=== PATIENT | male | born 1980 | race Caucasian/White ===

== ENCOUNTER 2022-04-11 14:03 | Emergency (ER) | payer MEDICARE, OTHER ==
[~2022-04-11] VITALS: Ht 182.9 cm; Wt 186.4 kg
--- NOTE | 2022-04-11 14:03 | NUR ---
Dr Geiger at the bedside for MSE.
[2022-04-11] MEDS ORDERED: ALBUTEROL SULFATE 2.5 MG/3 ML NEBU NEB ONE (14:15)
[2022-04-11] MEDS ORDERED: methylPREDNISolone SOD SUCC 125 MG/2 ML VIAL IV ONE (14:15)
[2022-04-11] MEDS ORDERED: IPRATROPIUM BROMIDE 0.5 MG/2.5 ML NEBU NEB ONE (14:15)
[2022-04-11] MEDS ORDERED: ALBUTEROL SULFATE 2.5 MG/3 ML NEBU ONE (14:31)
[2022-04-11] MEDS ORDERED: IPRATROPIUM BROMIDE 0.5 MG/2.5 ML NEBU ONE (14:31)
[2022-04-11] MEDS ORDERED: methylPREDNISolone SOD SUCC 125 MG/2 ML VIAL ONE (14:41)
[2022-04-11 14:42] LABS: HEMATOCRIT 27.3 % (36.7-47.1); MEAN CORPUSCULAR HEMOGLOBIN 23.9 uug (23.8-33.4); MEAN CORPUSCULAR VOLUME 77.2 fL (73.0-96.2); PLATELET COUNT (AUTO) 307 K/uL (152-348)
--- NOTE | 2022-04-11 14:56 | NUR ---
Pt is requesting to have Morphine or Dilaudid for his lower extremities pain. Dr Geiger made aware.
[2022-04-11] MEDS ORDERED: ACETAMINOPHEN 325 MG TABLET PO ONE (15:00)
[2022-04-11 15:01] LABS: CARBON DIOXIDE 38 mmol/L (21-32); CHLORIDE 99 mmol/L (98-107); CREATININE 0.4 mg/dL (0.6-1.3); GLUCOSE 97 mg/dL (74-106); POTASSIUM 3.4 mmol/L (3.5-5.1); UREA NITROGEN, BLOOD 9 mg/dL (7-18)
--- NOTE | 2022-04-11 15:10 | NUR ---
Pt is sitting up in bed, eating lunch, NAD noted.
--- NOTE | 2022-04-11 15:30 | NUR ---
ER spoke to Pt's PMD Dr Green. Pt to be transfered back to facility.
[2022-04-11] MEDS ORDERED: BISA10SU61 RC (15:40)
[2022-04-11] MEDS ORDERED: HYDR-3980 PO (15:40)
[2022-04-11] MEDS ORDERED: BENZ-13 PO (15:40)
[2022-04-11] MEDS ORDERED: PALI234D IM (15:40)
[2022-04-11] MEDS ORDERED: TAMS-3 PO (15:40)
[2022-04-11] MEDS ORDERED: FLUT16SP16 BNOSTRILS (15:40)
[2022-04-11] MEDS ORDERED: DULO60CA45 PO (15:40)
[2022-04-11] MEDS ORDERED: NA P133E RC (15:40)
[2022-04-11] MEDS ORDERED: BENZ1TAB7 PO (15:40)
[2022-04-11] MEDS ORDERED: LACT1CAP61 PO (15:40)
[2022-04-11] MEDS ORDERED: METO25TA6 PO (15:40)
[2022-04-11] MEDS ORDERED: PHEN177S31 PO (15:40)
[2022-04-11] MEDS ORDERED: APIX5TAB4 PO (15:40)
[2022-04-11] MEDS ORDERED: MAGN400O6 PO (15:40)
[2022-04-11] MEDS ORDERED: ACET-73 PO (15:40)
[2022-04-11] MEDS ORDERED: LORA-259 PO (15:40)
--- NOTE | 2022-04-11 15:40 | NUR ---
Placed a call to [facility] for CCT transfer, ETA 45 min.
[2022-04-11] MEDS ORDERED: HYDROCODONE/APAP 5-325MG TABLET PO ONE (16:00)
[2022-04-11] MEDS ORDERED: HYDROCODONE/APAP 5-325MG TABLET ONE (16:04)
--- NOTE | 2022-04-11 17:30 | NUR ---
IV removed. Catheter intact and site benign. Pressure and 4x4 gauze applied to site. No bleeding noted.
--- NOTE | 2022-04-11 17:30 | NUR ---
Report given to transfering metal cut off saw operator, labs, xray and EKG result provided. Pt left Er in stable condition. All belongings sent w/ pt. Pt left ER via gurney.
[2022-04-11 17:32] VITALS: BP 155/80
== END 2022-04-11 17:32 ==
LOC: ER 14:03
DX: T17.590A Other foreign object in bronchus causing asphyxiation, initial encounter (principal); X58.XXXA Exposure to other specified factors, initial encounter; Y92.122 Bedroom in nursing home as the place of occurrence of the external cause; E66.01 Morbid (severe) obesity due to excess calories; Z20.822 Contact with and (suspected) exposure to COVID-19; E11.22 Type 2 diabetes mellitus with diabetic chronic kidney disease; N18.9 Chronic kidney disease, unspecified; G20 Parkinson's disease; N40.0 Benign prostatic hyperplasia without lower urinary tract symptoms; I12.9 Hypertensive chronic kidney disease with stage 1 through stage 4 chronic kidney disease, or unspecified chronic kidney disease; Z68.43 Body mass index [BMI] 50.0-59.9, adult; R06.02 Shortness of breath; Z79.899 Other long term (current) drug therapy; Z79.01 Long term (current) use of anticoagulants; F20.9 Schizophrenia, unspecified; Z93.0 Tracheostomy status; Z99.11 Dependence on respirator [ventilator] status
CPT/HCPCS: 36415; 71045; 80048; 83605; 83880; 84484; 85025; 87040 ×2; 87400; 87426; 93005; 96374; 99285; J2930; A4663; J3590

== ENCOUNTER 2022-11-12 23:33 | Inpatient (IN) | payer MEDICARE, OTHER ==
[~2022-11-12] VITALS: Ht 172.7 cm; Wt 172.2 kg
[~2022-11-12 23:33] MED LIST: ACET-73 PO; APIX5TAB4 PO; BENZ-13 PO; BENZ1TAB7 PO; BISA10SU61 RC; DULO60CA45 PO; FLUT16SP16 BNOSTRILS; HYDR-3980 PO; LACT1CAP61 PO; LORA-259 PO; MAGN400O6 PO; METO25TA6 PO; NA P133E RC; PALI234D IM; PHEN177S31 PO; TAMS-3 PO
--- NOTE | 2022-11-12 23:35 | NUR ---
Dr Armijo evaluating patient at bedside. MSE in progress.
[2022-11-13] MEDS ORDERED: CEFTRIAXONE 1 G in IV DEXTROSE 5% 50 ML IV ONE (00:15)
[2022-11-13] MEDS ORDERED: IV NORMAL SALINE 1000 ML BAG IV ONE (00:15)
[2022-11-13] MEDS ORDERED: CEFTRIAXONE /D5W 50ML IVPB **ER PYXIS IV ONE (00:22)
[2022-11-13] MEDS ORDERED: HYDROCODONE/APAP 10-325 MG TABLET PO ONE (00:30)
[2022-11-13] MEDS ORDERED: ONDANSETRON ODT 4 MG TAB.RAPDIS SL ONE (00:30)
[2022-11-13] MEDS ORDERED: HYDROCODONE/APAP 10-325 MG TABLET ONE (00:44)
[2022-11-13] MEDS ORDERED: ONDANSETRON ODT 4 MG TAB.RAPDIS ONE (00:44)
[2022-11-13 00:49] LABS: MEAN CORPUSCULAR HEMOGLOBIN 28.8 uug (23.8-33.4); PLATELET COUNT (AUTO) 307 K/uL (152-348)
[2022-11-13] MEDS ORDERED: DIVA125C2 PO (00:54)
[2022-11-13] MEDS ORDERED: ACET250T3 PO (00:54)
[2022-11-13] MEDS ORDERED: POLY17PO4 PO (00:54)
[2022-11-13] MEDS ORDERED: OXYC-128 PO (00:54)
[2022-11-13] MEDS ORDERED: GABA-532 PO (00:54)
[2022-11-13] MEDS ORDERED: IPRA3AMP22 IH (00:54)
[2022-11-13] MEDS ORDERED: PALI234D IM (00:54)
[2022-11-13] MEDS ORDERED: DIPH25CA83 PO (00:54)
[2022-11-13] MEDS ORDERED: MULT-594 PO (00:54)
[2022-11-13] MEDS ORDERED: LORA2ORA5 PO (00:54)
[2022-11-13] MEDS ORDERED: METO25TA6 PO (00:54)
[2022-11-13] MEDS ORDERED: CHLO473M3 MM (00:54)
[2022-11-13] MEDS ORDERED: DICY20TA11 PO (00:54)
[2022-11-13] MEDS ORDERED: BUPR150T10 PO (00:54)
[2022-11-13] MEDS ORDERED: HYOS0.1273 PO (00:54)
[2022-11-13] MEDS ORDERED: OLAN5TAB70 PO (00:54)
[2022-11-13] MEDS ORDERED: DRY EYE RELIEF EACHEYE (00:54)
[2022-11-13] MEDS ORDERED: PANT40TA49 PO (00:54)
[2022-11-13] MEDS ORDERED: ASCO-375 PO (00:54)
[2022-11-13] MEDS ORDERED: LACT10SO3 PO (00:54)
[2022-11-13] MEDS ORDERED: NA P133E4 RC (00:54)
[2022-11-13] MEDS ORDERED: MAGN400C PO (00:54)
[2022-11-13] MEDS ORDERED: MAGN400O6 PO (00:54)
[2022-11-13] MEDS ORDERED: BUME1TAB8 PO (00:54)
[2022-11-13] MEDS ORDERED: LIDO30AD10 TD (00:54)
[2022-11-13] MEDS ORDERED: MORP15TA PO (00:54)
[2022-11-13] MEDS ORDERED: MELA3TAB41 PO (00:54)
[2022-11-13] MEDS ORDERED: LACT1CAP69 PO (00:54)
[2022-11-13] MEDS ORDERED: SENN-261 PO (00:54)
[2022-11-13] MEDS ORDERED: SIME80TA15 PO (00:58)
[2022-11-13] MEDS ORDERED: BUDE10.2 IH (00:58)
[2022-11-13] MEDS ORDERED: CHOL100045 PO (00:58)
[2022-11-13] MEDS ORDERED: TAMS-3 PO (00:58)
[2022-11-13] MEDS ORDERED: SPIR25TA6 PO (00:58)
[2022-11-13] MEDS ORDERED: ONDA4TAB5 PO (00:58)
[2022-11-13] MEDS ORDERED: SILD50TA PO (00:58)
[2022-11-13 00:59] LABS: CARBON DIOXIDE 31 mmol/L (21-32); CHLORIDE 98 mmol/L (98-107); CREATININE 0.7 mg/dL (0.6-1.3); GLUCOSE 165 mg/dL (74-106); UREA NITROGEN, BLOOD 7 mg/dL (7-18)
[2022-11-13] MEDS ORDERED: INSU100V28 (01:03)
[2022-11-13 01:14] LABS: ALANINE AMINOTRANSFERASE 15 U/L (16-63); ALKALINE PHOSPHATASE 82 U/L (50-136); ASPARTATE AMINOTRANSFERASE 10 U/L (15-37); BILIRUBIN,DIRECT 0.2 mg/dL (0.0-0.2); BILIRUBIN,TOTAL 0.4 mg/dL (0.2-1.0)
--- NOTE | 2022-11-13 02:19 | NUR ---
Chest xray at bedside
--- NOTE | 2022-11-13 02:20 | NUR ---
UA sent to lab
--- NOTE | 2022-11-13 03:00 | NUR ---
Patient voided in urinal
[2022-11-13 03:22] LABS: *BILIRUBIN,URIN NEGATIVE (NEGATIVE); *BLOOD, URINE NEGATIVE (NEGATIVE); *CLARITY,URINE CLEAR (CLEAR); *COLOR,URINE YELLOW (YELLOW); *KETONES,URINE NEGATIVE (NEGATIVE); LEUKOCYTE ESTERASE ,URINE NEGATIVE (NEGATIVE); NITRITE, URINE NEGATIVE (NEGATIVE); PH,URINE 8.5 (5.0-8.0); UGLUCOSE NEGATIVE (NEGATIVE)
[2022-11-13] MEDS ORDERED: VANCOMYCIN IV 200 ML ONE (03:29)
[2022-11-13] MEDS ORDERED: VANCOMYCIN IV 1,000 MG in IV DEXTROSE 5% 250 ML IV ONE (03:30)
--- NOTE | 2022-11-13 03:30 | NUR ---
Pending admission, waiting for [employer] insurance approval.
[2022-11-13] MEDS ORDERED: levoFLOXacin 750 MG/D5W 150 ML PIGGYBACK IV ONE (03:45)
[2022-11-13] MEDS ORDERED: levoFLOXacin 750MG/D5W 150 ML IV ONE (04:16)
--- NOTE | 2022-11-13 09:25 | NUR ---
"OK to admit in our hospital" per ER registration/admitting staff [facility] hospitalist was paged.
--- NOTE | 2022-11-13 09:25 | NUR ---
Zbigniew kaye in ED - 11/13/22 at 0939 by CHRIS "OK to admit in our hospital" per ER registration/admitting staff John. CHANO [place] was paged.
--- NOTE | 2022-11-13 09:40 | NUR ---
Room 308 & nurse Ba will take this patient after the current patient in room 308 will go to 2nd floor medical-surgical floor and after housekeeping cleans room 308.
--- NOTE | 2022-11-13 10:12 | NUR ---
With environmental restoration planner ID#[id number], the patient's legal guardian/conservator MALISSA SIDHU (dad) wants to be contacted for any issues, treatment/procedures, development at telephone# . Patient has a mental disorder hence a copy of LETTERS OF CONSERVATORSHIP is in the chart. Patient's legal guardian/conservator Malissa Sidhu verbally expressed : 1.) that he does not want this patient to go back to [facility] when the current pneumonia is better and when patient is discharged from a hospital 2.) that if possible, this patient be transferred to [facility] with coordination by [facility] employment case manager/ patient's insurance [employer]/ [facility] itself 3.) TO HOLD if possible, patient's [place], morphine, gabapentin or sedatives because it will not help patient's lung function or "lung healing" 4.) to continue patient's psychiatric medicines (pills or powder forms)
--- NOTE | 2022-11-13 12:10 | NUR ---
Patient is resting comfortably on gurney using his personal electronic device, NAD. Patient is still waiting for an available medical-surgical nurse and bed at this time.
[2022-11-13] MEDS ORDERED: CHLORHEXIDINE GLUCONATE 15 ML MOUTHWASH MM SCH (12:15)
[2022-11-13] MEDS ORDERED: FLEET ENEMA 133 ML BOTTLE RC PRN (12:15)
[2022-11-13] MEDS ORDERED: ENOXAPARIN SODIUM 40 MG/0.4 ML DISP.SYRIN SQ SCH (12:30)
[2022-11-13] MEDS ORDERED: ONDANSETRON 4 MG/2 ML VIAL IV PRN (12:30)
[2022-11-13] MEDS ORDERED: ENOXAPARIN SODIUM 40 MG/0.4 ML DISP.SYRIN SQ ONE (12:44)
[2022-11-13] MEDS ORDERED: ACET500C48 PO (12:58)
[2022-11-13] MEDS: HYOSCYAMINE SULFATE 0.125 MG TABLET PO SCH ×2 (13:00→16:49)
--- NOTE | 2022-11-13 13:05 | NUR ---
Nursing supervisor correspondence section called ER and gave assigned room 308 & nurse Gener for this patient
[2022-11-13] MEDS ORDERED: DICYCLOMINE HCL 20 MG TABLET ONE (13:08)
[2022-11-13] MEDS: DIVALPROEX SPRINKLE 125 MG CAP.SPRINK PO SCH ×2 (13:09→16:38)
[2022-11-13] MEDS: DICYCLOMINE HCL 20 MG TABLET PO SCH ×3 (13:09→20:56)
[2022-11-13] MEDS ORDERED: DIVALPROEX 125 MG TABLET.DR PO ONE (13:09)
--- NOTE | 2022-11-13 13:10 | NUR ---
* Neurontin not given 2/2 patient's legal guardian does not want this given at this time.
--- NOTE | 2022-11-13 13:55 | NUR ---
RECEIVED PATIENT FOR ADMISSION 42 YEARS OLD TO ROOM 308 BY MICHAEL WITH DX OF PNEUMONIA.PLACED INTO BED FIXED AND MADE COMFORTABLE PATIENT IS ALERT AND ORIENTED AND ASSISTED WITH THE ADMISSION QUESTIONAIRE ALL ORDERS FROM DR JOHNSON NOTED CALL LIGHT AND PERSONAL BELONGINGS ARE WITHIN EASY REACH.
[2022-11-13 14:59] VITALS: BP 118/55
[2022-11-13] MEDS: GABAPENTIN 300 MG CAPSULE PO SCH ×2 (15:31→17:10)
[2022-11-13] MEDS: PIPERACILLIN SODIUM/TAZOBACTAM 4.5 G in IV DEXTROSE 5% 50 ML IV SCH ×2 (15:32→21:06)
[2022-11-13] MEDS: IV NS 1000 ML 1,000 ML IV PRN (15:32)
[2022-11-13] MEDS: ACETAMINOPHEN 325 MG TABLET PO PRN (15:45)
--- NOTE | 2022-11-13 15:45 | NUR ---
TEMP AT THIS TIME IS 100.6 MEDICATED WITH TYLENOL ORDERED COOLING MEASURES STARTED WILL CONTINUE TO OBSERVE.
[2022-11-13] MEDS: BENZTROPINE MESYLATE 1 MG TABLET PO SCH (16:38)
[2022-11-13] MEDS: DULOXETINE 60 MG CAPSULE.DR PO SCH (16:40)
[2022-11-13] MEDS: SIMETHICONE 80 MG TAB.CHEW PO SCH ×2 (16:40→20:56)
[2022-11-13] MEDS: buPROPion SR 150 MG TABLET.SA PO SCH (16:40)
[2022-11-13] MEDS: MIRALAX 17 GM POWD.PACK PO SCH (16:41)
[2022-11-13] MEDS: OLANZAPINE 2.5 MG TABLET PO SCH (16:46)
[2022-11-13] MEDS: FLUTICASONE PROP NASAL SPRAY 16 GM BOTTLE NS SCH (16:50)
[2022-11-13] MEDS: VANCOMYCIN IV 2,000 MG in IV DEXTROSE 5% 500 ML IV SCH (16:51)
--- NOTE | 2022-11-13 18:00 | NUR ---
PATIENT REFUSED TO EAT DINNER STATED WANTS TO SLEEP NOT EAT AT THIS TIME TRACH COLLAR AT 4L/M WITH NO SIGN AND SYMPTOMS OF SHORTNESS OF BREATH AT THIS TIME NOT IN DISTRESS WILL CONTINUE TO OBSERVE
[2022-11-13 20:53] VITALS: BP 106/58
[2022-11-13] MEDS: TAMSULOSIN HCL 0.4 MG CAP.SR.24H PO SCH (20:56)
[2022-11-13] MEDS: PANTOPRAZOLE SODIUM 40 MG TABLET.DR PO SCH (20:56)
--- NOTE | 2022-11-13 23:20 | NUR ---
AAOx4. Pt is verbal. PMV attached. Has trach collar with 4LPM O2 sating at 92%. Oral and trach suction done as needed. Pt has productive cough with white to brown sputum. No aspiration noted. All needs attended. Will continue to monitor.
[2022-11-14 00:24] VITALS: BP 138/80
[2022-11-14] MEDS: VANCOMYCIN IV 2,000 MG in IV DEXTROSE 5% 500 ML IV SCH ×3 (00:45→20:00)
[2022-11-14] MEDS: PIPERACILLIN SODIUM/TAZOBACTAM 4.5 G in IV DEXTROSE 5% 50 ML IV SCH ×3 (05:00→22:09)
[2022-11-14 05:05] VITALS: BP 133/69
[2022-11-14 06:56] LABS: HEMATOCRIT 31.2 % (36.7-47.1); MEAN CORPUSCULAR HEMOGLOBIN 29.8 uug (23.8-33.4); MEAN CORPUSCULAR VOLUME 91.2 fL (73.0-96.2); PLATELET COUNT (AUTO) 305 K/uL (152-348)
[2022-11-14 07:18] LABS: CREATININE 0.9 mg/dL (0.6-1.3); MAGNESIUM 1.8 mg/dL (1.8-2.4); PHOSPHOROUS 2.5 mg/dL (2.5-4.9); POTASSIUM 3.4 mmol/L (3.5-5.1)
[2022-11-14] MEDS ORDERED: BISACODYL 10 MG SUPP.RECT RC PRN (09:00)
[2022-11-14] MEDS ORDERED: POTASSIUM CHLORIDE 20 MEQ POWDER PACKET PO ONE (09:15)
[2022-11-14] MEDS: LIDOCAINE 5% PATCH TD SCH (10:16)
[2022-11-14] MEDS: OLANZAPINE 2.5 MG TABLET PO SCH ×2 (10:17→18:07)
[2022-11-14] MEDS: FLUTICASONE PROP NASAL SPRAY 16 GM BOTTLE NS SCH ×2 (10:17→18:08)
[2022-11-14] MEDS: DIVALPROEX SPRINKLE 125 MG CAP.SPRINK PO SCH ×3 (10:17→17:57)
[2022-11-14] MEDS: SIMETHICONE 80 MG TAB.CHEW PO SCH ×4 (10:17→20:45)
[2022-11-14] MEDS: DULOXETINE 60 MG CAPSULE.DR PO SCH ×2 (10:17→18:06)
[2022-11-14] MEDS: MIRALAX 17 GM POWD.PACK PO SCH ×2 (10:17→17:57)
[2022-11-14] MEDS: CHLORHEXIDINE GLUCONATE 15 ML MOUTHWASH MM SCH (10:18)
[2022-11-14] MEDS: PANTOPRAZOLE SODIUM 40 MG TABLET.DR PO SCH ×2 (10:18→20:45)
[2022-11-14] MEDS: SENNOSIDES 1 TABLET PO SCH (10:18)
[2022-11-14] MEDS: ASCORBIC ACID 500 MG TABLET PO SCH (10:19)
[2022-11-14] MEDS: DICYCLOMINE HCL 20 MG TABLET PO SCH ×4 (10:19→20:44)
[2022-11-14] MEDS: buPROPion SR 150 MG TABLET.SA PO SCH ×2 (10:19→17:57)
[2022-11-14] MEDS: GABAPENTIN 300 MG CAPSULE PO SCH ×3 (10:19→17:56)
[2022-11-14] MEDS: ACETAzolamide 250 MG TABLET PO SCH (10:20)
[2022-11-14] MEDS: HYOSCYAMINE SULFATE 0.125 MG TABLET PO SCH ×3 (10:20→18:08)
[2022-11-14] MEDS: ENOXAPARIN SODIUM 40 MG/0.4 ML DISP.SYRIN SQ SCH (10:25)
[2022-11-14] MEDS: BENZTROPINE MESYLATE 1 MG TABLET PO SCH ×2 (10:53→17:56)
[2022-11-14 12:00] VITALS: BP 124/68
[2022-11-14] MEDS: IV NS 1000 ML 1,000 ML IV PRN (15:48)
[2022-11-14 15:53] VITALS: BP 112/59
--- NOTE | 2022-11-14 18:55 | NUR ---
PT AO X4. NO ACUTE DISTRESS NOTED. VITALS WNL. NO COMPLAIN OF PAIN. MULTIPLE WOUND NOTED. PICTURE TAKEN. WOUND CONSULT ORDER. SWITCHED PT BED TO BARIMAXX BED. STILL ON ABX TX. PT POSITIVE FOR MRSA BOTH NARES. CONTACT ISOLATION INLACED. CALL LIGHT ON BEDSIDE. SAFETY MEASURE MAINTAINED. WILL ENDORSED TO NOC SHIFT.
[2022-11-14 20:00] VITALS: BP 120/65
--- NOTE | 2022-11-14 20:12 | NUR ---
vanco trough 34.1; vanco dose due at this time; not administered
--- NOTE | 2022-11-14 20:30 | NUR ---
referred to outside pharmacy regarding 0600H vancomycin dose; per pharmacist do not give 0600 dose as well and will be referred to in house pharmacist
[2022-11-14] MEDS: TAMSULOSIN HCL 0.4 MG CAP.SR.24H PO SCH (20:44)
[2022-11-14] MEDS: OXYCODONE/APAP 5-325 MG TABLET PO PRN (20:46)
[2022-11-15 00:27] VITALS: BP 133/69
[2022-11-15 05:00] VITALS: BP 116/59
[2022-11-15] MEDS: PIPERACILLIN SODIUM/TAZOBACTAM 4.5 G in IV DEXTROSE 5% 50 ML IV SCH (05:58)
[2022-11-15] MEDS: IV NS 1000 ML 1,000 ML IV PRN ×2 (05:58→17:05)
--- NOTE | 2022-11-15 06:49 | NUR ---
pt was cleaned and changed last night; patient REFUSED to be cleaned and changed this AM ; will endorse.
[2022-11-15 06:56] LABS: CREATININE 1.8 mg/dL (0.6-1.3); POTASSIUM 3.7 mmol/L (3.5-5.1)
[2022-11-15 07:07] LABS: HEMATOCRIT 30.2 % (36.7-47.1); MEAN CORPUSCULAR HEMOGLOBIN 29.3 uug (23.8-33.4); MEAN CORPUSCULAR VOLUME 92.8 fL (73.0-96.2); PLATELET COUNT (AUTO) 310 K/uL (152-348)
[2022-11-15] MEDS: GABAPENTIN 300 MG CAPSULE PO SCH ×3 (09:00→17:51)
[2022-11-15] MEDS: LIDOCAINE 5% PATCH TD SCH (09:42)
[2022-11-15] MEDS: buPROPion SR 150 MG TABLET.SA PO SCH ×2 (09:47→17:51)
[2022-11-15] MEDS: DIVALPROEX SPRINKLE 125 MG CAP.SPRINK PO SCH ×3 (09:47→17:51)
[2022-11-15] MEDS: BENZTROPINE MESYLATE 1 MG TABLET PO SCH ×2 (09:47→17:52)
[2022-11-15] MEDS: SIMETHICONE 80 MG TAB.CHEW PO SCH ×4 (09:47→21:04)
[2022-11-15] MEDS: DULOXETINE 60 MG CAPSULE.DR PO SCH ×2 (09:47→17:51)
[2022-11-15] MEDS: SENNOSIDES 1 TABLET PO SCH (09:47)
[2022-11-15] MEDS: PANTOPRAZOLE SODIUM 40 MG TABLET.DR PO SCH ×2 (09:47→21:04)
[2022-11-15] MEDS: DICYCLOMINE HCL 20 MG TABLET PO SCH ×4 (09:47→21:03)
[2022-11-15] MEDS: OLANZAPINE 2.5 MG TABLET PO SCH ×2 (09:47→17:51)
[2022-11-15] MEDS: FLUTICASONE PROP NASAL SPRAY 16 GM BOTTLE NS SCH ×2 (09:48→17:51)
[2022-11-15] MEDS: ACETAzolamide 250 MG TABLET PO SCH (09:48)
[2022-11-15] MEDS: ASCORBIC ACID 500 MG TABLET PO SCH (09:48)
[2022-11-15] MEDS: CHLORHEXIDINE GLUCONATE 15 ML MOUTHWASH MM SCH (09:48)
[2022-11-15] MEDS: HYOSCYAMINE SULFATE 0.125 MG TABLET PO SCH ×3 (09:49→17:52)
[2022-11-15] MEDS: MIRALAX 17 GM POWD.PACK PO SCH ×2 (09:49→17:52)
[2022-11-15] MEDS: ENOXAPARIN SODIUM 40 MG/0.4 ML DISP.SYRIN SQ SCH (09:51)
[2022-11-15] MEDS: MUPIROCIN 2% OINT 22 GM TUBE NS SCH ×2 (09:55→21:03)
--- NOTE | 2022-11-15 11:32 | NUR ---
hospitalist okayed giving gabapentin and sedatives.
[2022-11-15 12:00] VITALS: BP 128/75
[2022-11-15] MEDS: CEFEPIME HCL 2 G in IV DEXTROSE 5% 100 ML IV SCH ×2 (15:33→21:03)
[2022-11-15 16:00] VITALS: BP 129/68
[2022-11-15] MEDS ORDERED: VANCOMYCIN IV 1,250 MG in IV DEXTROSE 5% 250 ML IV ONE (16:00)
--- NOTE | 2022-11-15 18:11 | NUR ---
shift note. no acute changes. pt denies sob or pain. wound tx done. prn tacheal suction done. pt refused to be reposition. pt needs met. call light on bedside. contact precaution observed. will endorsed to noc shift.
[2022-11-15] MEDS: TAMSULOSIN HCL 0.4 MG CAP.SR.24H PO SCH (21:03)
[2022-11-15] MEDS: OXYCODONE/APAP 5-325 MG TABLET PO PRN (21:04)
[2022-11-16] MEDS: CEFEPIME HCL 2 G in IV DEXTROSE 5% 100 ML IV SCH ×3 (05:29→23:08)
--- NOTE | 2022-11-16 06:00 | NUR ---
END OF SHIFT REPORT Pt rested well in between care; trache care done; suctioned trache secretions; incontinence care done; repositioned for comfort;
--- NOTE | 2022-11-16 06:55 | NUR ---
Pt reported that his 2nd phone is missing; RN and MEDICAL CODING SPECIALIST Lexa went through the bed, cabinet and hamper and trash bin; none found. will refer to Charge Nurse Milvia.
[2022-11-16] MEDS: REMEDY ESSENTIAL ZINC PASTE 113 GM TOP SCH (07:00)
[2022-11-16 07:19] LABS: HEMATOCRIT 29.9 % (36.7-47.1); MEAN CORPUSCULAR HEMOGLOBIN 30.1 uug (23.8-33.4); MEAN CORPUSCULAR VOLUME 93.6 fL (73.0-96.2); PLATELET COUNT (AUTO) 320 K/uL (152-348)
[2022-11-16 07:42] LABS: CREATININE 2.3 mg/dL (0.6-1.3); POTASSIUM 3.7 mmol/L (3.5-5.1)
[2022-11-16] MEDS: BENZTROPINE MESYLATE 1 MG TABLET PO SCH ×2 (09:00→17:24)
[2022-11-16] MEDS: DICYCLOMINE HCL 20 MG TABLET PO SCH ×4 (09:01→21:00)
[2022-11-16] MEDS: DIVALPROEX SPRINKLE 125 MG CAP.SPRINK PO SCH ×3 (09:01→17:24)
[2022-11-16] MEDS: SIMETHICONE 80 MG TAB.CHEW PO SCH ×4 (09:01→21:00)
[2022-11-16] MEDS: PANTOPRAZOLE SODIUM 40 MG TABLET.DR PO SCH ×2 (09:01→21:00)
[2022-11-16] MEDS: ASCORBIC ACID 500 MG TABLET PO SCH (09:01)
[2022-11-16] MEDS: HYOSCYAMINE SULFATE 0.125 MG TABLET PO SCH ×3 (09:01→17:25)
[2022-11-16] MEDS: DULOXETINE 60 MG CAPSULE.DR PO SCH ×2 (09:01→17:25)
[2022-11-16] MEDS: LIDOCAINE 5% PATCH TD SCH (09:02)
[2022-11-16] MEDS: MIRALAX 17 GM POWD.PACK PO SCH ×2 (09:02→17:25)
[2022-11-16] MEDS: GABAPENTIN 300 MG CAPSULE PO SCH ×3 (09:02→17:24)
[2022-11-16] MEDS: SENNOSIDES 1 TABLET PO SCH (09:02)
[2022-11-16] MEDS: OLANZAPINE 2.5 MG TABLET PO SCH ×2 (09:02→17:25)
[2022-11-16] MEDS: buPROPion SR 150 MG TABLET.SA PO SCH ×2 (09:02→17:25)
[2022-11-16] MEDS: CHLORHEXIDINE GLUCONATE 15 ML MOUTHWASH MM SCH (09:03)
[2022-11-16] MEDS: ACETAzolamide 250 MG TABLET PO SCH (09:03)
[2022-11-16] MEDS: ENOXAPARIN SODIUM 40 MG/0.4 ML DISP.SYRIN SQ SCH (09:03)
[2022-11-16] MEDS: FLUTICASONE PROP NASAL SPRAY 16 GM BOTTLE NS SCH ×2 (10:48→17:26)
[2022-11-16] MEDS: MUPIROCIN 2% OINT 22 GM TUBE NS SCH ×2 (11:23→23:07)
--- NOTE | 2022-11-16 11:24 | NUR ---
WOUND CARE CONSULT: PT PRESENTS WITH LEFT BREASTFOLD WOUND AND RT BUTTOCK STAGE 3 ULCER, PRESENT ON ADMISSION. DR TELLEZ CALLED FOR SURGICAL CONSULT. DISCUSSED SKIN PROTECTION AND WOUND CARE RECOMMENDATIONS WITH NURSING STAFF. PT IS ON [employer]. IN AGREEMENT WITH PLAN OF CARE. Addendum: 11/16/22 at 1126 by MILDRED ROSS RN Amended: Links added. Addendum: 11/16/22 at 1129 by MILDRED ROSS RN ABDOMINAL FOLD WOUND ALSO NOTED IN ADMISSION PHOTOS.
[2022-11-16 11:46] VITALS: BP 118/69
[2022-11-16] MEDS: IV NS 1000 ML 1,000 ML IV PRN (12:35)
[2022-11-16 15:47] VITALS: BP 124/69
[2022-11-16] MEDS: NEOMY/BACITRAC/POLYMI OINT 28.35 GM TUBE TOP SCH (16:30)
[2022-11-16] MEDS: THERAHONEY GEL 1.5 OZ TUBE TOP SCH (16:30)
--- NOTE | 2022-11-16 19:55 | NUR ---
Pt noted desating at 70s, labored breathing and restless. Maintained head of bed elevated. RT at bedside. Called rapid response. Trach suctioning done by RT. Increased O2 to 10LPM via trach collar. Rechecked O2 sat. Pt saturating at 96%. Dr. Armijo at the scene. Assessed pt and with orders noted. CXR done at bedside. Dr. Saha notified of pt condition and ordered to transfer pt to ICU/CCU due to respiratory distress. Report given to JONNIE Espitia. Pt transferred to ER.
--- NOTE | 2022-11-16 20:00 | NUR ---
Pt brought down from Telemetry floor to ER after rapid response, patient is now on ventilator under CCU status.
[2022-11-16] MEDS: TAMSULOSIN HCL 0.4 MG CAP.SR.24H PO SCH (21:00)
[2022-11-16 21:43] LABS: ABG BASE EXCESS -3.1 mmol/L; ABG PCO2 60.7 mmHg (35.0-45.0); ABG PH 7.233 (7.350-7.450); ABG PO2 158.7 mmHg (75.0-100.0); ABG SITE RIGHT RADIAL; ABG TOTAL HEMOGLOBIN 10.9 G/dL (13.5-18.0); MetHb 0.3 % (0.0-1.5); O2Hb 98.8 % (94.0-97.0); VENT MODE VENT - A/C; VT, ABG 550 mL
[2022-11-16] MEDS ORDERED: NOREPINEPHRINE BITARTRATE 8 MG in IV NORMAL SALINE 242 ML IV PRN (21:45)
[2022-11-16] MEDS ORDERED: PROPOFOL 100 ML IV PRN (21:45)
[2022-11-16] MEDS ORDERED: CEFEPIME HCL 1 G VIAL ONE (22:50)
[2022-11-16] MEDS ORDERED: MUPIROCIN 2% OINT 22 GM TUBE ONE (22:50)
[2022-11-17] VITALS (17 sets, daily range): BP systolic 106–140; BP diastolic 55–84
[2022-11-17 05:50] LABS: ABG BASE EXCESS 3.1 mmol/L; ABG HCO3 28.5 mmol/L; ABG PCO2 47.7 mmHg (35.0-45.0); ABG PH 7.394 (7.350-7.450); ABG PO2 110.3 mmHg (75.0-100.0); ABG SITE RIGHT RADIAL; ABG TOTAL HEMOGLOBIN 9.7 G/dL (13.5-18.0); COHb 0.3 % (0.5-1.5); MetHb 0.1 % (0.0-1.5); VENT MODE VENT - A/C; VT, ABG 450 mL
[2022-11-17] MEDS ORDERED: CEFEPIME HCL 1 G VIAL ONE (06:06)
[2022-11-17] MEDS: CEFEPIME HCL 2 G in IV DEXTROSE 5% 100 ML IV SCH ×3 (06:19→20:59)
--- NOTE | 2022-11-17 07:30 | NUR ---
Received report from ED nurse about patient. Pt is on ventilator settings AC 20 TV 550 FIO2 70% PEEP 5. Pt VSS and resting comfortably. RT notified about need to transport to CCU as soon as possible
--- NOTE | 2022-11-17 09:14 | NUR ---
Pt brought to CCU and report given to Rupa Bledsoe RN. Pt in CCU bed 1 VSS stable and resting comfortably and saturating well
[2022-11-17] MEDS: MIRALAX 17 GM POWD.PACK PO SCH ×2 (09:23→17:08)
[2022-11-17] MEDS: LIDOCAINE 5% PATCH TD SCH (09:23)
[2022-11-17] MEDS: CHLORHEXIDINE GLUCONATE 15 ML MOUTHWASH MM SCH (09:23)
[2022-11-17] MEDS: MUPIROCIN 2% OINT 22 GM TUBE NS SCH ×2 (09:23→20:53)
[2022-11-17] MEDS: SENNOSIDES 1 TABLET PO SCH (09:23)
[2022-11-17] MEDS: GABAPENTIN 300 MG CAPSULE PO SCH ×3 (09:23→17:08)
[2022-11-17] MEDS: DIVALPROEX SPRINKLE 125 MG CAP.SPRINK PO SCH ×3 (09:23→17:08)
[2022-11-17] MEDS: ASCORBIC ACID 500 MG TABLET PO SCH (09:23)
[2022-11-17] MEDS: PANTOPRAZOLE SODIUM 40 MG TABLET.DR PO SCH ×2 (09:28→20:48)
[2022-11-17] MEDS: ENOXAPARIN SODIUM 40 MG/0.4 ML DISP.SYRIN SQ SCH (09:31)
[2022-11-17 09:36] LABS: HEMATOCRIT 28.7 % (36.7-47.1); MEAN CORPUSCULAR HEMOGLOBIN 28.8 uug (23.8-33.4); MEAN CORPUSCULAR VOLUME 93.6 fL (73.0-96.2); PLATELET COUNT (AUTO) 358 K/uL (152-348)
[2022-11-17 09:49] LABS: BILIRUBIN,TOTAL 0.3 mg/dL (0.2-1.0); CREATININE 2.3 mg/dL (0.6-1.3); MAGNESIUM 2.4 mg/dL (1.8-2.4); PHOSPHOROUS 3.7 mg/dL (2.5-4.9); POTASSIUM 3.8 mmol/L (3.5-5.1); TOTAL PROTEIN, SERUM 8.3 g/dL (6.4-8.2)
[2022-11-17] MEDS: FLUTICASONE PROP NASAL SPRAY 16 GM BOTTLE NS SCH ×2 (10:11→17:09)
[2022-11-17] MEDS: SIMETHICONE 80 MG TAB.CHEW PO SCH ×4 (10:12→20:51)
[2022-11-17] MEDS: OLANZAPINE 2.5 MG TABLET PO SCH ×2 (10:12→17:16)
[2022-11-17] MEDS: buPROPion SR 150 MG TABLET.SA PO SCH ×2 (10:12→17:10)
[2022-11-17] MEDS: DULOXETINE 60 MG CAPSULE.DR PO SCH ×2 (10:12→17:13)
[2022-11-17] MEDS: BENZTROPINE MESYLATE 1 MG TABLET PO SCH ×2 (10:13→17:12)
[2022-11-17] MEDS: DICYCLOMINE HCL 20 MG TABLET PO SCH ×4 (10:13→20:52)
[2022-11-17] MEDS: HYOSCYAMINE SULFATE 0.125 MG TABLET PO SCH ×3 (10:13→17:06)
[2022-11-17] MEDS: THERAHONEY GEL 1.5 OZ TUBE TOP SCH (10:45)
[2022-11-17] MEDS: REMEDY ESSENTIAL ZINC PASTE 113 GM TOP PRN (10:45)
[2022-11-17] MEDS: NEOMY/BACITRAC/POLYMI OINT 28.35 GM TUBE TOP SCH (10:45)
[2022-11-17] MEDS: REMEDY ESSENTIAL ZINC PASTE 113 GM TOP SCH ×2 (10:52→20:53)
[2022-11-17] MEDS ORDERED: VANCOMYCIN IV 1,000 MG in IV DEXTROSE 5% 250 ML IV ONE (11:30)
[2022-11-17] MEDS ORDERED: METOPROLOL TARTRATE 5 MG/5 ML VIAL IVP PRN (18:30)
[2022-11-17] MEDS: TAMSULOSIN HCL 0.4 MG CAP.SR.24H PO SCH (20:48)
[2022-11-17] MEDS: METOPROLOL TARTRATE 25 MG TABLET PO SCH (20:58)
[2022-11-17] MEDS: IV NS 1000 ML 1,000 ML IV PRN (21:39)
[2022-11-18] VITALS (25 sets, daily range): BP systolic 95–151; BP diastolic 28–85
[2022-11-18] MEDS: CEFEPIME HCL 2 G in IV DEXTROSE 5% 100 ML IV SCH ×3 (05:08→22:25)
[2022-11-18 05:35] LABS: HEMATOCRIT 23.9 % (36.7-47.1); MEAN CORPUSCULAR HEMOGLOBIN 29.5 uug (23.8-33.4); MEAN CORPUSCULAR VOLUME 92.5 fL (73.0-96.2); PLATELET COUNT (AUTO) 345 K/uL (152-348)
[2022-11-18 05:43] LABS: MAGNESIUM 2.3 mg/dL (1.8-2.4); PHOSPHOROUS 3.1 mg/dL (2.5-4.9)
[2022-11-18 05:44] LABS: CREATININE 2.1 mg/dL (0.6-1.3); POTASSIUM 3.8 mmol/L (3.5-5.1)
--- NOTE | 2022-11-18 07:30 | NUR ---
Received the patient from Patrick Murphy RN appointment manager nurse. pt is resting comfortably and VS stable IV infusing at 75 ml/hr. Pt on ventilator AC 20 TV 550 FIO2 40% PEEP 5.
[2022-11-18] MEDS: MUPIROCIN 2% OINT 22 GM TUBE NS SCH ×2 (08:25→22:24)
[2022-11-18] MEDS: FLUTICASONE PROP NASAL SPRAY 16 GM BOTTLE NS SCH ×2 (08:26→17:21)
[2022-11-18] MEDS: DICYCLOMINE HCL 20 MG TABLET PO SCH ×4 (08:28→22:23)
[2022-11-18] MEDS: BENZTROPINE MESYLATE 1 MG TABLET PO SCH ×2 (08:33→17:25)
[2022-11-18] MEDS: DULOXETINE 60 MG CAPSULE.DR PO SCH ×2 (08:34→17:24)
[2022-11-18] MEDS: HYOSCYAMINE SULFATE 0.125 MG TABLET PO SCH ×3 (08:35→17:26)
[2022-11-18] MEDS: buPROPion SR 150 MG TABLET.SA PO SCH ×2 (08:37→17:27)
[2022-11-18] MEDS: SIMETHICONE 80 MG TAB.CHEW PO SCH ×4 (08:37→21:42)
[2022-11-18] MEDS: OLANZAPINE 2.5 MG TABLET PO SCH ×2 (08:38→17:29)
[2022-11-18] MEDS: NEOMY/BACITRAC/POLYMI OINT 28.35 GM TUBE TOP SCH (08:38)
[2022-11-18] MEDS: MIRALAX 17 GM POWD.PACK PO SCH ×2 (08:43→17:00)
[2022-11-18] MEDS: CHLORHEXIDINE GLUCONATE 15 ML MOUTHWASH MM SCH (08:43)
[2022-11-18] MEDS: GABAPENTIN 300 MG CAPSULE PO SCH ×3 (08:43→17:19)
[2022-11-18] MEDS: LIDOCAINE 5% PATCH TD SCH (08:43)
[2022-11-18] MEDS: METOPROLOL TARTRATE 25 MG TABLET PO SCH ×2 (08:44→22:20)
[2022-11-18] MEDS: ASCORBIC ACID 500 MG TABLET PO SCH (08:44)
[2022-11-18] MEDS: PANTOPRAZOLE SODIUM 40 MG TABLET.DR PO SCH ×2 (08:44→22:20)
[2022-11-18] MEDS: DIVALPROEX SPRINKLE 125 MG CAP.SPRINK PO SCH ×3 (08:44→17:19)
[2022-11-18] MEDS: SENNOSIDES 1 TABLET PO SCH (08:44)
[2022-11-18] MEDS: REMEDY ESSENTIAL ZINC PASTE 113 GM TOP SCH ×2 (08:48→21:00)
[2022-11-18] MEDS: THERAHONEY GEL 1.5 OZ TUBE TOP SCH (08:48)
[2022-11-18] MEDS: ENOXAPARIN SODIUM 40 MG/0.4 ML DISP.SYRIN SQ SCH (08:52)
--- NOTE | 2022-11-18 15:30 | NUR ---
pt refusing IV and pulling on the line. IV stopped will try to restart if pt will allow the infusion without pulling the line out again.
[2022-11-18] MEDS: TAMSULOSIN HCL 0.4 MG CAP.SR.24H PO SCH (22:20)
[2022-11-18] MEDS: REMEDY ESSENTIAL ZINC PASTE 113 GM TOP PRN ×2 (22:25→22:29)
[2022-11-19] VITALS (14 sets, daily range): BP systolic 99–131; BP diastolic 57–78
[2022-11-19] MEDS: OXYCODONE/APAP 5-325 MG TABLET PO PRN ×3 (02:02→23:04)
[2022-11-19 05:01] LABS: HEMATOCRIT 25.1 % (36.7-47.1); MEAN CORPUSCULAR HEMOGLOBIN 28.9 uug (23.8-33.4); PLATELET COUNT (AUTO) 348 K/uL (152-348)
[2022-11-19] MEDS: CEFEPIME HCL 2 G in IV DEXTROSE 5% 100 ML IV SCH ×3 (05:02→22:00)
[2022-11-19 05:19] LABS: CREATININE 2.2 mg/dL (0.6-1.3); MAGNESIUM 2.3 mg/dL (1.8-2.4); PHOSPHOROUS 3.3 mg/dL (2.5-4.9); POTASSIUM 3.7 mmol/L (3.5-5.1)
[2022-11-19] MEDS ORDERED: VANCOMYCIN IV 1,000 MG in IV DEXTROSE 5% 250 ML IV ONE (08:00)
[2022-11-19] MEDS: MUPIROCIN 2% OINT 22 GM TUBE NS SCH ×2 (08:40→21:00)
[2022-11-19] MEDS: NEOMY/BACITRAC/POLYMI OINT 28.35 GM TUBE TOP SCH (08:41)
[2022-11-19] MEDS: THERAHONEY GEL 1.5 OZ TUBE TOP SCH (08:41)
[2022-11-19] MEDS: DICYCLOMINE HCL 20 MG TABLET PO SCH ×4 (08:42→21:00)
[2022-11-19] MEDS: FLUTICASONE PROP NASAL SPRAY 16 GM BOTTLE NS SCH ×2 (08:42→16:22)
[2022-11-19] MEDS: DULOXETINE 60 MG CAPSULE.DR PO SCH ×2 (08:43→16:24)
[2022-11-19] MEDS: BENZTROPINE MESYLATE 1 MG TABLET PO SCH ×2 (08:44→16:25)
[2022-11-19] MEDS: MIRALAX 17 GM POWD.PACK PO SCH ×2 (08:45→16:25)
[2022-11-19] MEDS: HYOSCYAMINE SULFATE 0.125 MG TABLET PO SCH ×3 (08:45→16:23)
[2022-11-19] MEDS: SIMETHICONE 80 MG TAB.CHEW PO SCH (08:46)
[2022-11-19] MEDS: SENNOSIDES 1 TABLET PO SCH (08:47)
[2022-11-19] MEDS: REMEDY ESSENTIAL ZINC PASTE 113 GM TOP SCH ×2 (08:47→21:00)
[2022-11-19] MEDS: buPROPion SR 150 MG TABLET.SA PO SCH ×2 (08:47→16:23)
[2022-11-19] MEDS: METOPROLOL TARTRATE 25 MG TABLET PO SCH ×2 (08:54→21:00)
[2022-11-19] MEDS: DIVALPROEX SPRINKLE 125 MG CAP.SPRINK PO SCH ×3 (08:54→16:27)
[2022-11-19] MEDS: PANTOPRAZOLE SODIUM 40 MG TABLET.DR PO SCH ×2 (08:55→21:00)
[2022-11-19] MEDS: LIDOCAINE 5% PATCH TD SCH (08:58)
[2022-11-19] MEDS: ENOXAPARIN SODIUM 40 MG/0.4 ML DISP.SYRIN SQ SCH (08:58)
[2022-11-19] MEDS: ASCORBIC ACID 500 MG TABLET PO SCH (08:58)
[2022-11-19] MEDS: CHLORHEXIDINE GLUCONATE 15 ML MOUTHWASH MM SCH (08:58)
[2022-11-19] MEDS: GABAPENTIN 300 MG CAPSULE PO SCH ×3 (09:12→16:27)
[2022-11-19] MEDS: OLANZAPINE 2.5 MG TABLET PO SCH ×2 (09:27→16:23)
[2022-11-19] MEDS ORDERED: SIMETHICONE 80 MG TAB.CHEW PO PRN (11:45)
--- NOTE | 2022-11-19 14:19 | NUR ---
Asked for pain pill offered and then refused spit it in the water. Reece Jin RN present and pharmacy notified by charge nurse.
[2022-11-19] MEDS: TAMSULOSIN HCL 0.4 MG CAP.SR.24H PO SCH (21:00)
[2022-11-20] VITALS (10 sets, daily range): BP systolic 112–148; BP diastolic 61–91
[2022-11-20] MEDS: OXYCODONE/APAP 5-325 MG TABLET PO PRN ×2 (04:10→22:10)
[2022-11-20 05:06] LABS: A/G RATIO 0.5 (0.7-1.7); ALBUMIN 2.4 g/dL (2.9-4.4); ALPHA-1-GLOBULIN 0.5 g/dL (0.0-0.4); ALPHA-2-GLOBULIN 0.9 g/dL (0.4-1.0); BETA GLOBULIN 1.3 g/dL (0.7-1.3); GAMMA GLOBULIN 2.2 g/dL (0.4-1.8); GLOBULIN, TOTAL 4.9 g/dL (2.2-3.9); M-SPIKE Not Observed g/dL (Not Observed)
[2022-11-20 05:18] LABS: HEMATOCRIT 26.6 % (36.7-47.1); MEAN CORPUSCULAR HEMOGLOBIN 29.5 uug (23.8-33.4); MEAN CORPUSCULAR VOLUME 91.8 fL (73.0-96.2); PLATELET COUNT (AUTO) 368 K/uL (152-348)
[2022-11-20 05:30] LABS: CREATININE 2.3 mg/dL (0.6-1.3); MAGNESIUM 2.4 mg/dL (1.8-2.4); PHOSPHOROUS 3.9 mg/dL (2.5-4.9); POTASSIUM 3.8 mmol/L (3.5-5.1)
[2022-11-20] MEDS: CEFEPIME HCL 2 G in IV DEXTROSE 5% 100 ML IV SCH ×3 (06:43→21:52)
[2022-11-20 08:16] LABS: ABG BASE EXCESS 0.1 mmol/L; ABG HCO3 26.4 mmol/L; ABG PH 7.341 (7.350-7.450); ABG PO2 49.1 mmHg (75.0-100.0); ABG SITE RIGHT BRACHIAL; ABG TOTAL HEMOGLOBIN 13.2 G/dL (13.5-18.0); COHb 0.8 % (0.5-1.5); MetHb 0.3 % (0.0-1.5); O2Hb 83.5 % (94.0-97.0); VENT MODE VENT - A/C; VT, ABG 550 mL
[2022-11-20] MEDS: THERAHONEY GEL 1.5 OZ TUBE TOP SCH (08:18)
[2022-11-20] MEDS: buPROPion SR 150 MG TABLET.SA PO SCH ×2 (08:19→17:13)
[2022-11-20] MEDS: DULOXETINE 60 MG CAPSULE.DR PO SCH ×2 (08:19→17:12)
[2022-11-20] MEDS: FLUTICASONE PROP NASAL SPRAY 16 GM BOTTLE NS SCH ×2 (08:19→17:15)
[2022-11-20] MEDS: MUPIROCIN 2% OINT 22 GM TUBE NS SCH ×3 (08:19→22:02)
[2022-11-20] MEDS: BENZTROPINE MESYLATE 1 MG TABLET PO SCH ×2 (08:20→17:14)
[2022-11-20] MEDS: HYOSCYAMINE SULFATE 0.125 MG TABLET PO SCH ×3 (08:21→17:14)
[2022-11-20] MEDS: DICYCLOMINE HCL 20 MG TABLET PO SCH ×4 (08:21→21:53)
[2022-11-20] MEDS: SENNOSIDES 1 TABLET PO SCH (08:22)
[2022-11-20] MEDS: OLANZAPINE 2.5 MG TABLET PO SCH ×2 (08:22→17:12)
[2022-11-20] MEDS: MIRALAX 17 GM POWD.PACK PO SCH ×2 (08:22→17:00)
[2022-11-20] MEDS: REMEDY ESSENTIAL ZINC PASTE 113 GM TOP SCH ×2 (08:23→21:00)
[2022-11-20] MEDS: NEOMY/BACITRAC/POLYMI OINT 28.35 GM TUBE TOP SCH (08:23)
[2022-11-20] MEDS: CHLORHEXIDINE GLUCONATE 15 ML MOUTHWASH MM SCH (08:40)
[2022-11-20] MEDS: GABAPENTIN 300 MG CAPSULE PO SCH ×3 (08:42→17:16)
[2022-11-20] MEDS: DIVALPROEX SPRINKLE 125 MG CAP.SPRINK PO SCH ×3 (08:42→17:16)
[2022-11-20] MEDS: ASCORBIC ACID 500 MG TABLET PO SCH (08:42)
[2022-11-20] MEDS: ENOXAPARIN SODIUM 40 MG/0.4 ML DISP.SYRIN SQ SCH (08:42)
[2022-11-20] MEDS: LIDOCAINE 5% PATCH TD SCH (08:42)
[2022-11-20] MEDS: METOPROLOL TARTRATE 25 MG TABLET PO SCH ×2 (08:45→21:53)
[2022-11-20] MEDS: PANTOPRAZOLE SODIUM 40 MG TABLET.DR PO SCH ×2 (08:45→21:53)
--- NOTE | 2022-11-20 08:55 | NUR ---
Calm and cooperative feed self ate 100% of meal without difficulties.
--- NOTE | 2022-11-20 09:02 | NUR ---
late entry 11/19/22 1145 Father of patient Georgian speaking Annabel extension service specialist in charge translated. Father requested RT to deflate trach cuff so he can speak to patient. Trach cuff deflated per RT and request promptly. Father requested SENIOR UNDERWRITING ASSISTANT explained RN just cleaned patient did morning care and served lunch with set up. Father requested white cups brought 3. Father motioned Annabel CRISTINA Charge into room and pointed at the closed garbage can. Father requested it be emptied now this minute to Annabel Charge nurse. She explained we just finished with morning care garbage bins will be emptied at scheduled times per house keeping. Father voice wash getting louder. Security and Environmental Aide Leena Montero present. Explained hospital routines and visiting policy. Father said he needs to challenge the visiting policy and this information for his Gis Instructor and he wants to report the Charge nurse for explaining housekeeping rounds and garbage empty time also demanded to speak with Dr. Cota and he walked in the door and updated dad. Resolution special request to housekeeping to empty garbage cans done at that time.
--- NOTE | 2022-11-20 10:24 | NUR ---
Father at bedside visiting patient requesting a copy of signed consent for wound debridement referred to medical records for request.
[2022-11-20] MEDS: IV NS 1000 ML 1,000 ML IV PRN (13:15)
--- NOTE | 2022-11-20 14:33 | NUR ---
Resting comfortably with eyes closed. Kept clean, warm, and dry. Repositioned ever 2 hours can move self reminded in bed.
--- NOTE | 2022-11-20 14:46 | NUR ---
Ate 100% of meals no complications.
--- NOTE | 2022-11-20 15:25 | NUR ---
RT PT WAS PLACED ON CPAP WITH 0 PS PER MD ORDER AND TESTED FOR RSBI. PT WAS MONITORED FOR RSBI TRIAL. RSBI 37 BREATHS/MIN/L POST RSBI TRIAL RR INCREASED AND WAS PLACED BACK ON PREVIOUS VENT SETTINGS. RN MADE AWARE.
[2022-11-20] MEDS: TAMSULOSIN HCL 0.4 MG CAP.SR.24H PO SCH (21:54)
[2022-11-20] MEDS: MELATONIN 3 MG TABLET PO PRN (21:55)
[2022-11-20] MEDS ORDERED: VANCOMYCIN IV 1,000 MG in IV DEXTROSE 5% 250 ML IV ONE (22:00)
[2022-11-21] VITALS (12 sets, daily range): BP systolic 102–155; BP diastolic 67–99
[2022-11-21] MEDS: CEFEPIME HCL 2 G in IV DEXTROSE 5% 100 ML IV SCH ×3 (05:12→21:48)
[2022-11-21] MEDS: OXYCODONE/APAP 5-325 MG TABLET PO PRN ×2 (05:27→19:51)
[2022-11-21 07:23] LABS: HEMATOCRIT 28.9 % (36.7-47.1); MEAN CORPUSCULAR HEMOGLOBIN 29.1 uug (23.8-33.4); MEAN CORPUSCULAR VOLUME 92.8 fL (73.0-96.2); PLATELET COUNT (AUTO) 359 K/uL (152-348)
--- NOTE | 2022-11-21 07:24 | NUR ---
REPORT GIVEN TO JONNIE COLE
[2022-11-21 07:36] LABS: CREATININE 2.2 mg/dL (0.6-1.3); MAGNESIUM 2.2 mg/dL (1.8-2.4); PHOSPHOROUS 3.9 mg/dL (2.5-4.9); POTASSIUM 3.9 mmol/L (3.5-5.1)
[2022-11-21 08:25] LABS: ABG BASE EXCESS -0.1 mmol/L; ABG HCO3 26.1 mmol/L; ABG PCO2 49.2 mmHg (35.0-45.0); ABG PH 7.342 (7.350-7.450); ABG PO2 87.2 mmHg (75.0-100.0); ABG SITE RIGHT RADIAL; ABG TOTAL HEMOGLOBIN 10.7 G/dL (13.5-18.0); COHb 0.6 % (0.5-1.5); MetHb 0.3 % (0.0-1.5); O2Hb 95.4 % (94.0-97.0); VENT MODE VENT - CPAP
--- NOTE | 2022-11-21 08:30 | NUR ---
Patient consumed 100% of his breakfast.
[2022-11-21] MEDS: CHLORHEXIDINE GLUCONATE 15 ML MOUTHWASH MM SCH (08:57)
[2022-11-21] MEDS: FLUTICASONE PROP NASAL SPRAY 16 GM BOTTLE NS SCH ×2 (08:57→16:43)
[2022-11-21] MEDS: DICYCLOMINE HCL 20 MG TABLET PO SCH ×4 (08:57→20:12)
[2022-11-21] MEDS: DIVALPROEX SPRINKLE 125 MG CAP.SPRINK PO SCH ×3 (08:58→16:49)
[2022-11-21] MEDS: MIRALAX 17 GM POWD.PACK PO SCH ×2 (08:58→16:49)
[2022-11-21] MEDS: SENNOSIDES 1 TABLET PO SCH (08:58)
[2022-11-21] MEDS: BENZTROPINE MESYLATE 1 MG TABLET PO SCH ×2 (08:58→16:44)
[2022-11-21] MEDS: GABAPENTIN 300 MG CAPSULE PO SCH ×3 (08:58→16:50)
[2022-11-21] MEDS: HYOSCYAMINE SULFATE 0.125 MG TABLET PO SCH ×3 (08:58→16:47)
[2022-11-21] MEDS: PANTOPRAZOLE SODIUM 40 MG TABLET.DR PO SCH ×2 (08:58→20:14)
[2022-11-21] MEDS: OLANZAPINE 2.5 MG TABLET PO SCH ×2 (08:59→16:51)
[2022-11-21] MEDS: buPROPion SR 150 MG TABLET.SA PO SCH ×2 (08:59→16:52)
[2022-11-21] MEDS: ASCORBIC ACID 500 MG TABLET PO SCH (08:59)
[2022-11-21] MEDS: ENOXAPARIN SODIUM 40 MG/0.4 ML DISP.SYRIN SQ SCH (09:01)
[2022-11-21] MEDS: LIDOCAINE 5% PATCH TD SCH (09:02)
[2022-11-21] MEDS: REMEDY ESSENTIAL ZINC PASTE 113 GM TOP SCH ×2 (09:02→20:14)
[2022-11-21] MEDS: THERAHONEY GEL 1.5 OZ TUBE TOP SCH (09:02)
[2022-11-21] MEDS: NEOMY/BACITRAC/POLYMI OINT 28.35 GM TUBE TOP SCH (09:03)
[2022-11-21] MEDS: DULOXETINE 60 MG CAPSULE.DR PO SCH ×2 (09:21→16:45)
[2022-11-21] MEDS: METOPROLOL TARTRATE 25 MG TABLET PO SCH ×2 (10:52→20:12)
[2022-11-21] MEDS: IV NS 1000 ML 1,000 ML IV PRN (12:15)
[2022-11-21 14:13] LABS: *BILIRUBIN,URIN NEGATIVE (NEGATIVE); *BLOOD, URINE NEGATIVE (NEGATIVE); *CLARITY,URINE CLEAR (CLEAR); *COLOR,URINE YELLOW (YELLOW); *KETONES,URINE NEGATIVE (NEGATIVE); *UROBILINOGEN,URINE 0.2 E.U./dl (NORMAL); LEUKOCYTE ESTERASE ,URINE NEGATIVE (NEGATIVE); NITRITE, URINE NEGATIVE (NEGATIVE); UGLUCOSE NEGATIVE (NEGATIVE)
[2022-11-21 14:44] LABS: *CREATININE,URINE 21.2 mg/dL (30-125); *URINE TOTAL PROTEIN RANDOM 27.5 mg/dL (<150/24HR)
--- NOTE | 2022-11-21 19:16 | NUR ---
Patient left in care of Patrick CRISTINA.
[2022-11-21] MEDS: TAMSULOSIN HCL 0.4 MG CAP.SR.24H PO SCH (20:11)
[2022-11-21] MEDS: MUPIROCIN 2% OINT 22 GM TUBE NS SCH (20:15)
[2022-11-21] MEDS: REMEDY ESSENTIAL ZINC PASTE 113 GM TOP PRN (20:25)
[2022-11-22] VITALS (7 sets, daily range): BP systolic 99–152; BP diastolic 56–91
[2022-11-22] MEDS: ACETAMINOPHEN 325 MG TABLET PO PRN (00:17)
[2022-11-22] MEDS: OXYCODONE/APAP 5-325 MG TABLET PO PRN ×3 (02:02→17:30)
[2022-11-22] MEDS: IV NS 1000 ML 1,000 ML IV PRN ×2 (04:23→23:02)
[2022-11-22 04:56] LABS: HEMATOCRIT 26.5 % (36.7-47.1); MEAN CORPUSCULAR VOLUME 92.5 fL (73.0-96.2); PLATELET COUNT (AUTO) 378 K/uL (152-348)
[2022-11-22] MEDS: CEFEPIME HCL 2 G in IV DEXTROSE 5% 100 ML IV SCH ×3 (05:11→21:39)
[2022-11-22 05:22] LABS: CREATININE 2.2 mg/dL (0.6-1.3); MAGNESIUM 2.1 mg/dL (1.8-2.4); PHOSPHOROUS 3.9 mg/dL (2.5-4.9); POTASSIUM 4.5 mmol/L (3.5-5.1)
[2022-11-22] MEDS ORDERED: VANCOMYCIN IV 1,000 MG in IV DEXTROSE 5% 250 ML IV ONE (08:00)
[2022-11-22] MEDS: MIRALAX 17 GM POWD.PACK PO SCH ×2 (08:43→17:30)
[2022-11-22] MEDS: DIVALPROEX SPRINKLE 125 MG CAP.SPRINK PO SCH ×3 (08:44→17:29)
[2022-11-22] MEDS: LIDOCAINE 5% PATCH TD SCH (08:44)
[2022-11-22] MEDS: OLANZAPINE 2.5 MG TABLET PO SCH ×2 (08:44→17:30)
[2022-11-22] MEDS: PANTOPRAZOLE SODIUM 40 MG TABLET.DR PO SCH ×2 (08:45→20:39)
[2022-11-22] MEDS: DICYCLOMINE HCL 20 MG TABLET PO SCH ×4 (08:45→20:36)
[2022-11-22] MEDS: GABAPENTIN 300 MG CAPSULE PO SCH ×3 (08:45→17:30)
[2022-11-22] MEDS: buPROPion SR 150 MG TABLET.SA PO SCH ×2 (08:45→17:30)
[2022-11-22] MEDS: DULOXETINE 60 MG CAPSULE.DR PO SCH ×2 (08:45→17:29)
[2022-11-22] MEDS: ASCORBIC ACID 500 MG TABLET PO SCH (08:45)
[2022-11-22] MEDS: METOPROLOL TARTRATE 25 MG TABLET PO SCH ×2 (08:46→20:39)
[2022-11-22] MEDS: SENNOSIDES 1 TABLET PO SCH (08:46)
[2022-11-22] MEDS: FLUTICASONE PROP NASAL SPRAY 16 GM BOTTLE NS SCH ×2 (08:47→17:29)
[2022-11-22] MEDS: REMEDY ESSENTIAL ZINC PASTE 113 GM TOP SCH ×2 (08:47→20:44)
[2022-11-22] MEDS: THERAHONEY GEL 1.5 OZ TUBE TOP SCH (08:47)
[2022-11-22] MEDS: HYOSCYAMINE SULFATE 0.125 MG TABLET PO SCH ×3 (08:48→17:29)
[2022-11-22] MEDS: BENZTROPINE MESYLATE 1 MG TABLET PO SCH ×2 (08:54→17:29)
[2022-11-22] MEDS: ENOXAPARIN SODIUM 40 MG/0.4 ML DISP.SYRIN SQ SCH (08:58)
[2022-11-22 09:12] LABS: ABG BASE EXCESS -0.7 mmol/L; ABG PCO2 45.5 mmHg (35.0-45.0); ABG PH 7.357 (7.350-7.450); ABG PO2 77.2 mmHg (75.0-100.0); ABG SITE LEFT RADIAL; ABG TOTAL HEMOGLOBIN 10.5 G/dL (13.5-18.0); COHb 0.3 % (0.5-1.5); MetHb 0.1 % (0.0-1.5); O2Hb 94.8 % (94.0-97.0)
[2022-11-22] MEDS: CHLORHEXIDINE GLUCONATE 15 ML MOUTHWASH MM SCH (12:06)
[2022-11-22] MEDS: NEOMY/BACITRAC/POLYMI OINT 28.35 GM TUBE TOP SCH (12:06)
--- NOTE | 2022-11-22 13:00 | NUR ---
Received awake, alert, oriented x 4. On moderate high back rest. Trach to aerosol at 6L with O2 sat of 96%. IVF infusing well. Tele SR.
--- NOTE | 2022-11-22 14:00 | NUR ---
Maritza Hernandez seen and examined patient. Plan for serial debridement right buttocks, wound care done. Incontinence care done. Repositioned comfortably.
--- NOTE | 2022-11-22 18:20 | NUR ---
Reports of leg pain. Percocet po given as ordered. incontinence care done. Repositioned in bed comfortably. Trach to aerosol at 6L with O2 sat of 96%
[2022-11-22] MEDS: TAMSULOSIN HCL 0.4 MG CAP.SR.24H PO SCH (20:36)
--- NOTE | 2022-11-22 23:35 | NUR ---
Pt asleep for long period awake for meds and pm care. Continue on T piece saturating 96%.
[2022-11-23] VITALS: BP 120/66
[2022-11-23 04:00] VITALS: BP 124/78
--- NOTE | 2022-11-23 05:26 | NUR ---
Patient on T-Piece throughout the night. Tolerate. Suctioned PRN for moderate thick beige secretions Pending CXRAY and ABG this AM.
[2022-11-23] MEDS: CEFEPIME HCL 2 G in IV DEXTROSE 5% 100 ML IV SCH ×3 (05:46→21:12)
[2022-11-23 06:36] LABS: HEMATOCRIT 29.3 % (36.7-47.1); MEAN CORPUSCULAR HEMOGLOBIN 29.5 uug (23.8-33.4); MEAN CORPUSCULAR VOLUME 93.1 fL (73.0-96.2); PLATELET COUNT (AUTO) 347 K/uL (152-348)
[2022-11-23 07:20] LABS: CREATININE 2.1 mg/dL (0.6-1.3); MAGNESIUM 2.5 mg/dL (1.8-2.4); PHOSPHOROUS 5.2 mg/dL (2.5-4.9)
[2022-11-23] MEDS: LIDOCAINE 5% PATCH TD SCH (08:05)
[2022-11-23] MEDS: MIRALAX 17 GM POWD.PACK PO SCH ×2 (08:05→16:06)
[2022-11-23] MEDS: ENOXAPARIN SODIUM 40 MG/0.4 ML DISP.SYRIN SQ SCH (08:07)
[2022-11-23 08:09] VITALS: BP 119/82
[2022-11-23] MEDS: ASCORBIC ACID 500 MG TABLET PO SCH (08:09)
[2022-11-23] MEDS: GABAPENTIN 300 MG CAPSULE PO SCH ×3 (08:09→16:05)
[2022-11-23] MEDS: DICYCLOMINE HCL 20 MG TABLET PO SCH ×4 (08:09→20:49)
[2022-11-23] MEDS: DIVALPROEX SPRINKLE 125 MG CAP.SPRINK PO SCH ×3 (08:09→16:05)
[2022-11-23] MEDS: buPROPion SR 150 MG TABLET.SA PO SCH ×2 (08:09→16:07)
[2022-11-23] MEDS: OLANZAPINE 2.5 MG TABLET PO SCH ×2 (08:09→16:05)
[2022-11-23] MEDS: PANTOPRAZOLE SODIUM 40 MG TABLET.DR PO SCH ×2 (08:09→20:49)
[2022-11-23] MEDS: BENZTROPINE MESYLATE 1 MG TABLET PO SCH ×2 (08:10→16:06)
[2022-11-23] MEDS: DULOXETINE 60 MG CAPSULE.DR PO SCH ×2 (08:10→16:06)
[2022-11-23] MEDS: METOPROLOL TARTRATE 25 MG TABLET PO SCH ×2 (08:12→21:09)
[2022-11-23] MEDS: FLUTICASONE PROP NASAL SPRAY 16 GM BOTTLE NS SCH ×2 (08:20→16:06)
[2022-11-23] MEDS: HYOSCYAMINE SULFATE 0.125 MG TABLET PO SCH ×3 (08:20→16:10)
[2022-11-23] MEDS: CHLORHEXIDINE GLUCONATE 15 ML MOUTHWASH MM SCH (08:20)
[2022-11-23] MEDS: REMEDY ESSENTIAL ZINC PASTE 113 GM TOP SCH ×2 (08:21→21:09)
[2022-11-23] MEDS: SENNOSIDES 1 TABLET PO SCH (08:21)
[2022-11-23] MEDS: THERAHONEY GEL 1.5 OZ TUBE TOP SCH (08:33)
[2022-11-23] MEDS: NEOMY/BACITRAC/POLYMI OINT 28.35 GM TUBE TOP SCH (08:33)
[2022-11-23 09:12] LABS: ABG BASE EXCESS 0.2 mmol/L; ABG HCO3 26.4 mmol/L; ABG PH 7.341 (7.350-7.450); ABG PO2 67.4 mmHg (75.0-100.0); ABG SITE RIGHT RADIAL; ABG TOTAL HEMOGLOBIN 11.1 G/dL (13.5-18.0); COHb 0.6 % (0.5-1.5); MetHb 0.1 % (0.0-1.5)
[2022-11-23 11:47] VITALS: BP 141/77
[2022-11-23] MEDS: OXYCODONE/APAP 5-325 MG TABLET PO PRN ×2 (13:22→18:36)
[2022-11-23 15:46] VITALS: BP 152/82
[2022-11-23] MEDS: ACETAMINOPHEN 325 MG TABLET PO PRN (16:05)
[2022-11-23 20:00] VITALS: BP_SYST 137; BP_SYST 154; BP_DIAS 71; BP_DIAS 79
[2022-11-23] MEDS: TAMSULOSIN HCL 0.4 MG CAP.SR.24H PO SCH (20:48)
[2022-11-24] VITALS: BP 133/80
[2022-11-24] MEDS ORDERED: VANCOMYCIN IV 1,000 MG in IV DEXTROSE 5% 250 ML IV ONE ×2
[2022-11-24] MEDS: OXYCODONE/APAP 5-325 MG TABLET PO PRN ×3 (03:13→23:56)
[2022-11-24 04:00] VITALS: BP 126/82
[2022-11-24] MEDS: CEFEPIME HCL 2 G in IV DEXTROSE 5% 100 ML IV SCH ×3 (05:32→22:16)
--- NOTE | 2022-11-24 06:50 | NUR ---
Patient stable. Suctioned prn for thick beigish secretions Midline Dressing Changed.
[2022-11-24 07:24] LABS: MAGNESIUM 2.1 mg/dL (1.8-2.4); PHOSPHOROUS 4.1 mg/dL (2.5-4.9); POTASSIUM 4.9 mmol/L (3.5-5.1)
[2022-11-24 07:39] LABS: HEMATOCRIT 30.2 % (36.7-47.1); MEAN CORPUSCULAR HEMOGLOBIN 29.6 uug (23.8-33.4); MEAN CORPUSCULAR VOLUME 93.7 fL (73.0-96.2); PLATELET COUNT (AUTO) 355 K/uL (152-348)
[2022-11-24 08:00] VITALS: BP 135/75
--- NOTE | 2022-11-24 08:00 | NUR ---
Received patient lying on bed awake, alert, oriented x 4. On mechanical soft diet, positioned patient on moderate high back rest. Trach to aerosol at 6L with O2 sat of 97%. with ongoing IVF NS x 75cc/hr infusing well. Patient continent using urinal at bedside Medications given and tolerated. Needs attended
[2022-11-24] MEDS: CHLORHEXIDINE GLUCONATE 15 ML MOUTHWASH MM SCH (08:48)
[2022-11-24] MEDS: ENOXAPARIN SODIUM 40 MG/0.4 ML DISP.SYRIN SQ SCH (08:49)
[2022-11-24] MEDS: BENZTROPINE MESYLATE 1 MG TABLET PO SCH ×2 (08:50→16:10)
[2022-11-24] MEDS: DICYCLOMINE HCL 20 MG TABLET PO SCH ×4 (08:50→22:16)
[2022-11-24] MEDS: HYOSCYAMINE SULFATE 0.125 MG TABLET PO SCH ×3 (08:50→16:10)
[2022-11-24] MEDS: OLANZAPINE 2.5 MG TABLET PO SCH ×2 (08:50→16:11)
[2022-11-24] MEDS: DULOXETINE 60 MG CAPSULE.DR PO SCH ×2 (08:51→16:10)
[2022-11-24] MEDS: DIVALPROEX SPRINKLE 125 MG CAP.SPRINK PO SCH ×3 (08:51→16:10)
[2022-11-24] MEDS: ASCORBIC ACID 500 MG TABLET PO SCH (08:51)
[2022-11-24] MEDS: GABAPENTIN 300 MG CAPSULE PO SCH ×3 (08:51→16:10)
[2022-11-24] MEDS: SENNOSIDES 1 TABLET PO SCH (08:52)
[2022-11-24] MEDS: PANTOPRAZOLE SODIUM 40 MG TABLET.DR PO SCH ×2 (08:52→22:16)
[2022-11-24] MEDS: MIRALAX 17 GM POWD.PACK PO SCH ×2 (08:52→16:00)
[2022-11-24] MEDS: METOPROLOL TARTRATE 25 MG TABLET PO SCH ×2 (08:52→21:00)
[2022-11-24] MEDS: LIDOCAINE 5% PATCH TD SCH (08:53)
[2022-11-24] MEDS: FLUTICASONE PROP NASAL SPRAY 16 GM BOTTLE NS SCH ×2 (08:53→16:10)
[2022-11-24] MEDS: NEOMY/BACITRAC/POLYMI OINT 28.35 GM TUBE TOP SCH (08:54)
[2022-11-24] MEDS: REMEDY ESSENTIAL ZINC PASTE 113 GM TOP SCH ×2 (08:54→21:00)
[2022-11-24] MEDS: THERAHONEY GEL 1.5 OZ TUBE TOP SCH (08:54)
[2022-11-24] MEDS: buPROPion SR 150 MG TABLET.SA PO SCH ×2 (09:10→16:10)
[2022-11-24 11:24] VITALS: BP 160/80
[2022-11-24] MEDS: IV NS 1000 ML 1,000 ML IV PRN (14:06)
--- NOTE | 2022-11-24 15:37 | NUR ---
Seen patient resting comfortably in bed, denies any pains and discomfort. No changes at this time. Monitored patient from time to time.
[2022-11-24 16:05] VITALS: BP 147/78
--- NOTE | 2022-11-24 16:30 | NUR ---
Patient called complaining of pain on left lower leg with pain score of 7, pain medication given as needed. Observed patient for any reactions. Tolerated well kept rested.
[2022-11-24 20:42] VITALS: BP 114/67
[2022-11-24] MEDS: TAMSULOSIN HCL 0.4 MG CAP.SR.24H PO SCH (22:16)
[2022-11-25 00:46] VITALS: BP 141/78
[2022-11-25 04:00] VITALS: BP 131/81
[2022-11-25] MEDS: IV NS 1000 ML 1,000 ML IV PRN (04:31)
[2022-11-25] MEDS: OXYCODONE/APAP 5-325 MG TABLET PO PRN ×3 (05:34→21:30)
[2022-11-25] MEDS: CEFEPIME HCL 2 G in IV DEXTROSE 5% 100 ML IV SCH ×3 (05:34→22:00)
--- NOTE | 2022-11-25 07:26 | NUR ---
REPORT GIVEN TO JONNIE OSWALD
[2022-11-25 07:34] VITALS: BP 146/74
[2022-11-25 07:47] LABS: POTASSIUM 4.9 mmol/L (3.5-5.1)
--- NOTE | 2022-11-25 08:00 | NUR ---
RESTING COMFORTABLY IN BED, NO SS OF PAIN OR DISTRESS SATURATING 99% ON 6L VIA P-VALVE. ABLE TO VERBALIZE NEEDS WELL. SR ON MONITOR
[2022-11-25] MEDS: DICYCLOMINE HCL 20 MG TABLET PO SCH ×4 (08:39→21:00)
[2022-11-25] MEDS: PANTOPRAZOLE SODIUM 40 MG TABLET.DR PO SCH ×2 (08:40→21:00)
[2022-11-25] MEDS: GABAPENTIN 300 MG CAPSULE PO SCH ×3 (08:40→16:28)
[2022-11-25] MEDS: OLANZAPINE 2.5 MG TABLET PO SCH ×2 (08:40→16:34)
[2022-11-25] MEDS: METOPROLOL TARTRATE 25 MG TABLET PO SCH ×2 (08:40→21:00)
[2022-11-25] MEDS: buPROPion SR 150 MG TABLET.SA PO SCH ×2 (08:40→16:28)
[2022-11-25] MEDS: DIVALPROEX SPRINKLE 125 MG CAP.SPRINK PO SCH ×3 (08:40→16:28)
[2022-11-25] MEDS: DULOXETINE 60 MG CAPSULE.DR PO SCH ×2 (08:40→16:28)
[2022-11-25] MEDS: ASCORBIC ACID 500 MG TABLET PO SCH (08:41)
[2022-11-25] MEDS: SENNOSIDES 1 TABLET PO SCH (08:41)
[2022-11-25] MEDS: BENZTROPINE MESYLATE 1 MG TABLET PO SCH ×2 (08:41→16:28)
[2022-11-25] MEDS: MIRALAX 17 GM POWD.PACK PO SCH ×2 (08:41→16:29)
[2022-11-25] MEDS: FLUTICASONE PROP NASAL SPRAY 16 GM BOTTLE NS SCH ×2 (08:42→16:27)
[2022-11-25] MEDS: CHLORHEXIDINE GLUCONATE 15 ML MOUTHWASH MM SCH (08:42)
[2022-11-25] MEDS: REMEDY ESSENTIAL ZINC PASTE 113 GM TOP SCH ×2 (08:43→21:00)
[2022-11-25] MEDS: LIDOCAINE 5% PATCH TD SCH (08:43)
[2022-11-25] MEDS: NEOMY/BACITRAC/POLYMI OINT 28.35 GM TUBE TOP SCH (08:44)
[2022-11-25] MEDS: THERAHONEY GEL 1.5 OZ TUBE TOP SCH (08:44)
[2022-11-25] MEDS: ENOXAPARIN SODIUM 40 MG/0.4 ML DISP.SYRIN SQ SCH (08:45)
[2022-11-25] MEDS: HYOSCYAMINE SULFATE 0.125 MG TABLET PO SCH ×3 (08:49→16:28)
[2022-11-25] MEDS ORDERED: VANCOMYCIN IV 1,000 MG in IV DEXTROSE 5% 250 ML IV ONE (10:00)
[2022-11-25 12:00] VITALS: BP 146/85
--- NOTE | 2022-11-25 12:00 | NUR ---
NO ACUTE CHANGE FROM MORNING ASSESSMENT
--- NOTE | 2022-11-25 14:11 | NUR ---
SEEN BY Rui RICARDO DISCUSSED PLAN OF CARE/DC TO SNF. STATUS CHANGED TO TELE
[2022-11-25 15:52] VITALS: BP 147/74
--- NOTE | 2022-11-25 18:29 | NUR ---
DISCHARGE PLANNING IN AM TO SNF
[2022-11-25 20:17] VITALS: BP 134/74
[2022-11-25] MEDS: TAMSULOSIN HCL 0.4 MG CAP.SR.24H PO SCH (21:00)
[2022-11-26 00:07] VITALS: BP 119/69
[2022-11-26 04:00] VITALS: BP 114/69
[2022-11-26] MEDS: CEFEPIME HCL 2 G in IV DEXTROSE 5% 100 ML IV SCH ×3 (06:12→22:13)
--- NOTE | 2022-11-26 06:44 | NUR ---
Patient is stable, slept the all shift, no sign of respiratory distress observed. Scheduled meds as well as PRN have been administered. Medications well tolerated by patient. He is still resting in his room. Will continue to monitor for safety.
[2022-11-26] MEDS: OXYCODONE/APAP 5-325 MG TABLET PO PRN ×3 (07:02→20:20)
[2022-11-26 07:38] LABS: HEMATOCRIT 29.2 % (36.7-47.1); MEAN CORPUSCULAR HEMOGLOBIN 29.7 uug (23.8-33.4); MEAN CORPUSCULAR VOLUME 92.6 fL (73.0-96.2); PLATELET COUNT (AUTO) 309 K/uL (152-348)
[2022-11-26 07:44] LABS: CREATININE 1.9 mg/dL (0.6-1.3); PHOSPHOROUS 4.3 mg/dL (2.5-4.9); POTASSIUM 5.1 mmol/L (3.5-5.1)
[2022-11-26 07:53] LABS: ABG BASE EXCESS 1.4 mmol/L; ABG HCO3 28.2 mmol/L; ABG PCO2 54.8 mmHg (35.0-45.0); ABG PO2 66.4 mmHg (75.0-100.0); ABG SITE LEFT BRACHIAL; ABG TOTAL HEMOGLOBIN 11.7 G/dL (13.5-18.0); COHb 1.1 % (0.5-1.5); MetHb 0.3 % (0.0-1.5); O2Hb 91.9 % (94.0-97.0)
--- NOTE | 2022-11-26 08:00 | NUR ---
AWAKE ALERT AND ORIENTED X3 NO SS OF ACUTE PAIN OR RESPIRATORY DISTRESS. ON 6L VIA P-VALVE SATURATING 100%. CONTINUE WITH HHN BY RT, TELE ORDEREDD
[2022-11-26] MEDS: MIRALAX 17 GM POWD.PACK PO SCH ×2 (09:00→16:38)
[2022-11-26] MEDS ORDERED: VANCOMYCIN IV 1,250 MG in IV DEXTROSE 5% 250 ML IV ONE (09:00)
[2022-11-26] MEDS: SENNOSIDES 1 TABLET PO SCH (09:00)
[2022-11-26] MEDS: HYOSCYAMINE SULFATE 0.125 MG TABLET PO SCH ×3 (09:20→16:37)
[2022-11-26] MEDS: CHLORHEXIDINE GLUCONATE 15 ML MOUTHWASH MM SCH (09:20)
[2022-11-26] MEDS: LIDOCAINE 5% PATCH TD SCH (09:20)
[2022-11-26] MEDS: FLUTICASONE PROP NASAL SPRAY 16 GM BOTTLE NS SCH ×2 (09:21→16:38)
[2022-11-26] MEDS: BENZTROPINE MESYLATE 1 MG TABLET PO SCH ×2 (09:21→16:37)
[2022-11-26] MEDS: OLANZAPINE 2.5 MG TABLET PO SCH ×2 (09:21→16:37)
[2022-11-26] MEDS: DULOXETINE 60 MG CAPSULE.DR PO SCH ×2 (09:21→16:37)
[2022-11-26] MEDS: ASCORBIC ACID 500 MG TABLET PO SCH (09:21)
[2022-11-26] MEDS: buPROPion SR 150 MG TABLET.SA PO SCH ×2 (09:21→16:37)
[2022-11-26] MEDS: DIVALPROEX SPRINKLE 125 MG CAP.SPRINK PO SCH ×3 (09:22→16:37)
[2022-11-26] MEDS: PANTOPRAZOLE SODIUM 40 MG TABLET.DR PO SCH ×2 (09:22→20:20)
[2022-11-26] MEDS: GABAPENTIN 300 MG CAPSULE PO SCH ×3 (09:22→16:37)
[2022-11-26] MEDS: DICYCLOMINE HCL 20 MG TABLET PO SCH ×4 (09:22→20:20)
[2022-11-26] MEDS: METOPROLOL TARTRATE 25 MG TABLET PO SCH ×2 (09:22→20:28)
[2022-11-26] MEDS: ENOXAPARIN SODIUM 40 MG/0.4 ML DISP.SYRIN SQ SCH (09:23)
[2022-11-26] MEDS: THERAHONEY GEL 1.5 OZ TUBE TOP SCH (09:24)
[2022-11-26] MEDS: REMEDY ESSENTIAL ZINC PASTE 113 GM TOP SCH ×2 (09:24→21:00)
[2022-11-26] MEDS: NEOMY/BACITRAC/POLYMI OINT 28.35 GM TUBE TOP SCH (09:25)
--- NOTE | 2022-11-26 11:30 | NUR ---
SEEN BY HOSPITALIST AND DR CATALAN FOR FOLLOW-UP, HOSPITALIST DISCUSSED PLAN OF CARE. AWAITING PLACEMENT AVAILABILITY
[2022-11-26 11:48] VITALS: BP 119/68
--- NOTE | 2022-11-26 14:30 | NUR ---
RESTING COMFORTABLY IN BED AWAITING BED AVAILABILITY/PLACEMENT
[2022-11-26 16:00] VITALS: BP 114/56
[2022-11-26] MEDS: IV NS 1000 ML 1,000 ML IV PRN (17:01)
--- NOTE | 2022-11-26 19:30 | NUR ---
Received Pt from day shift. Pt is A&Ox4 and cooperative. Pt's trach is intact. LUKE midline intact. NS runing @ 75mL/hr. Safet measures in place. Will continue to monitor.
[2022-11-26] MEDS: TAMSULOSIN HCL 0.4 MG CAP.SR.24H PO SCH (20:20)
[2022-11-26 21:27] VITALS: BP 132/78
[2022-11-27] VITALS: BP 136/72
[2022-11-27] MEDS: OXYCODONE/APAP 5-325 MG TABLET PO PRN ×4 (04:19→21:15)
[2022-11-27] MEDS: CEFEPIME HCL 2 G in IV DEXTROSE 5% 100 ML IV SCH (05:22)
[2022-11-27 05:46] VITALS: BP 132/79
--- NOTE | 2022-11-27 06:39 | NUR ---
End of shift Note: Received Pt from day shift. Pt is A&Ox4 and cooperative. Pt's trach is intact. LUKE midline intact. NS runing @ 75mL/hr. Safety measures in place. Will continue to monitor.
[2022-11-27 06:51] LABS: HEMATOCRIT 31.3 % (36.7-47.1); MEAN CORPUSCULAR HEMOGLOBIN 29.4 uug (23.8-33.4); MEAN CORPUSCULAR VOLUME 93.1 fL (73.0-96.2); PLATELET COUNT (AUTO) 310 K/uL (152-348)
[2022-11-27 07:11] LABS: CREATININE 1.9 mg/dL (0.6-1.3); MAGNESIUM 1.9 mg/dL (1.8-2.4); PHOSPHOROUS 3.8 mg/dL (2.5-4.9); POTASSIUM 4.7 mmol/L (3.5-5.1)
[2022-11-27] MEDS: LIDOCAINE 5% PATCH TD SCH (09:04)
[2022-11-27] MEDS: SENNOSIDES 1 TABLET PO SCH (09:04)
[2022-11-27] MEDS: MIRALAX 17 GM POWD.PACK PO SCH ×2 (09:04→16:40)
[2022-11-27] MEDS: GABAPENTIN 300 MG CAPSULE PO SCH ×3 (09:05→16:39)
[2022-11-27] MEDS: OLANZAPINE 2.5 MG TABLET PO SCH ×2 (09:05→16:39)
[2022-11-27] MEDS: buPROPion SR 150 MG TABLET.SA PO SCH ×2 (09:05→16:39)
[2022-11-27] MEDS: DIVALPROEX SPRINKLE 125 MG CAP.SPRINK PO SCH ×3 (09:05→16:46)
[2022-11-27] MEDS: ASCORBIC ACID 500 MG TABLET PO SCH (09:06)
[2022-11-27] MEDS: PANTOPRAZOLE SODIUM 40 MG TABLET.DR PO SCH ×2 (09:06→21:16)
[2022-11-27] MEDS: DULOXETINE 60 MG CAPSULE.DR PO SCH ×2 (09:06→16:39)
[2022-11-27] MEDS: DICYCLOMINE HCL 20 MG TABLET PO SCH ×4 (09:06→21:15)
[2022-11-27] MEDS: FLUTICASONE PROP NASAL SPRAY 16 GM BOTTLE NS SCH ×2 (09:06→16:39)
[2022-11-27] MEDS: BENZTROPINE MESYLATE 1 MG TABLET PO SCH ×2 (09:06→16:46)
[2022-11-27] MEDS: CHLORHEXIDINE GLUCONATE 15 ML MOUTHWASH MM SCH (09:07)
[2022-11-27] MEDS: ENOXAPARIN SODIUM 40 MG/0.4 ML DISP.SYRIN SQ SCH (09:08)
[2022-11-27] MEDS: NEOMY/BACITRAC/POLYMI OINT 28.35 GM TUBE TOP SCH (09:09)
[2022-11-27] MEDS: THERAHONEY GEL 1.5 OZ TUBE TOP SCH (09:09)
[2022-11-27] MEDS: REMEDY ESSENTIAL ZINC PASTE 113 GM TOP SCH ×2 (09:09→21:17)
[2022-11-27] MEDS: REMEDY ESSENTIAL ZINC PASTE 113 GM TOP PRN (09:10)
[2022-11-27] MEDS: METOPROLOL TARTRATE 25 MG TABLET PO SCH ×2 (09:13→21:16)
[2022-11-27] MEDS: HYOSCYAMINE SULFATE 0.125 MG TABLET PO SCH ×3 (09:13→16:46)
[2022-11-27 11:59] VITALS: BP 108/65
[2022-11-27] MEDS: IV NS 1000 ML 1,000 ML IV PRN (13:13)
[2022-11-27 15:59] VITALS: BP 115/58
--- NOTE | 2022-11-27 18:21 | NUR ---
NO SIGNS OF DISTRESS, AWAITING PLACEMENT SR ON MONITOR
[2022-11-27 20:00] VITALS: BP 121/56
[2022-11-27] MEDS: TAMSULOSIN HCL 0.4 MG CAP.SR.24H PO SCH (21:15)
[2022-11-28] MEDS: OXYCODONE/APAP 5-325 MG TABLET PO PRN ×3 (01:34→16:53)
[2022-11-28 04:00] VITALS: BP 98/48
[2022-11-28 07:23] LABS: HEMATOCRIT 28.3 % (36.7-47.1); MEAN CORPUSCULAR HEMOGLOBIN 29.7 uug (23.8-33.4); MEAN CORPUSCULAR VOLUME 92.3 fL (73.0-96.2); PLATELET COUNT (AUTO) 280 K/uL (152-348)
--- NOTE | 2022-11-28 08:00 | NUR ---
AWAKE ALERT AND ABLE TO PARTICIPATE WITH NEED, COOPERATIVE WITH CARE, NO SS OF DISTRESS AND ACUTE PAIN. ON PERCOCET FOR PRN MEDS. C/O ANKLE PAIN TEMPORARY RELIEVED WITH PERCOCET. RREQUIRES FREQUENT TRACHEAL SUCTIONING. TOLERATING P-PERLA DURING THE DAY SATURATING 99%. SR ON MONITOR.
[2022-11-28 08:03] LABS: BILIRUBIN,TOTAL 0.3 mg/dL (0.2-1.0); CREATININE 1.8 mg/dL (0.6-1.3); MAGNESIUM 1.8 mg/dL (1.8-2.4); PHOSPHOROUS 2.9 mg/dL (2.5-4.9); POTASSIUM 4.7 mmol/L (3.5-5.1); TOTAL PROTEIN, SERUM 7.4 g/dL (6.4-8.2)
[2022-11-28 08:07] LABS: THYROID STIMULATING HORMONE 4.271 mIU/mL (0.358-3.740)
[2022-11-28] MEDS: LIDOCAINE 5% PATCH TD SCH (09:22)
[2022-11-28] MEDS: buPROPion SR 150 MG TABLET.SA PO SCH ×2 (09:22→16:52)
[2022-11-28] MEDS: DICYCLOMINE HCL 20 MG TABLET PO SCH ×4 (09:22→20:19)
[2022-11-28] MEDS: BENZTROPINE MESYLATE 1 MG TABLET PO SCH ×2 (09:22→16:53)
[2022-11-28] MEDS: MIRALAX 17 GM POWD.PACK PO SCH ×2 (09:22→16:54)
[2022-11-28] MEDS: PANTOPRAZOLE SODIUM 40 MG TABLET.DR PO SCH ×2 (09:23→20:19)
[2022-11-28] MEDS: DULOXETINE 60 MG CAPSULE.DR PO SCH ×2 (09:23→16:52)
[2022-11-28] MEDS: DIVALPROEX SPRINKLE 125 MG CAP.SPRINK PO SCH ×3 (09:23→16:53)
[2022-11-28] MEDS: ASCORBIC ACID 500 MG TABLET PO SCH (09:23)
[2022-11-28] MEDS: GABAPENTIN 300 MG CAPSULE PO SCH ×3 (09:23→16:53)
[2022-11-28] MEDS: SENNOSIDES 1 TABLET PO SCH (09:23)
[2022-11-28] MEDS: NEOMY/BACITRAC/POLYMI OINT 28.35 GM TUBE TOP SCH (09:24)
[2022-11-28] MEDS: REMEDY ESSENTIAL ZINC PASTE 113 GM TOP SCH ×2 (09:25→20:26)
[2022-11-28] MEDS: THERAHONEY GEL 1.5 OZ TUBE TOP SCH (09:25)
[2022-11-28] MEDS: ENOXAPARIN SODIUM 40 MG/0.4 ML DISP.SYRIN SQ SCH (09:27)
[2022-11-28] MEDS: FLUTICASONE PROP NASAL SPRAY 16 GM BOTTLE NS SCH ×2 (09:32→16:54)
[2022-11-28] MEDS: HYOSCYAMINE SULFATE 0.125 MG TABLET PO SCH ×3 (09:32→16:53)
[2022-11-28] MEDS: CHLORHEXIDINE GLUCONATE 15 ML MOUTHWASH MM SCH (09:33)
[2022-11-28] MEDS: OLANZAPINE 2.5 MG TABLET PO SCH ×2 (09:39→16:52)
[2022-11-28] MEDS: METOPROLOL TARTRATE 25 MG TABLET PO SCH ×2 (10:12→20:26)
--- NOTE | 2022-11-28 11:45 | NUR ---
PER DR CATALAN CONTINUE WITH NOCTURNAL MECH VENT TOLERATED.
[2022-11-28 12:00] VITALS: BP 145/83
--- NOTE | 2022-11-28 12:00 | NUR ---
NO ACUTE CHANGE FROM MORNING ASSESSMENT. SEEN BY DR CATALAN SEE NOTES
[2022-11-28 16:00] VITALS: BP 129/69
--- NOTE | 2022-11-28 18:18 | NUR ---
DISCHARGE PLAN IN PLACE, SEE HOUSEHOLD APPLIANCE INSTALLER NOTES
--- NOTE | 2022-11-28 19:30 | NUR ---
Received patient lying in bed. AAOx4. In no acute distress. Denies any pain or SOB at this time. NSR on tele with HR of 81/min. Trach intact. RT to place patient on vent during the night. Midline on LUKE intact and patent. Needs assessed and attended to. Safety measure initiated and call light within reached.
[2022-11-28 20:00] VITALS: BP 117/71
[2022-11-28] MEDS: TAMSULOSIN HCL 0.4 MG CAP.SR.24H PO SCH (20:19)
[2022-11-29] VITALS: BP 134/70
[2022-11-29] MEDS: OXYCODONE/APAP 5-325 MG TABLET PO PRN ×4 (00:24→18:35)
[2022-11-29 03:47] VITALS: BP 108/58
--- NOTE | 2022-11-29 05:05 | NUR ---
On Mechanical ventilator during the night. No acute distress. Percocet 1 tab PO given for complain of pain and effective. NSR on tele with HR of 70/min. Needs attended to and met. Safety measure maintained and call light within reached.
[2022-11-29 07:38] LABS: HEMATOCRIT 30.1 % (36.7-47.1); MEAN CORPUSCULAR HEMOGLOBIN 29.7 uug (23.8-33.4); MEAN CORPUSCULAR VOLUME 92.1 fL (73.0-96.2); PLATELET COUNT (AUTO) 303 K/uL (152-348)
[2022-11-29 07:47] LABS: CREATININE 1.7 mg/dL (0.6-1.3); MAGNESIUM 1.7 mg/dL (1.8-2.4); PHOSPHOROUS 2.9 mg/dL (2.5-4.9); POTASSIUM 4.6 mmol/L (3.5-5.1)
[2022-11-29 07:54] LABS: THYROID STIMULATING HORMONE 5.619 mIU/mL (0.358-3.740)
[2022-11-29] MEDS: NEOMY/BACITRAC/POLYMI OINT 28.35 GM TUBE TOP SCH (09:00)
[2022-11-29] MEDS: SENNOSIDES 1 TABLET PO SCH (09:00)
[2022-11-29] MEDS: THERAHONEY GEL 1.5 OZ TUBE TOP SCH (09:00)
[2022-11-29] MEDS: ASCORBIC ACID 500 MG TABLET PO SCH (09:00)
[2022-11-29] MEDS: REMEDY ESSENTIAL ZINC PASTE 113 GM TOP SCH ×2 (09:00→20:27)
[2022-11-29] MEDS: LIDOCAINE 5% PATCH TD SCH (10:27)
[2022-11-29] MEDS: MIRALAX 17 GM POWD.PACK PO SCH ×2 (10:28→17:29)
[2022-11-29] MEDS: BENZTROPINE MESYLATE 1 MG TABLET PO SCH ×2 (10:28→17:18)
[2022-11-29] MEDS: DIVALPROEX SPRINKLE 125 MG CAP.SPRINK PO SCH ×3 (10:28→17:16)
[2022-11-29] MEDS: DULOXETINE 60 MG CAPSULE.DR PO SCH ×2 (10:28→17:16)
[2022-11-29] MEDS: FLUTICASONE PROP NASAL SPRAY 16 GM BOTTLE NS SCH ×2 (10:28→17:17)
[2022-11-29] MEDS: PANTOPRAZOLE SODIUM 40 MG TABLET.DR PO SCH ×2 (10:29→20:12)
[2022-11-29] MEDS: buPROPion SR 150 MG TABLET.SA PO SCH ×2 (10:29→17:16)
[2022-11-29] MEDS: GABAPENTIN 300 MG CAPSULE PO SCH ×3 (10:29→17:29)
[2022-11-29] MEDS: OLANZAPINE 2.5 MG TABLET PO SCH ×2 (10:29→17:28)
[2022-11-29] MEDS: HYOSCYAMINE SULFATE 0.125 MG TABLET PO SCH ×3 (10:30→17:29)
[2022-11-29] MEDS: DICYCLOMINE HCL 20 MG TABLET PO SCH ×4 (10:30→20:12)
[2022-11-29] MEDS: CHLORHEXIDINE GLUCONATE 15 ML MOUTHWASH MM SCH (10:30)
[2022-11-29] MEDS: ENOXAPARIN SODIUM 40 MG/0.4 ML DISP.SYRIN SQ SCH (10:33)
[2022-11-29] MEDS: METOPROLOL TARTRATE 25 MG TABLET PO SCH ×2 (10:43→20:17)
[2022-11-29 11:28] VITALS: BP 126/61
[2022-11-29] MEDS ORDERED: MAGNESIUM SULFATE/D5W 100 ML IV SCH (12:00)
[2022-11-29 16:00] VITALS: BP 130/60
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
[2022-11-29 20:00] VITALS: BP 125/74
--- NOTE | 2022-11-29 20:00 | NUR ---
Received patient lying in bed. AAOx4. In no apparent distress. No complain of pain or discomfort at this time. NSR on tele with HR of 68/min. Midline on LUKE intact and patent. RT to place patient on vent at bedtime with FiO2 of 30%. Needs assessed and attended to. Safety measure initiated and call light within reached.
[2022-11-29] MEDS: TAMSULOSIN HCL 0.4 MG CAP.SR.24H PO SCH (20:12)
[2022-11-29] MEDS: MELATONIN 3 MG TABLET PO PRN (20:12)
[2022-11-30] VITALS: BP 121/70
[2022-11-30] MEDS: OXYCODONE/APAP 5-325 MG TABLET PO PRN ×3 (02:04→14:58)
[2022-11-30 04:19] VITALS: BP 107/52
--- NOTE | 2022-11-30 05:25 | NUR ---
On Mechanical ventilator during the night. In no acute distress. Percocet 1 tab PO given for complain of pain and effective. NSR on tele with HR of 73/min. Needs attended to and met. Safety measure maintained and call light within reached.
[2022-11-30] MEDS: LEVOTHYROXINE SODIUM 25 MCG TABLET PO SCH (06:13)
[2022-11-30 07:25] LABS: CREATININE 1.8 mg/dL (0.6-1.3); POTASSIUM 4.6 mmol/L (3.5-5.1)
[2022-11-30] MEDS: buPROPion SR 150 MG TABLET.SA PO SCH ×2 (08:38→16:44)
[2022-11-30] MEDS: BENZTROPINE MESYLATE 1 MG TABLET PO SCH ×2 (08:38→16:45)
[2022-11-30] MEDS: ASCORBIC ACID 500 MG TABLET PO SCH (08:38)
[2022-11-30] MEDS: DULOXETINE 60 MG CAPSULE.DR PO SCH ×2 (08:38→16:44)
[2022-11-30] MEDS: PANTOPRAZOLE SODIUM 40 MG TABLET.DR PO SCH ×2 (08:42→20:45)
[2022-11-30] MEDS: METOPROLOL TARTRATE 25 MG TABLET PO SCH ×2 (08:42→20:45)
[2022-11-30] MEDS: SENNOSIDES 1 TABLET PO SCH (08:42)
[2022-11-30] MEDS: DICYCLOMINE HCL 20 MG TABLET PO SCH ×4 (08:42→20:45)
[2022-11-30] MEDS: OLANZAPINE 2.5 MG TABLET PO SCH ×2 (08:42→16:45)
[2022-11-30] MEDS: GABAPENTIN 300 MG CAPSULE PO SCH ×3 (08:43→16:44)
[2022-11-30] MEDS: HYOSCYAMINE SULFATE 0.125 MG TABLET PO SCH ×3 (08:43→16:45)
[2022-11-30] MEDS: FLUTICASONE PROP NASAL SPRAY 16 GM BOTTLE NS SCH ×2 (08:43→16:45)
[2022-11-30] MEDS: MIRALAX 17 GM POWD.PACK PO SCH ×2 (08:43→16:44)
[2022-11-30] MEDS: LIDOCAINE 5% PATCH TD SCH (08:43)
[2022-11-30] MEDS: CHLORHEXIDINE GLUCONATE 15 ML MOUTHWASH MM SCH (08:43)
[2022-11-30] MEDS: ENOXAPARIN SODIUM 40 MG/0.4 ML DISP.SYRIN SQ SCH (08:44)
[2022-11-30] MEDS: REMEDY ESSENTIAL ZINC PASTE 113 GM TOP SCH ×2 (08:45→20:45)
[2022-11-30] MEDS: DIVALPROEX SPRINKLE 125 MG CAP.SPRINK PO SCH ×3 (08:55→16:45)
[2022-11-30 11:06] VITALS: BP 137/72
[2022-11-30] MEDS: NEOMY/BACITRAC/POLYMI OINT 28.35 GM TUBE TOP SCH (12:18)
[2022-11-30] MEDS: THERAHONEY GEL 1.5 OZ TUBE TOP SCH (12:18)
--- NOTE | 2022-11-30 14:16 | NUR ---
Clinical Social Work Note: SW with family independence case managerTrace, financial and admitting staff discussed discharge plan with the patients father, Zacarias Bazzi and family independence case managerTrace presented the list of subacute facilities that he had submitted the patient to and was declined at. Patient has been accepted to [facility] subacute [address] [place] [address] and patients father, Zacarias Bazzi, refused the placement to [facility]. Patient's father is aware that the admitting staff is requesting payment for services rendered as discharge order are in place and DRG days have been exhausted.
[2022-11-30 15:11] VITALS: BP 121/59
--- NOTE | 2022-11-30 19:30 | NUR ---
Received patient lying in bed. AAOx4. In no apparent distress. No complain of pain or discomfort at this time. NSR on tele with HR of 95/min. Midline on LUKE intact and patent. Patient eating food brought in by patient family. RT to place patient on vent at bedtime with FiO2 of 30%. Needs assessed and attended to. Safety measure initiated and call light within reached.
[2022-11-30 20:40] VITALS: BP 143/65
[2022-11-30] MEDS: MELATONIN 3 MG TABLET PO PRN (20:45)
[2022-11-30] MEDS: TAMSULOSIN HCL 0.4 MG CAP.SR.24H PO SCH (20:45)
[2022-11-30 23:55] VITALS: BP 114/54
[2022-12-01] MEDS: OXYCODONE/APAP 5-325 MG TABLET PO PRN ×4 (00:57→23:42)
[2022-12-01 04:05] VITALS: BP 139/76
--- NOTE | 2022-12-01 05:17 | NUR ---
Patient requesting cough medication. informed PERSONAL FINANCIAL REPRESENTATIVE Keh and obtain order for Robitussin 10cc PO every 6 hours PRN. Order noted and will carry out.
[2022-12-01] MEDS ORDERED: GUAIFENESIN/DEXTROMETHORPHAN 5 ML UDC PO PRN (05:30)
--- NOTE | 2022-12-01 05:49 | NUR ---
Suction secretions PRN. NSR on tele with HR 81/min. Needs attended to and met. Safety measure maintained and call light within reached.
[2022-12-01] MEDS: LEVOTHYROXINE SODIUM 25 MCG TABLET PO SCH (06:33)
--- NOTE | 2022-12-01 07:30 | NUR ---
Awake, alert, oriented x 4. Trach to 6L. Comfortable at this time. Tele SR
[2022-12-01] MEDS: BENZTROPINE MESYLATE 1 MG TABLET PO SCH ×2 (09:21→17:16)
[2022-12-01] MEDS: DICYCLOMINE HCL 20 MG TABLET PO SCH ×4 (09:21→21:45)
[2022-12-01] MEDS: buPROPion SR 150 MG TABLET.SA PO SCH ×2 (09:22→17:16)
[2022-12-01] MEDS: MIRALAX 17 GM POWD.PACK PO SCH ×2 (09:22→17:16)
[2022-12-01] MEDS: DULOXETINE 60 MG CAPSULE.DR PO SCH ×2 (09:22→17:16)
[2022-12-01] MEDS: DIVALPROEX SPRINKLE 125 MG CAP.SPRINK PO SCH ×3 (09:22→17:16)
[2022-12-01] MEDS: ASCORBIC ACID 500 MG TABLET PO SCH (09:22)
[2022-12-01] MEDS: SENNOSIDES 1 TABLET PO SCH (09:22)
[2022-12-01] MEDS: PANTOPRAZOLE SODIUM 40 MG TABLET.DR PO SCH ×2 (09:22→21:45)
[2022-12-01] MEDS: GABAPENTIN 300 MG CAPSULE PO SCH ×3 (09:22→17:16)
[2022-12-01] MEDS: ENOXAPARIN SODIUM 40 MG/0.4 ML DISP.SYRIN SQ SCH (09:23)
[2022-12-01] MEDS: LIDOCAINE 5% PATCH TD SCH (09:23)
[2022-12-01] MEDS: OLANZAPINE 2.5 MG TABLET PO SCH ×2 (09:23→17:17)
[2022-12-01] MEDS: FLUTICASONE PROP NASAL SPRAY 16 GM BOTTLE NS SCH ×2 (09:25→17:16)
[2022-12-01] MEDS: CHLORHEXIDINE GLUCONATE 15 ML MOUTHWASH MM SCH (09:25)
[2022-12-01] MEDS: HYOSCYAMINE SULFATE 0.125 MG TABLET PO SCH ×3 (09:25→17:16)
[2022-12-01] MEDS: METOPROLOL TARTRATE 25 MG TABLET PO SCH ×2 (09:48→21:44)
[2022-12-01] MEDS: REMEDY ESSENTIAL ZINC PASTE 113 GM TOP SCH ×2 (09:48→21:00)
[2022-12-01] MEDS: NEOMY/BACITRAC/POLYMI OINT 28.35 GM TUBE TOP SCH (09:49)
[2022-12-01] MEDS: THERAHONEY GEL 1.5 OZ TUBE TOP SCH (09:49)
--- NOTE | 2022-12-01 11:30 | NUR ---
Father at bedside, concerned about DC plan, refused [facility]. KATIE Macario informed. Hospitalist Darshan at bedside, spoke to father.
[2022-12-01 12:09] VITALS: BP 124/74
--- NOTE | 2022-12-01 15:50 | NUR ---
Reports of pain LE. Percocet po given. Wound care done as ordered. Repositioned comfortably.
[2022-12-01 16:32] VITALS: BP 117/64
--- NOTE | 2022-12-01 18:26 | NUR ---
On moderate high back rest. Trach to T piece at 6L with O2 sat of 97%.
[2022-12-01 20:00] VITALS: BP 114/64
[2022-12-01] MEDS: TAMSULOSIN HCL 0.4 MG CAP.SR.24H PO SCH (21:45)
[2022-12-02] VITALS: BP 126/68
[2022-12-02 04:00] VITALS: BP 94/52
[2022-12-02] MEDS: LEVOTHYROXINE SODIUM 25 MCG TABLET PO SCH (06:02)
[2022-12-02] MEDS: OXYCODONE/APAP 5-325 MG TABLET PO PRN ×5 (06:05→23:07)
[2022-12-02 07:11] VITALS: BP 94/52
--- NOTE | 2022-12-02 08:15 | NUR ---
patient awake alert and able to make needs known, forgetful. on o2 via t-piece at 6l saturating 95%. still c/o on and off bilateral ankle pain continue with pain management. awaiting placement
[2022-12-02] MEDS: FLUTICASONE PROP NASAL SPRAY 16 GM BOTTLE NS SCH ×2 (09:24→16:21)
[2022-12-02] MEDS: LIDOCAINE 5% PATCH TD SCH (09:24)
[2022-12-02] MEDS: CHLORHEXIDINE GLUCONATE 15 ML MOUTHWASH MM SCH (09:25)
[2022-12-02] MEDS: MIRALAX 17 GM POWD.PACK PO SCH ×2 (09:25→16:09)
[2022-12-02] MEDS: HYOSCYAMINE SULFATE 0.125 MG TABLET PO SCH ×3 (09:25→16:11)
[2022-12-02] MEDS: SENNOSIDES 1 TABLET PO SCH (09:26)
[2022-12-02] MEDS: OLANZAPINE 2.5 MG TABLET PO SCH ×2 (09:26→16:10)
[2022-12-02] MEDS: GABAPENTIN 300 MG CAPSULE PO SCH ×3 (09:26→16:10)
[2022-12-02] MEDS: PANTOPRAZOLE SODIUM 40 MG TABLET.DR PO SCH ×2 (09:26→21:08)
[2022-12-02] MEDS: DULOXETINE 60 MG CAPSULE.DR PO SCH ×2 (09:26→16:10)
[2022-12-02] MEDS: METOPROLOL TARTRATE 25 MG TABLET PO SCH ×2 (09:26→21:18)
[2022-12-02] MEDS: BENZTROPINE MESYLATE 1 MG TABLET PO SCH ×2 (09:26→16:10)
[2022-12-02] MEDS: buPROPion SR 150 MG TABLET.SA PO SCH ×2 (09:26→16:10)
[2022-12-02] MEDS: ASCORBIC ACID 500 MG TABLET PO SCH (09:27)
[2022-12-02] MEDS: DIVALPROEX SPRINKLE 125 MG CAP.SPRINK PO SCH ×3 (09:27→16:10)
[2022-12-02] MEDS: DICYCLOMINE HCL 20 MG TABLET PO SCH ×4 (09:27→21:08)
[2022-12-02] MEDS: THERAHONEY GEL 1.5 OZ TUBE TOP SCH (09:28)
[2022-12-02] MEDS: REMEDY ESSENTIAL ZINC PASTE 113 GM TOP SCH ×2 (09:28→21:13)
[2022-12-02] MEDS: NEOMY/BACITRAC/POLYMI OINT 28.35 GM TUBE TOP SCH (09:28)
[2022-12-02] MEDS: ENOXAPARIN SODIUM 40 MG/0.4 ML DISP.SYRIN SQ SCH (09:29)
[2022-12-02 11:41] VITALS: BP 111/60
--- NOTE | 2022-12-02 12:00 | NUR ---
NO ACUTE CHANGE FROM MORNING ASSESSMENT
--- NOTE | 2022-12-02 15:33 | NUR ---
AWAITING PLACEMENT FOR SNF.
[2022-12-02 16:00] VITALS: BP 121/64
[2022-12-02 20:00] VITALS: BP 100/61
[2022-12-02] MEDS: MELATONIN 3 MG TABLET PO PRN (21:08)
[2022-12-02] MEDS: TAMSULOSIN HCL 0.4 MG CAP.SR.24H PO SCH (21:08)
[2022-12-03] VITALS: BP 102/51
--- NOTE | 2022-12-03 01:39 | NUR ---
Patient awake,alert,and,oriented x4. No acute distress noted. Patient with Tracheostomy intact to ventilator at HS. Left upper arm midline intact. Medicated as needed for complaint of pain. Will continue to monitor.
[2022-12-03] MEDS: OXYCODONE/APAP 5-325 MG TABLET PO PRN ×2 (03:34→21:20)
[2022-12-03 04:00] VITALS: BP 123/64
[2022-12-03] MEDS: LEVOTHYROXINE SODIUM 25 MCG TABLET PO SCH (05:18)
[2022-12-03 07:45] LABS: HEMATOCRIT 31.2 % (36.7-47.1); MEAN CORPUSCULAR VOLUME 91.9 fL (73.0-96.2); PLATELET COUNT (AUTO) 262 K/uL (152-348)
[2022-12-03 08:04] LABS: BILIRUBIN,TOTAL 0.3 mg/dL (0.2-1.0); CREATININE 1.5 mg/dL (0.6-1.3); MAGNESIUM 1.8 mg/dL (1.8-2.4); PHOSPHOROUS 4.2 mg/dL (2.5-4.9); POTASSIUM 4.6 mmol/L (3.5-5.1); TOTAL PROTEIN, SERUM 8.1 g/dL (6.4-8.2)
[2022-12-03] MEDS: DICYCLOMINE HCL 20 MG TABLET PO SCH ×4 (09:39→20:50)
[2022-12-03] MEDS: OLANZAPINE 2.5 MG TABLET PO SCH ×2 (09:41→17:05)
[2022-12-03] MEDS: buPROPion SR 150 MG TABLET.SA PO SCH ×2 (09:41→17:05)
[2022-12-03] MEDS: DIVALPROEX SPRINKLE 125 MG CAP.SPRINK PO SCH ×3 (09:41→17:05)
[2022-12-03] MEDS: METOPROLOL TARTRATE 25 MG TABLET PO SCH ×2 (09:41→20:52)
[2022-12-03] MEDS: ASCORBIC ACID 500 MG TABLET PO SCH (09:42)
[2022-12-03] MEDS: SENNOSIDES 1 TABLET PO SCH (09:42)
[2022-12-03] MEDS: PANTOPRAZOLE SODIUM 40 MG TABLET.DR PO SCH ×2 (09:42→20:50)
[2022-12-03] MEDS: BENZTROPINE MESYLATE 1 MG TABLET PO SCH ×2 (09:42→17:04)
[2022-12-03] MEDS: GABAPENTIN 300 MG CAPSULE PO SCH ×3 (09:42→17:05)
[2022-12-03] MEDS: DULOXETINE 60 MG CAPSULE.DR PO SCH ×2 (09:42→17:05)
[2022-12-03] MEDS: LIDOCAINE 5% PATCH TD SCH (09:43)
[2022-12-03] MEDS: MIRALAX 17 GM POWD.PACK PO SCH ×2 (09:43→17:08)
[2022-12-03] MEDS: ENOXAPARIN SODIUM 40 MG/0.4 ML DISP.SYRIN SQ SCH (09:44)
[2022-12-03] MEDS: FLUTICASONE PROP NASAL SPRAY 16 GM BOTTLE NS SCH ×2 (09:45→17:07)
[2022-12-03] MEDS: CHLORHEXIDINE GLUCONATE 15 ML MOUTHWASH MM SCH (09:46)
[2022-12-03] MEDS: HYOSCYAMINE SULFATE 0.125 MG TABLET PO SCH ×3 (09:46→17:07)
[2022-12-03] MEDS: REMEDY ESSENTIAL ZINC PASTE 113 GM TOP SCH ×2 (09:56→20:52)
[2022-12-03] MEDS: NEOMY/BACITRAC/POLYMI OINT 28.35 GM TUBE TOP SCH (09:58)
[2022-12-03] MEDS: THERAHONEY GEL 1.5 OZ TUBE TOP SCH (09:58)
[2022-12-03 11:31] VITALS: BP 126/54
[2022-12-03 16:00] VITALS: BP 126/77
--- NOTE | 2022-12-03 19:03 | NUR ---
Patient alert and oriented, able to communicate needs and follow directions. Patient denied any pain during shift. Requires of one person maximum-total assist with ADLS. Patient does have mobility on upper and lower extremities. However is unable to perform tasks on his own. Patient is obese and struggles to do things on his own. Trach in place and patent. No s/s of desaturation during shift. Patient with good appetite, drinks fluids well. No c/o GI discomfort. Scheduled medication administered as ordered thorough out the shifts. No ASE noted. All needs anticipated and met. Message left to Bjorn (father) regarding patient's discharge and importance of following though with discharge as instructed by MD. Message left in Hebrew, encouraged Bjorn to contact hospital to further explain discharge process. No call back recieved from Bjorn. DC paraplanner informed for proper follow up. Endorsed to incoming relieving RN.
[2022-12-03 20:00] VITALS: BP 154/78
[2022-12-03] MEDS: TAMSULOSIN HCL 0.4 MG CAP.SR.24H PO SCH (20:50)
[2022-12-04] VITALS: BP 141/70
[2022-12-04] MEDS: ACETAMINOPHEN 325 MG TABLET PO PRN (02:12)
[2022-12-04 04:00] VITALS: BP 116/56
[2022-12-04] MEDS: LEVOTHYROXINE SODIUM 25 MCG TABLET PO SCH (06:25)
[2022-12-04 07:21] LABS: HEMATOCRIT 28.8 % (36.7-47.1); MEAN CORPUSCULAR HEMOGLOBIN 29.3 uug (23.8-33.4); MEAN CORPUSCULAR VOLUME 92.4 fL (73.0-96.2); PLATELET COUNT (AUTO) 265 K/uL (152-348)
[2022-12-04 07:53] LABS: CREATININE 1.5 mg/dL (0.6-1.3); MAGNESIUM 1.7 mg/dL (1.8-2.4); PHOSPHOROUS 3.7 mg/dL (2.5-4.9); POTASSIUM 4.1 mmol/L (3.5-5.1)
[2022-12-04] MEDS: SENNOSIDES 1 TABLET PO SCH (09:00)
[2022-12-04] MEDS: ENOXAPARIN SODIUM 40 MG/0.4 ML DISP.SYRIN SQ SCH (09:00)
[2022-12-04] MEDS: REMEDY ESSENTIAL ZINC PASTE 113 GM TOP SCH ×2 (09:00→21:02)
[2022-12-04] MEDS ORDERED: MAGNESIUM OXIDE 400 MG TABLET PO ONE (09:15)
[2022-12-04] MEDS: OLANZAPINE 2.5 MG TABLET PO SCH ×2 (10:05→17:53)
[2022-12-04] MEDS: LIDOCAINE 5% PATCH TD SCH (10:06)
[2022-12-04] MEDS: BENZTROPINE MESYLATE 1 MG TABLET PO SCH ×2 (10:06→17:53)
[2022-12-04] MEDS: METOPROLOL TARTRATE 25 MG TABLET PO SCH ×2 (10:12→21:01)
[2022-12-04] MEDS: buPROPion SR 150 MG TABLET.SA PO SCH ×2 (10:13→17:53)
[2022-12-04] MEDS: DICYCLOMINE HCL 20 MG TABLET PO SCH ×4 (10:13→21:00)
[2022-12-04] MEDS: PANTOPRAZOLE SODIUM 40 MG TABLET.DR PO SCH ×2 (10:13→21:01)
[2022-12-04] MEDS: DIVALPROEX SPRINKLE 125 MG CAP.SPRINK PO SCH ×3 (10:13→17:53)
[2022-12-04] MEDS: GABAPENTIN 300 MG CAPSULE PO SCH ×3 (10:13→17:53)
[2022-12-04] MEDS: DULOXETINE 60 MG CAPSULE.DR PO SCH ×2 (10:13→17:53)
[2022-12-04] MEDS: ASCORBIC ACID 500 MG TABLET PO SCH (10:14)
[2022-12-04] MEDS: THERAHONEY GEL 1.5 OZ TUBE TOP SCH (10:16)
[2022-12-04] MEDS: NEOMY/BACITRAC/POLYMI OINT 28.35 GM TUBE TOP SCH (10:17)
[2022-12-04] MEDS: MIRALAX 17 GM POWD.PACK PO SCH ×2 (10:27→17:54)
[2022-12-04] MEDS: CHLORHEXIDINE GLUCONATE 15 ML MOUTHWASH MM SCH (10:27)
[2022-12-04] MEDS: FLUTICASONE PROP NASAL SPRAY 16 GM BOTTLE NS SCH ×2 (10:28→17:53)
[2022-12-04] MEDS: HYOSCYAMINE SULFATE 0.125 MG TABLET PO SCH ×3 (10:31→17:53)
[2022-12-04 11:30] VITALS: BP 129/59
[2022-12-04] MEDS: OXYCODONE/APAP 5-325 MG TABLET PO PRN ×3 (11:52→23:52)
--- NOTE | 2022-12-04 13:59 | NUR ---
PT ON T-PIECE TOLERATING WELL. MEDICATED FOR PAIN. PENDING DISCHARGE WHEN FACILITYASSIGNED.
[2022-12-04 15:40] VITALS: BP 123/72
[2022-12-04 20:00] VITALS: BP 131/64
[2022-12-04] MEDS: TAMSULOSIN HCL 0.4 MG CAP.SR.24H PO SCH (21:01)
[2022-12-05] VITALS: BP 140/42
--- NOTE | 2022-12-05 00:54 | NUR ---
AAOx4 Awake upon initial rounds. #7 Shiley trach intact. No respiratory distress noted. All needs attended. Mechanical ventilator at night. Tolerated po meds well. Medicated with Percocet as needed. Relief noted. Will monitor patient. Uses urinal at times. VSS.
[2022-12-05 04:00] VITALS: BP 142/70
[2022-12-05] MEDS: OXYCODONE/APAP 5-325 MG TABLET PO PRN ×4 (05:50→20:41)
[2022-12-05] MEDS: LEVOTHYROXINE SODIUM 25 MCG TABLET PO SCH (06:09)
[2022-12-05 06:52] LABS: CREATININE 1.5 mg/dL (0.6-1.3); MAGNESIUM 1.8 mg/dL (1.8-2.4); POTASSIUM 4.1 mmol/L (3.5-5.1)
--- NOTE | 2022-12-05 08:00 | NUR ---
Received patient lying on bed, awake, alert and oriented. with T-valve at 6lpm S#7. Denies any pain and no signs of distress. On tele monitoring with NSR. Awaiting for laboratory results.
[2022-12-05] MEDS: LIDOCAINE 5% PATCH TD SCH (08:50)
[2022-12-05] MEDS: FLUTICASONE PROP NASAL SPRAY 16 GM BOTTLE NS SCH ×2 (08:50→16:58)
[2022-12-05] MEDS: MIRALAX 17 GM POWD.PACK PO SCH ×2 (08:51→16:56)
[2022-12-05] MEDS: DULOXETINE 60 MG CAPSULE.DR PO SCH ×2 (08:51→16:57)
[2022-12-05] MEDS: DICYCLOMINE HCL 20 MG TABLET PO SCH ×4 (08:51→20:40)
[2022-12-05] MEDS: CHLORHEXIDINE GLUCONATE 15 ML MOUTHWASH MM SCH (08:51)
[2022-12-05] MEDS: GABAPENTIN 300 MG CAPSULE PO SCH ×3 (08:51→16:57)
[2022-12-05] MEDS: HYOSCYAMINE SULFATE 0.125 MG TABLET PO SCH ×3 (08:52→16:57)
[2022-12-05] MEDS: DIVALPROEX SPRINKLE 125 MG CAP.SPRINK PO SCH ×3 (08:52→16:56)
[2022-12-05] MEDS: OLANZAPINE 2.5 MG TABLET PO SCH ×2 (08:52→16:57)
[2022-12-05] MEDS: PANTOPRAZOLE SODIUM 40 MG TABLET.DR PO SCH ×2 (08:52→20:40)
[2022-12-05] MEDS: buPROPion SR 150 MG TABLET.SA PO SCH ×2 (08:52→16:56)
[2022-12-05] MEDS: BENZTROPINE MESYLATE 1 MG TABLET PO SCH ×2 (08:53→16:56)
[2022-12-05] MEDS: ENOXAPARIN SODIUM 40 MG/0.4 ML DISP.SYRIN SQ SCH (08:53)
[2022-12-05] MEDS: SENNOSIDES 1 TABLET PO SCH (09:05)
[2022-12-05] MEDS: ASCORBIC ACID 500 MG TABLET PO SCH (09:06)
[2022-12-05] MEDS: REMEDY ESSENTIAL ZINC PASTE 113 GM TOP SCH ×2 (09:07→20:40)
[2022-12-05] MEDS: METOPROLOL TARTRATE 25 MG TABLET PO SCH ×2 (09:07→20:42)
[2022-12-05] MEDS: NEOMY/BACITRAC/POLYMI OINT 28.35 GM TUBE TOP SCH (09:08)
[2022-12-05] MEDS: THERAHONEY GEL 1.5 OZ TUBE TOP SCH (09:08)
--- NOTE | 2022-12-05 11:00 | NUR ---
Seen and examine by Dr. White, Continue aerosol as tolerated. Could try times without PMV if helpful. Continue nocturnal ventilator (PCV RR 16, delta 25, +5); Not in distress. Bed bath and wound care done. Medications tolerated well.
[2022-12-05 12:00] VITALS: BP 120/70
--- NOTE | 2022-12-05 12:30 | NUR ---
Patient complaining of pain, Percocet tablet PO given. Positioned patient comfortably in bed.
[2022-12-05 16:19] VITALS: BP 108/62
--- NOTE | 2022-12-05 17:39 | NUR ---
Patient seen rested comfortably in bed, no signs of distress. SR on monitor. Medications tolerated well. Awaiting placement for SNF.
[2022-12-05 20:00] VITALS: BP 130/75
--- NOTE | 2022-12-05 20:00 | NUR ---
Received patient lying in bed. AAOx4. In no acute distress. Denies any SOB at this time. Complain of pain. Will provide PRN Percocet per order. NSR on tele with HR of 73/min. Trach intact. RT to place patient on vent during the night. Midline on LUKE intact and patent. Needs assessed and attended to. Safety measure initiated and call light within reached.
[2022-12-05] MEDS: TAMSULOSIN HCL 0.4 MG CAP.SR.24H PO SCH (20:40)
[2022-12-06] VITALS: BP 104/57
[2022-12-06] MEDS: OXYCODONE/APAP 5-325 MG TABLET PO PRN (03:50)
[2022-12-06 04:00] VITALS: BP 120/71
--- NOTE | 2022-12-06 05:53 | NUR ---
On Mechanical ventilator during the night. In no acute distress. Percocet 1 tab PO given for complain of pain and effective. NSR on tele with HR of 68/min. Needs attended to and met. Safety measure maintained and call light within reached.
[2022-12-06] MEDS: LEVOTHYROXINE SODIUM 25 MCG TABLET PO SCH (06:16)
--- NOTE | 2022-12-06 08:00 | NUR ---
Received patient on bed awake, alert and oriented. on t-piece intact, O2 @ 6lpm. No signs of distress, NSR on tele monitor at 72bpm.
--- NOTE | 2022-12-06 08:30 | NUR ---
Patient complaining of nausea, Zofran IV given as ordered. Medications tolerated well. Inserted new IV line at left wrist g.20 saline lock
[2022-12-06] MEDS: CHLORHEXIDINE GLUCONATE 15 ML MOUTHWASH MM SCH (08:52)
[2022-12-06] MEDS: LIDOCAINE 5% PATCH TD SCH (08:52)
[2022-12-06] MEDS: MIRALAX 17 GM POWD.PACK PO SCH ×2 (08:53→17:10)
[2022-12-06] MEDS: OLANZAPINE 2.5 MG TABLET PO SCH ×2 (08:53→17:10)
[2022-12-06] MEDS: FLUTICASONE PROP NASAL SPRAY 16 GM BOTTLE NS SCH ×2 (08:54→17:11)
[2022-12-06] MEDS: METOPROLOL TARTRATE 25 MG TABLET PO SCH ×2 (08:54→20:13)
[2022-12-06] MEDS: DICYCLOMINE HCL 20 MG TABLET PO SCH ×4 (08:54→20:13)
[2022-12-06] MEDS: DULOXETINE 60 MG CAPSULE.DR PO SCH ×2 (08:54→17:10)
[2022-12-06] MEDS: BENZTROPINE MESYLATE 1 MG TABLET PO SCH ×2 (08:55→17:11)
[2022-12-06] MEDS: HYOSCYAMINE SULFATE 0.125 MG TABLET PO SCH ×3 (08:55→17:11)
[2022-12-06] MEDS: GABAPENTIN 300 MG CAPSULE PO SCH ×3 (08:55→17:11)
[2022-12-06] MEDS: SENNOSIDES 1 TABLET PO SCH (08:55)
[2022-12-06] MEDS: PANTOPRAZOLE SODIUM 40 MG TABLET.DR PO SCH ×2 (08:55→20:13)
[2022-12-06] MEDS: buPROPion SR 150 MG TABLET.SA PO SCH ×2 (08:55→17:10)
[2022-12-06] MEDS: ASCORBIC ACID 500 MG TABLET PO SCH (08:55)
[2022-12-06] MEDS: REMEDY ESSENTIAL ZINC PASTE 113 GM TOP SCH ×2 (08:56→20:13)
[2022-12-06] MEDS: DIVALPROEX SPRINKLE 125 MG CAP.SPRINK PO SCH ×3 (08:56→17:11)
[2022-12-06] MEDS: THERAHONEY GEL 1.5 OZ TUBE TOP SCH (08:56)
[2022-12-06] MEDS: NEOMY/BACITRAC/POLYMI OINT 28.35 GM TUBE TOP SCH (08:57)
[2022-12-06] MEDS: ENOXAPARIN SODIUM 40 MG/0.4 ML DISP.SYRIN SQ SCH (09:06)
[2022-12-06 11:45] VITALS: BP 104/61
--- NOTE | 2022-12-06 13:00 | NUR ---
Resting comfortably in bed, no complain. No signs of distress. Medications tolerated well
[2022-12-06 15:54] VITALS: BP 122/72
--- NOTE | 2022-12-06 18:45 | NUR ---
AWAITING PLACEMENT, SEE CONTINUOUS MINING MACHINE COAL MINER NOTES
--- NOTE | 2022-12-06 19:30 | NUR ---
Received patient lying in bed. Asleep but easily arouse to verbal stimuli. AOx4. In no acute distress. No complain of pain or SOB at this time. NSR on tele with HR of 75/min. Trach intact. Vent used during the night. Midline on LUKE intact and patent. Needs assessed and attended to. Safety measure initiated and call light within reached.
[2022-12-06 20:00] VITALS: BP 121/64
[2022-12-06] MEDS: TAMSULOSIN HCL 0.4 MG CAP.SR.24H PO SCH (20:13)
[2022-12-06] MEDS: APIXABAN 2.5 MG TABLET PO SCH (20:14)
[2022-12-07] VITALS: BP 122/73
[2022-12-07 04:00] VITALS: BP 140/82
--- NOTE | 2022-12-07 05:23 | NUR ---
On Mechanical ventilator during the night. Slept well through out the night. No complain of pain or SOB. NSR on tele with HR of 68/min. Needs attended to and met. Safety measure maintained and call light within reached.
[2022-12-07] MEDS: ACETAMINOPHEN 325 MG TABLET PO PRN ×2 (06:08→12:04)
[2022-12-07] MEDS: LEVOTHYROXINE SODIUM 25 MCG TABLET PO SCH (06:08)
--- NOTE | 2022-12-07 08:00 | NUR ---
RESTING COMFORTABLY WITH NO SIGNS OF DISTRESS WITH 6L VIA T-PIECE SATURATING 96%
[2022-12-07] MEDS: HYOSCYAMINE SULFATE 0.125 MG TABLET PO SCH ×3 (09:24→16:30)
[2022-12-07] MEDS: CHLORHEXIDINE GLUCONATE 15 ML MOUTHWASH MM SCH (09:24)
[2022-12-07] MEDS: LIDOCAINE 5% PATCH TD SCH (09:24)
[2022-12-07] MEDS: FLUTICASONE PROP NASAL SPRAY 16 GM BOTTLE NS SCH ×2 (09:24→16:29)
[2022-12-07] MEDS: MIRALAX 17 GM POWD.PACK PO SCH ×2 (09:24→16:30)
[2022-12-07] MEDS: GABAPENTIN 300 MG CAPSULE PO SCH ×3 (09:25→16:30)
[2022-12-07] MEDS: DICYCLOMINE HCL 20 MG TABLET PO SCH ×4 (09:25→20:24)
[2022-12-07] MEDS: METOPROLOL TARTRATE 25 MG TABLET PO SCH ×2 (09:25→20:25)
[2022-12-07] MEDS: buPROPion SR 150 MG TABLET.SA PO SCH ×2 (09:25→16:30)
[2022-12-07] MEDS: SENNOSIDES 1 TABLET PO SCH (09:25)
[2022-12-07] MEDS: BENZTROPINE MESYLATE 1 MG TABLET PO SCH ×2 (09:26→16:30)
[2022-12-07] MEDS: DULOXETINE 60 MG CAPSULE.DR PO SCH ×2 (09:26→16:30)
[2022-12-07] MEDS: DIVALPROEX SPRINKLE 125 MG CAP.SPRINK PO SCH ×3 (09:26→16:30)
[2022-12-07] MEDS: OLANZAPINE 2.5 MG TABLET PO SCH ×2 (09:26→16:30)
[2022-12-07] MEDS: ASCORBIC ACID 500 MG TABLET PO SCH (09:26)
[2022-12-07] MEDS: PANTOPRAZOLE SODIUM 40 MG TABLET.DR PO SCH ×2 (09:26→20:25)
[2022-12-07] MEDS: REMEDY ESSENTIAL ZINC PASTE 113 GM TOP SCH ×2 (09:27→21:13)
[2022-12-07] MEDS: THERAHONEY GEL 1.5 OZ TUBE TOP SCH (09:27)
[2022-12-07] MEDS: APIXABAN 2.5 MG TABLET PO SCH ×2 (09:28→20:26)
[2022-12-07] MEDS: NEOMY/BACITRAC/POLYMI OINT 28.35 GM TUBE TOP SCH (09:28)
[2022-12-07 11:51] VITALS: BP 115/70
--- NOTE | 2022-12-07 12:00 | NUR ---
SEEN BY DR CATALAN FOR F-U SEE NOTES
[2022-12-07 16:25] VITALS: BP 148/78
[2022-12-07] MEDS: OXYCODONE/APAP 5-325 MG TABLET PO PRN (18:25)
--- NOTE | 2022-12-07 19:57 | NUR ---
Received Pt from day shift. Pt is A&Ox4 and cooperative. Pt's trach is intact. IV on left wrist. No fluids running Safety measures in place. Will continue to monitor.
[2022-12-07] MEDS: TAMSULOSIN HCL 0.4 MG CAP.SR.24H PO SCH (20:24)
[2022-12-07 20:30] VITALS: BP 136/76
[2022-12-08 00:06] VITALS: BP 108/53
[2022-12-08] MEDS: OXYCODONE/APAP 5-325 MG TABLET PO PRN ×3 (03:07→21:53)
[2022-12-08 04:00] VITALS: BP 97/62
[2022-12-08] MEDS: LEVOTHYROXINE SODIUM 25 MCG TABLET PO SCH (06:07)
--- NOTE | 2022-12-08 06:57 | NUR ---
End of Shift Note: Pt is A&Ox4 and cooperative. Pt's trach is intact. IV on left wrist. No fluids running Safety measures in place. Will continue to monitor.
--- NOTE | 2022-12-08 08:15 | NUR ---
Received patient on bed awake, alert and oriented. Patient on T-piece with 6 lpm. with IV site at left hand g.20. No signs of distress, NSR on tele monitor.
[2022-12-08] MEDS: METOPROLOL TARTRATE 25 MG TABLET PO SCH ×2 (08:52→20:46)
[2022-12-08] MEDS: DULOXETINE 60 MG CAPSULE.DR PO SCH ×2 (08:52→16:54)
[2022-12-08] MEDS: ASCORBIC ACID 500 MG TABLET PO SCH (08:52)
[2022-12-08] MEDS: GABAPENTIN 300 MG CAPSULE PO SCH ×3 (08:52→16:54)
[2022-12-08] MEDS: buPROPion SR 150 MG TABLET.SA PO SCH ×2 (08:52→16:54)
[2022-12-08] MEDS: DICYCLOMINE HCL 20 MG TABLET PO SCH ×4 (08:53→20:50)
[2022-12-08] MEDS: PANTOPRAZOLE SODIUM 40 MG TABLET.DR PO SCH ×2 (08:54→20:50)
[2022-12-08] MEDS: OLANZAPINE 2.5 MG TABLET PO SCH ×2 (08:54→16:54)
[2022-12-08] MEDS: DIVALPROEX SPRINKLE 125 MG CAP.SPRINK PO SCH ×3 (08:54→16:54)
[2022-12-08] MEDS: CHLORHEXIDINE GLUCONATE 15 ML MOUTHWASH MM SCH (08:54)
[2022-12-08] MEDS: SENNOSIDES 1 TABLET PO SCH (08:54)
[2022-12-08] MEDS: APIXABAN 2.5 MG TABLET PO SCH ×2 (08:54→20:46)
[2022-12-08] MEDS: BENZTROPINE MESYLATE 1 MG TABLET PO SCH ×2 (08:54→16:54)
[2022-12-08] MEDS: FLUTICASONE PROP NASAL SPRAY 16 GM BOTTLE NS SCH ×2 (08:55→16:53)
[2022-12-08] MEDS: MIRALAX 17 GM POWD.PACK PO SCH ×2 (08:55→16:53)
[2022-12-08] MEDS: HYOSCYAMINE SULFATE 0.125 MG TABLET PO SCH ×3 (08:55→16:54)
[2022-12-08] MEDS: LIDOCAINE 5% PATCH TD SCH (08:56)
--- NOTE | 2022-12-08 09:05 | NUR ---
Seen and examined by Dr. Leigh, continue care plan. Patient tolerated medications
[2022-12-08] MEDS: THERAHONEY GEL 1.5 OZ TUBE TOP SCH (10:14)
[2022-12-08] MEDS: NEOMY/BACITRAC/POLYMI OINT 28.35 GM TUBE TOP SCH (10:15)
[2022-12-08] MEDS: REMEDY ESSENTIAL ZINC PASTE 113 GM TOP SCH ×2 (10:16→20:51)
[2022-12-08 11:56] VITALS: BP 119/68
[2022-12-08] MEDS: ACETAMINOPHEN 325 MG TABLET PO PRN (12:32)
--- NOTE | 2022-12-08 12:43 | NUR ---
Reports of pain LE. Percocet 1tab PO given as needed. Observed accordingly.
--- NOTE | 2022-12-08 13:42 | NUR ---
PATIENT PLACED ON VENTILATOR FOR OBSERVATION, COMPLAINING OF SOB. MONITORED PATIENT FROM TIME TO TIME, STABLE AT COMFORTABLE IN BED. NEEDS ATTENDED
--- NOTE | 2022-12-08 13:44 | NUR ---
INSERTED MIDLINE ON RIGHT UPPER ARM G. 18. INTACT AND CLEAN.
[2022-12-08 16:27] VITALS: BP 131/77
[2022-12-08 20:28] VITALS: BP 96/58
[2022-12-08] MEDS: TAMSULOSIN HCL 0.4 MG CAP.SR.24H PO SCH (20:50)
[2022-12-09 00:12] VITALS: BP 114/51
[2022-12-09 04:46] VITALS: BP 126/65
[2022-12-09] MEDS: OXYCODONE/APAP 5-325 MG TABLET PO PRN ×3 (06:41→18:49)
[2022-12-09] MEDS: LEVOTHYROXINE SODIUM 25 MCG TABLET PO SCH (06:41)
--- NOTE | 2022-12-09 08:19 | NUR ---
Received patient on bed, A&OX4 on T-piece at 6 lpm with IV site on left hand g.20. Patient resting comfortably in bed, no complain.
[2022-12-09 08:41] LABS: HEMATOCRIT 33.7 % (36.7-47.1); MEAN CORPUSCULAR HEMOGLOBIN 29.3 uug (23.8-33.4); MEAN CORPUSCULAR VOLUME 91.7 fL (73.0-96.2); PLATELET COUNT (AUTO) 239 K/uL (152-348)
[2022-12-09 08:47] LABS: ALANINE AMINOTRANSFERASE 8 U/L (16-63); ALKALINE PHOSPHATASE 97 U/L (50-136); ASPARTATE AMINOTRANSFERASE < 5 U/L (15-37); BILIRUBIN,TOTAL 0.3 mg/dL (0.2-1.0); CARBON DIOXIDE 33 mmol/L (21-32); CHLORIDE 99 mmol/L (98-107); CREATININE 1.3 mg/dL (0.6-1.3); GLUCOSE 116 mg/dL (74-106); MAGNESIUM 1.9 mg/dL (1.8-2.4); PHOSPHOROUS 4.6 mg/dL (2.5-4.9); POTASSIUM 4.1 mmol/L (3.5-5.1); TOTAL PROTEIN, SERUM 8.5 g/dL (6.4-8.2); UREA NITROGEN, BLOOD 16 mg/dL (7-18)
[2022-12-09] MEDS: LIDOCAINE 5% PATCH TD SCH (09:04)
[2022-12-09] MEDS: CHLORHEXIDINE GLUCONATE 15 ML MOUTHWASH MM SCH (09:04)
[2022-12-09] MEDS: OLANZAPINE 2.5 MG TABLET PO SCH ×2 (09:05→17:27)
[2022-12-09] MEDS: DULOXETINE 60 MG CAPSULE.DR PO SCH ×2 (09:05→17:26)
[2022-12-09] MEDS: MIRALAX 17 GM POWD.PACK PO SCH ×2 (09:05→17:24)
[2022-12-09] MEDS: HYOSCYAMINE SULFATE 0.125 MG TABLET PO SCH ×3 (09:05→17:26)
[2022-12-09] MEDS: DIVALPROEX SPRINKLE 125 MG CAP.SPRINK PO SCH ×3 (09:05→17:27)
[2022-12-09] MEDS: FLUTICASONE PROP NASAL SPRAY 16 GM BOTTLE NS SCH ×2 (09:05→17:28)
[2022-12-09] MEDS: buPROPion SR 150 MG TABLET.SA PO SCH ×2 (09:06→17:27)
[2022-12-09] MEDS: GABAPENTIN 300 MG CAPSULE PO SCH ×3 (09:06→17:27)
[2022-12-09] MEDS: BENZTROPINE MESYLATE 1 MG TABLET PO SCH ×2 (09:06→17:27)
[2022-12-09] MEDS: APIXABAN 2.5 MG TABLET PO SCH ×2 (09:06→20:19)
[2022-12-09] MEDS: DICYCLOMINE HCL 20 MG TABLET PO SCH ×4 (09:06→20:18)
[2022-12-09] MEDS: SENNOSIDES 1 TABLET PO SCH (09:07)
[2022-12-09] MEDS: PANTOPRAZOLE SODIUM 40 MG TABLET.DR PO SCH ×2 (09:07→20:18)
[2022-12-09] MEDS: METOPROLOL TARTRATE 25 MG TABLET PO SCH ×2 (09:12→20:18)
[2022-12-09] MEDS: THERAHONEY GEL 1.5 OZ TUBE TOP SCH (09:13)
[2022-12-09] MEDS: ASCORBIC ACID 500 MG TABLET PO SCH (09:13)
[2022-12-09] MEDS: REMEDY ESSENTIAL ZINC PASTE 113 GM TOP SCH ×2 (09:13→20:21)
[2022-12-09] MEDS: NEOMY/BACITRAC/POLYMI OINT 28.35 GM TUBE TOP SCH (09:13)
[2022-12-09 11:30] VITALS: BP 112/58
--- NOTE | 2022-12-09 14:00 | NUR ---
Seen patient asleep, resting comfortably on bed. No acute changes from morning assessment.
[2022-12-09 16:00] VITALS: BP 120/65
--- NOTE | 2022-12-09 18:35 | NUR ---
CONTINUE WITH PAIN MANAGEMENT NO SS OF DISTRESS. STILL AWAITING PLACEMENT FOR SNF. SEE CM NOTES
[2022-12-09 20:00] VITALS: BP 159/77
[2022-12-09] MEDS: TAMSULOSIN HCL 0.4 MG CAP.SR.24H PO SCH (20:18)
--- NOTE | 2022-12-09 23:45 | NUR ---
PATIENT BACK ON PB 840 VENT @ 19:40 , WITH TRACH, SUCTION PRN; PT ASLEEP, DOING OK, CHECK CUFF, NO VENT CHANGES MADE, SAT 97%, PT ON PC 25 PIP 26/10 TI 1.0. D MARGARET ROYAL Addendum: 12/09/22 at 2347 by ESTHER ROBLES RT Amended: Links added.
[2022-12-10] VITALS: BP 141/78
[2022-12-10] MEDS: OXYCODONE/APAP 5-325 MG TABLET PO PRN ×4 (02:22→21:00)
[2022-12-10 04:00] VITALS: BP 115/55
[2022-12-10] MEDS: LEVOTHYROXINE SODIUM 25 MCG TABLET PO SCH (06:09)
[2022-12-10] MEDS: BENZTROPINE MESYLATE 1 MG TABLET PO SCH ×2 (08:33→17:08)
[2022-12-10] MEDS: DULOXETINE 60 MG CAPSULE.DR PO SCH ×2 (08:33→17:02)
[2022-12-10] MEDS: GABAPENTIN 300 MG CAPSULE PO SCH ×3 (08:34→17:06)
[2022-12-10] MEDS: DICYCLOMINE HCL 20 MG TABLET PO SCH ×4 (08:34→20:51)
[2022-12-10] MEDS: buPROPion SR 150 MG TABLET.SA PO SCH ×2 (08:34→17:02)
[2022-12-10] MEDS: DIVALPROEX SPRINKLE 125 MG CAP.SPRINK PO SCH ×3 (08:34→17:02)
[2022-12-10] MEDS: ASCORBIC ACID 500 MG TABLET PO SCH (08:34)
[2022-12-10] MEDS: FLUTICASONE PROP NASAL SPRAY 16 GM BOTTLE NS SCH ×2 (08:35→17:02)
[2022-12-10] MEDS: HYOSCYAMINE SULFATE 0.125 MG TABLET PO SCH ×3 (08:35→17:06)
[2022-12-10] MEDS: CHLORHEXIDINE GLUCONATE 15 ML MOUTHWASH MM SCH (08:35)
[2022-12-10] MEDS: LIDOCAINE 5% PATCH TD SCH (08:36)
[2022-12-10] MEDS: NEOMY/BACITRAC/POLYMI OINT 28.35 GM TUBE TOP SCH (08:37)
[2022-12-10] MEDS: THERAHONEY GEL 1.5 OZ TUBE TOP SCH (08:37)
[2022-12-10] MEDS: REMEDY ESSENTIAL ZINC PASTE 113 GM TOP SCH ×2 (08:37→20:53)
[2022-12-10] MEDS: APIXABAN 2.5 MG TABLET PO SCH ×2 (08:42→20:52)
[2022-12-10] MEDS: MIRALAX 17 GM POWD.PACK PO SCH ×2 (08:48→17:06)
[2022-12-10] MEDS: SENNOSIDES 1 TABLET PO SCH (08:48)
[2022-12-10] MEDS: METOPROLOL TARTRATE 25 MG TABLET PO SCH ×2 (08:48→20:52)
[2022-12-10] MEDS: PANTOPRAZOLE SODIUM 40 MG TABLET.DR PO SCH ×2 (08:49→20:52)
[2022-12-10 11:30] VITALS: BP 119/69
--- NOTE | 2022-12-10 14:59 | NUR ---
Rcvd pt in trach 6lpm. Pt saturating 97%. No episode of seizure. Continue pain management.
[2022-12-10 16:00] VITALS: BP 133/76
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
[2022-12-10] MEDS: OLANZAPINE 2.5 MG TABLET PO SCH ×2 (17:01→17:08)
--- NOTE | 2022-12-10 18:06 | NUR ---
Pt. verbalized pain every 6 hours. Pain medication given as ordered. Pt. tolerated it well. Pt. stable and no episode of any distress. Still awaiting for the place to transfer to.
[2022-12-10 20:00] VITALS: BP_SYST 108; BP_SYST 159; BP_DIAS 48; BP_DIAS 77
[2022-12-10] MEDS: TAMSULOSIN HCL 0.4 MG CAP.SR.24H PO SCH (20:56)
[2022-12-11] VITALS: BP 128/67
[2022-12-11] MEDS: OXYCODONE/APAP 5-325 MG TABLET PO PRN ×3 (02:22→19:48)
[2022-12-11 04:00] VITALS: BP 122/71
[2022-12-11] MEDS: LEVOTHYROXINE SODIUM 25 MCG TABLET PO SCH (06:36)
--- NOTE | 2022-12-11 06:36 | NUR ---
Patient rested well in between care; tolerated nocturnal vent; c/o pain x2 and medicated with percocet twice. continue to monitor; continue plan of care.
[2022-12-11] MEDS: PANTOPRAZOLE SODIUM 40 MG TABLET.DR PO SCH ×2 (08:36→20:44)
[2022-12-11] MEDS: ASCORBIC ACID 500 MG TABLET PO SCH (08:36)
[2022-12-11] MEDS: BENZTROPINE MESYLATE 1 MG TABLET PO SCH ×2 (08:36→17:48)
[2022-12-11] MEDS: OLANZAPINE 2.5 MG TABLET PO SCH ×2 (08:37→17:48)
[2022-12-11] MEDS: DIVALPROEX SPRINKLE 125 MG CAP.SPRINK PO SCH ×3 (08:37→17:48)
[2022-12-11] MEDS: MIRALAX 17 GM POWD.PACK PO SCH ×2 (08:38→17:00)
[2022-12-11] MEDS: CHLORHEXIDINE GLUCONATE 15 ML MOUTHWASH MM SCH (08:38)
[2022-12-11] MEDS: GABAPENTIN 300 MG CAPSULE PO SCH ×3 (08:38→17:49)
[2022-12-11] MEDS: SENNOSIDES 1 TABLET PO SCH (08:38)
[2022-12-11] MEDS: DULOXETINE 60 MG CAPSULE.DR PO SCH ×2 (08:38→17:49)
[2022-12-11] MEDS: FLUTICASONE PROP NASAL SPRAY 16 GM BOTTLE NS SCH ×2 (08:39→17:51)
[2022-12-11] MEDS: DICYCLOMINE HCL 20 MG TABLET PO SCH ×4 (08:39→20:44)
[2022-12-11] MEDS: APIXABAN 2.5 MG TABLET PO SCH ×2 (08:40→20:44)
[2022-12-11] MEDS: METOPROLOL TARTRATE 25 MG TABLET PO SCH ×2 (08:40→20:44)
[2022-12-11] MEDS: buPROPion SR 150 MG TABLET.SA PO SCH ×2 (08:40→17:49)
[2022-12-11] MEDS: THERAHONEY GEL 1.5 OZ TUBE TOP SCH (08:41)
[2022-12-11] MEDS: LIDOCAINE 5% PATCH TD SCH (08:41)
[2022-12-11] MEDS: NEOMY/BACITRAC/POLYMI OINT 28.35 GM TUBE TOP SCH (08:42)
[2022-12-11] MEDS: REMEDY ESSENTIAL ZINC PASTE 113 GM TOP SCH ×2 (08:42→20:45)
[2022-12-11] MEDS: HYOSCYAMINE SULFATE 0.125 MG TABLET PO SCH ×3 (08:51→17:48)
[2022-12-11 11:28] VITALS: BP 121/46
[2022-12-11 15:52] VITALS: BP 126/77
[2022-12-11 20:31] VITALS: BP 134/71
[2022-12-11] MEDS: TAMSULOSIN HCL 0.4 MG CAP.SR.24H PO SCH (20:43)
[2022-12-12 05:37] VITALS: BP 124/60
[2022-12-12] MEDS: LEVOTHYROXINE SODIUM 25 MCG TABLET PO SCH (06:03)
[2022-12-12] MEDS: MIRALAX 17 GM POWD.PACK PO SCH ×2 (09:00→17:00)
[2022-12-12] MEDS: SENNOSIDES 1 TABLET PO SCH (09:00)
[2022-12-12] MEDS: LIDOCAINE 5% PATCH TD SCH (09:07)
[2022-12-12] MEDS: ASCORBIC ACID 500 MG TABLET PO SCH (09:07)
[2022-12-12] MEDS: PANTOPRAZOLE SODIUM 40 MG TABLET.DR PO SCH ×2 (09:08→20:07)
[2022-12-12] MEDS: OLANZAPINE 2.5 MG TABLET PO SCH ×2 (09:08→17:59)
[2022-12-12] MEDS: DULOXETINE 60 MG CAPSULE.DR PO SCH ×2 (09:09→17:58)
[2022-12-12] MEDS: DIVALPROEX SPRINKLE 125 MG CAP.SPRINK PO SCH ×3 (09:09→17:58)
[2022-12-12] MEDS: GABAPENTIN 300 MG CAPSULE PO SCH ×3 (09:09→17:59)
[2022-12-12] MEDS: DICYCLOMINE HCL 20 MG TABLET PO SCH ×4 (09:09→20:06)
[2022-12-12] MEDS: buPROPion SR 150 MG TABLET.SA PO SCH ×2 (09:09→17:59)
[2022-12-12] MEDS: HYOSCYAMINE SULFATE 0.125 MG TABLET PO SCH ×3 (09:11→17:59)
[2022-12-12] MEDS: FLUTICASONE PROP NASAL SPRAY 16 GM BOTTLE NS SCH ×2 (09:11→17:58)
[2022-12-12] MEDS: METOPROLOL TARTRATE 25 MG TABLET PO SCH ×2 (09:11→20:08)
[2022-12-12] MEDS: BENZTROPINE MESYLATE 1 MG TABLET PO SCH ×2 (09:12→17:58)
[2022-12-12] MEDS: APIXABAN 2.5 MG TABLET PO SCH ×2 (09:16→20:18)
[2022-12-12] MEDS: THERAHONEY GEL 1.5 OZ TUBE TOP SCH (10:00)
[2022-12-12] MEDS: CHLORHEXIDINE GLUCONATE 15 ML MOUTHWASH MM SCH (10:00)
[2022-12-12] MEDS: REMEDY ESSENTIAL ZINC PASTE 113 GM TOP SCH ×2 (10:00→20:18)
[2022-12-12] MEDS: NEOMY/BACITRAC/POLYMI OINT 28.35 GM TUBE TOP SCH (10:01)
[2022-12-12 11:25] VITALS: BP 123/60
[2022-12-12 15:43] VITALS: BP 139/80
[2022-12-12] MEDS: OXYCODONE/APAP 5-325 MG TABLET PO PRN (16:00)
--- NOTE | 2022-12-12 19:40 | NUR ---
Pt aox4. no acute distress noted. denies pain,nausea and vomiting. on 6l tpiece trach saturating 97-98%. vitals wnl. gave norco PRN for pain. call light within reach. bed locked. all needs met. will endorsed to noc shift.
[2022-12-12 20:00] VITALS: BP 108/53
[2022-12-12] MEDS: TAMSULOSIN HCL 0.4 MG CAP.SR.24H PO SCH (20:07)
[2022-12-13] VITALS: BP 114/61
[2022-12-13 04:05] VITALS: BP 111/62
[2022-12-13] MEDS: OXYCODONE/APAP 5-325 MG TABLET PO PRN ×2 (04:55→18:13)
[2022-12-13] MEDS: LEVOTHYROXINE SODIUM 25 MCG TABLET PO SCH (06:33)
--- NOTE | 2022-12-13 08:15 | NUR ---
Received patient on bed awake, alert and oriented. Pt. with t-piece intact, O2 @ 6lpm. Pt. with IV site on left hand g.20 intact, on soft diet. No signs of distress, NSR on tele monitor at 82bpm.
[2022-12-13] MEDS: CHLORHEXIDINE GLUCONATE 15 ML MOUTHWASH MM SCH (08:42)
[2022-12-13] MEDS: ASCORBIC ACID 500 MG TABLET PO SCH (08:43)
[2022-12-13] MEDS: LIDOCAINE 5% PATCH TD SCH (08:43)
[2022-12-13] MEDS: BENZTROPINE MESYLATE 1 MG TABLET PO SCH ×2 (08:43→16:41)
[2022-12-13] MEDS: PANTOPRAZOLE SODIUM 40 MG TABLET.DR PO SCH ×2 (08:43→21:27)
[2022-12-13] MEDS: DICYCLOMINE HCL 20 MG TABLET PO SCH ×4 (08:43→21:25)
[2022-12-13] MEDS: GABAPENTIN 300 MG CAPSULE PO SCH ×3 (08:43→16:39)
[2022-12-13] MEDS: MIRALAX 17 GM POWD.PACK PO SCH ×2 (08:43→16:42)
[2022-12-13] MEDS: DIVALPROEX SPRINKLE 125 MG CAP.SPRINK PO SCH ×3 (08:43→16:39)
[2022-12-13] MEDS: HYOSCYAMINE SULFATE 0.125 MG TABLET PO SCH ×3 (08:43→16:40)
[2022-12-13] MEDS: OLANZAPINE 2.5 MG TABLET PO SCH ×2 (08:44→16:40)
[2022-12-13] MEDS: DULOXETINE 60 MG CAPSULE.DR PO SCH ×2 (08:44→16:39)
[2022-12-13] MEDS: buPROPion SR 150 MG TABLET.SA PO SCH ×2 (08:44→16:39)
[2022-12-13] MEDS: SENNOSIDES 1 TABLET PO SCH (08:44)
[2022-12-13] MEDS: METOPROLOL TARTRATE 25 MG TABLET PO SCH ×2 (08:48→21:26)
[2022-12-13] MEDS: APIXABAN 2.5 MG TABLET PO SCH ×2 (08:48→21:25)
[2022-12-13] MEDS: FLUTICASONE PROP NASAL SPRAY 16 GM BOTTLE NS SCH ×2 (09:04→16:39)
[2022-12-13] MEDS: NEOMY/BACITRAC/POLYMI OINT 28.35 GM TUBE TOP SCH (09:05)
[2022-12-13] MEDS: REMEDY ESSENTIAL ZINC PASTE 113 GM TOP SCH ×2 (09:05→21:27)
[2022-12-13] MEDS: THERAHONEY GEL 1.5 OZ TUBE TOP SCH (09:05)
[2022-12-13 11:20] VITALS: BP 125/73
--- NOTE | 2022-12-13 13:54 | NUR ---
RESTING COMFORTABLY WITH NO SIGNS OF DISTRESS WITH 6L OXYGEN VIA T-PIECE SATURATING 96%. NO ACUTE CHANGE FROM MORNING ASSESSMENT. NEEDS ATTENDED
[2022-12-13 15:06] VITALS: BP 145/76
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
[2022-12-13 20:00] VITALS: BP 128/76
[2022-12-13] MEDS: TAMSULOSIN HCL 0.4 MG CAP.SR.24H PO SCH (21:25)
[2022-12-14] VITALS: BP 145/76
[2022-12-14] MEDS: OXYCODONE/APAP 5-325 MG TABLET PO PRN ×3 (02:00→20:49)
[2022-12-14 03:51] VITALS: BP 123/75
[2022-12-14 06:28] LABS: ABG BASE EXCESS 1.3 mmol/L; ABG PCO2 47.4 mmHg (35.0-45.0); ABG PH 7.373 (7.350-7.450); ABG SITE RIGHT RADIAL; ABG TOTAL HEMOGLOBIN 11.9 G/dL (13.5-18.0); COHb 0.6 % (0.5-1.5); MetHb 0.1 % (0.0-1.5); O2Hb 96.2 % (94.0-97.0); VENT MODE VENT - A/C
[2022-12-14 06:35] LABS: VT, ABG 550 mL
[2022-12-14] MEDS: LEVOTHYROXINE SODIUM 25 MCG TABLET PO SCH (06:56)
--- NOTE | 2022-12-14 07:24 | NUR ---
WOUND CARE CONSULT: PT SEEN FOR GROIN FOLD/PERINEAL RASH. RECOMMENDATIONS MADE FOR SKIN PROTECTION. DISCUSSED WITH NURSING STAFF AND PT. MD IN AGREEMENT WITH PLAN OF CARE.
--- NOTE | 2022-12-14 08:00 | NUR ---
Received patient in bed awake, alert and oriented. Pt. on T-piece intact, O2 @ 6lpm. Pt. IV site on left hand g.20 intact, on soft diet. No signs of distress, SR on tele monitor at 92bpm.
[2022-12-14] MEDS: MIRALAX 17 GM POWD.PACK PO SCH ×2 (09:00→17:00)
[2022-12-14] MEDS: SENNOSIDES 1 TABLET PO SCH (09:00)
[2022-12-14] MEDS: CHLORHEXIDINE GLUCONATE 15 ML MOUTHWASH MM SCH (09:04)
[2022-12-14] MEDS: LIDOCAINE 5% PATCH TD SCH (09:04)
[2022-12-14] MEDS: CLOTRIMAZOLE 1% CREAM 30 GM TUBE TOP SCH ×2 (09:04→17:18)
[2022-12-14] MEDS: OLANZAPINE 2.5 MG TABLET PO SCH ×2 (09:05→17:17)
[2022-12-14] MEDS: buPROPion SR 150 MG TABLET.SA PO SCH ×2 (09:05→17:16)
[2022-12-14] MEDS: DICYCLOMINE HCL 20 MG TABLET PO SCH ×4 (09:05→20:46)
[2022-12-14] MEDS: FLUTICASONE PROP NASAL SPRAY 16 GM BOTTLE NS SCH ×2 (09:05→17:16)
[2022-12-14] MEDS: DULOXETINE 60 MG CAPSULE.DR PO SCH ×2 (09:05→17:17)
[2022-12-14] MEDS: PANTOPRAZOLE SODIUM 40 MG TABLET.DR PO SCH ×2 (09:05→20:46)
[2022-12-14] MEDS: HYOSCYAMINE SULFATE 0.125 MG TABLET PO SCH ×3 (09:05→17:16)
[2022-12-14] MEDS: DIVALPROEX SPRINKLE 125 MG CAP.SPRINK PO SCH ×3 (09:05→17:17)
[2022-12-14] MEDS: GABAPENTIN 300 MG CAPSULE PO SCH ×3 (09:06→17:17)
[2022-12-14] MEDS: BENZTROPINE MESYLATE 1 MG TABLET PO SCH ×2 (09:06→17:16)
[2022-12-14] MEDS: ASCORBIC ACID 500 MG TABLET PO SCH (09:06)
[2022-12-14] MEDS: METOPROLOL TARTRATE 25 MG TABLET PO SCH ×2 (09:06→20:37)
[2022-12-14] MEDS: APIXABAN 2.5 MG TABLET PO SCH ×2 (09:09→20:48)
[2022-12-14] MEDS: REMEDY ESSENTIAL ZINC PASTE 113 GM TOP SCH ×3 (09:18→21:00)
[2022-12-14] MEDS: NEOMY/BACITRAC/POLYMI OINT 28.35 GM TUBE TOP SCH (09:18)
[2022-12-14] MEDS: THERAHONEY GEL 1.5 OZ TUBE TOP SCH (09:18)
[2022-12-14 11:07] VITALS: BP 112/81
[2022-12-14 15:09] VITALS: BP 106/50
[2022-12-14 20:15] VITALS: BP 111/61
[2022-12-14] MEDS: TAMSULOSIN HCL 0.4 MG CAP.SR.24H PO SCH (20:49)
[2022-12-15 00:09] VITALS: BP 108/62
[2022-12-15] MEDS: OXYCODONE/APAP 5-325 MG TABLET PO PRN ×3 (03:55→20:31)
[2022-12-15 04:10] VITALS: BP 96/54
[2022-12-15 04:22] LABS: ABG BASE EXCESS 4.4 mmol/L; ABG HCO3 30.9 mmol/L; ABG PCO2 55.4 mmHg (35.0-45.0); ABG PH 7.365 (7.350-7.450); ABG PO2 88.8 mmHg (75.0-100.0); ABG SITE RIGHT RADIAL; ABG TOTAL HEMOGLOBIN 12.2 G/dL (13.5-18.0); COHb 0.5 % (0.5-1.5); MetHb 0.1 % (0.0-1.5); O2Hb 96.4 % (94.0-97.0); VENT MODE VENT - A/C; VT, ABG 550 mL
[2022-12-15] MEDS: LEVOTHYROXINE SODIUM 25 MCG TABLET PO SCH (06:25)
[2022-12-15 06:47] LABS: HEMATOCRIT 33.4 % (36.7-47.1); MEAN CORPUSCULAR HEMOGLOBIN 28.8 uug (23.8-33.4); PLATELET COUNT (AUTO) 301 K/uL (152-348)
--- NOTE | 2022-12-15 06:59 | NUR ---
Report received from ongoing nurse at 1935, patient is AAOX4, no acute events, no distress observed. Patient is IV site is intact, dry; and patent. Patient has excellent appetite and slept well after getting her scheduled meds and prn. Will continue to monitor patient for safety.
--- NOTE | 2022-12-15 07:30 | NUR ---
Awake, alert, oriented x 4. Trach to 6L p mist. On moderate high back rest
[2022-12-15 07:55] LABS: BILIRUBIN,TOTAL 0.3 mg/dL (0.2-1.0); MAGNESIUM 1.8 mg/dL (1.8-2.4); PHOSPHOROUS 4.2 mg/dL (2.5-4.9); POTASSIUM 4.2 mmol/L (3.5-5.1); TOTAL PROTEIN, SERUM 8.5 g/dL (6.4-8.2)
[2022-12-15] MEDS: CHLORHEXIDINE GLUCONATE 15 ML MOUTHWASH MM SCH (09:28)
[2022-12-15] MEDS: FLUTICASONE PROP NASAL SPRAY 16 GM BOTTLE NS SCH ×2 (09:29→18:10)
[2022-12-15] MEDS: DICYCLOMINE HCL 20 MG TABLET PO SCH ×4 (09:30→20:31)
[2022-12-15] MEDS: BENZTROPINE MESYLATE 1 MG TABLET PO SCH ×2 (09:30→18:14)
[2022-12-15] MEDS: DIVALPROEX SPRINKLE 125 MG CAP.SPRINK PO SCH ×3 (09:30→18:14)
[2022-12-15] MEDS: DULOXETINE 60 MG CAPSULE.DR PO SCH ×2 (09:30→18:14)
[2022-12-15] MEDS: METOPROLOL TARTRATE 25 MG TABLET PO SCH ×2 (09:31→20:31)
[2022-12-15] MEDS: HYOSCYAMINE SULFATE 0.125 MG TABLET PO SCH ×3 (09:31→18:14)
[2022-12-15] MEDS: MIRALAX 17 GM POWD.PACK PO SCH ×2 (09:32→17:00)
[2022-12-15] MEDS: APIXABAN 2.5 MG TABLET PO SCH ×2 (09:32→20:34)
[2022-12-15] MEDS: GABAPENTIN 300 MG CAPSULE PO SCH ×3 (09:33→18:16)
[2022-12-15] MEDS: LIDOCAINE 5% PATCH TD SCH (09:33)
[2022-12-15] MEDS: SENNOSIDES 1 TABLET PO SCH (09:33)
[2022-12-15] MEDS: PANTOPRAZOLE SODIUM 40 MG TABLET.DR PO SCH ×2 (09:33→20:31)
[2022-12-15] MEDS: ASCORBIC ACID 500 MG TABLET PO SCH (09:33)
[2022-12-15] MEDS: OLANZAPINE 2.5 MG TABLET PO SCH ×2 (09:33→18:15)
[2022-12-15] MEDS: buPROPion SR 150 MG TABLET.SA PO SCH ×2 (09:33→18:14)
[2022-12-15] MEDS: REMEDY ESSENTIAL ZINC PASTE 113 GM TOP SCH (09:34)
[2022-12-15] MEDS: THERAHONEY GEL 1.5 OZ TUBE TOP SCH (09:35)
[2022-12-15] MEDS: NEOMY/BACITRAC/POLYMI OINT 28.35 GM TUBE TOP SCH (09:35)
[2022-12-15] MEDS: CLOTRIMAZOLE 1% CREAM 30 GM TUBE TOP SCH ×2 (09:35→18:17)
--- NOTE | 2022-12-15 11:30 | NUR ---
Bed bath given. Skin/wound care done as ordered. Repositioned in bed comfortably
--- NOTE | 2022-12-15 18:48 | NUR ---
Refused Miralax. With stool as smear today. On moderate high back rest. Not in distress
[2022-12-15 20:18] VITALS: BP 134/79
[2022-12-15] MEDS: TAMSULOSIN HCL 0.4 MG CAP.SR.24H PO SCH (20:31)
[2022-12-16 00:06] VITALS: BP 102/57
--- NOTE | 2022-12-16 01:27 | NUR ---
received report from Tomeka Schwartz RN.
--- NOTE | 2022-12-16 01:30 | NUR ---
report given to rn will
[2022-12-16] MEDS: OXYCODONE/APAP 5-325 MG TABLET PO PRN ×4 (03:24→20:18)
[2022-12-16 04:15] VITALS: BP 104/47
--- NOTE | 2022-12-16 05:40 | NUR ---
Patient alert oriented, no sob no chest pain, patient on t piece oxygen now, patient was on vent till 0400 am, tolerate well, saturation wnl, no further complain of pain, tele sinus rhythm at 63. cont to monitor.
[2022-12-16] MEDS: LEVOTHYROXINE SODIUM 25 MCG TABLET PO SCH (06:03)
[2022-12-16] MEDS: buPROPion SR 150 MG TABLET.SA PO SCH ×2 (09:20→17:53)
[2022-12-16] MEDS: LIDOCAINE 5% PATCH TD SCH (09:20)
[2022-12-16] MEDS: MIRALAX 17 GM POWD.PACK PO SCH ×2 (09:20→17:53)
[2022-12-16] MEDS: BENZTROPINE MESYLATE 1 MG TABLET PO SCH ×2 (09:20→17:53)
[2022-12-16] MEDS: GABAPENTIN 300 MG CAPSULE PO SCH ×3 (09:23→17:53)
[2022-12-16] MEDS: METOPROLOL TARTRATE 25 MG TABLET PO SCH ×2 (09:23→20:19)
[2022-12-16] MEDS: SENNOSIDES 1 TABLET PO SCH (09:24)
[2022-12-16] MEDS: DICYCLOMINE HCL 20 MG TABLET PO SCH ×4 (09:24→20:17)
[2022-12-16] MEDS: DIVALPROEX SPRINKLE 125 MG CAP.SPRINK PO SCH ×3 (09:24→17:53)
[2022-12-16] MEDS: PANTOPRAZOLE SODIUM 40 MG TABLET.DR PO SCH ×2 (09:24→20:18)
[2022-12-16] MEDS: ASCORBIC ACID 500 MG TABLET PO SCH (09:24)
[2022-12-16] MEDS: DULOXETINE 60 MG CAPSULE.DR PO SCH ×2 (09:24→17:53)
[2022-12-16] MEDS: APIXABAN 2.5 MG TABLET PO SCH ×2 (09:25→20:17)
[2022-12-16] MEDS: OLANZAPINE 2.5 MG TABLET PO SCH ×2 (09:25→17:53)
[2022-12-16] MEDS: HYOSCYAMINE SULFATE 0.125 MG TABLET PO SCH ×3 (09:28→17:55)
[2022-12-16] MEDS: CHLORHEXIDINE GLUCONATE 15 ML MOUTHWASH MM SCH (09:29)
[2022-12-16] MEDS: FLUTICASONE PROP NASAL SPRAY 16 GM BOTTLE NS SCH ×2 (09:29→17:54)
[2022-12-16] MEDS: NEOMY/BACITRAC/POLYMI OINT 28.35 GM TUBE TOP SCH (09:31)
[2022-12-16] MEDS: CLOTRIMAZOLE 1% CREAM 30 GM TUBE TOP SCH ×2 (09:31→17:54)
[2022-12-16] MEDS: REMEDY ESSENTIAL ZINC PASTE 113 GM TOP SCH ×2 (09:40→20:19)
[2022-12-16] MEDS: THERAHONEY GEL 1.5 OZ TUBE TOP SCH (09:41)
--- NOTE | 2022-12-16 10:00 | NUR ---
Rcvd pt. on bed. AAOX4. No SOB at this time. Verbalized pain, Percocet given as ordered and pt tolerated it well.
[2022-12-16 12:05] VITALS: BP 133/72
[2022-12-16 16:19] VITALS: BP 150/75
--- NOTE | 2022-12-16 18:22 | NUR ---
Pt. c/o pain, Percocet given at around 4 pm. Routine meds given and tolerated well. No SOB pt 6lpm oxygen trach. Keep pt clean and dry. skin management done as ordered.
[2022-12-16] MEDS: diphenhydrAMINE 25 MG CAP PO PRN (20:16)
[2022-12-16] MEDS: TAMSULOSIN HCL 0.4 MG CAP.SR.24H PO SCH (20:17)
[2022-12-17] MEDS: diphenhydrAMINE 25 MG CAP PO PRN ×2 (03:17→21:53)
[2022-12-17] MEDS: OXYCODONE/APAP 5-325 MG TABLET PO PRN ×4 (03:18→23:13)
[2022-12-17] MEDS: LEVOTHYROXINE SODIUM 25 MCG TABLET PO SCH (07:15)
[2022-12-17] MEDS: NEOMY/BACITRAC/POLYMI OINT 28.35 GM TUBE TOP SCH (08:24)
[2022-12-17] MEDS: FLUTICASONE PROP NASAL SPRAY 16 GM BOTTLE NS SCH ×2 (08:24→17:28)
[2022-12-17] MEDS: CHLORHEXIDINE GLUCONATE 15 ML MOUTHWASH MM SCH (08:24)
[2022-12-17] MEDS: HYOSCYAMINE SULFATE 0.125 MG TABLET PO SCH ×3 (08:25→17:37)
[2022-12-17] MEDS: GABAPENTIN 300 MG CAPSULE PO SCH ×3 (08:26→17:27)
[2022-12-17] MEDS: ASCORBIC ACID 500 MG TABLET PO SCH (08:26)
[2022-12-17] MEDS: SENNOSIDES 1 TABLET PO SCH (08:26)
[2022-12-17] MEDS: DICYCLOMINE HCL 20 MG TABLET PO SCH ×4 (08:26→20:04)
[2022-12-17] MEDS: DIVALPROEX SPRINKLE 125 MG CAP.SPRINK PO SCH ×3 (08:26→17:24)
[2022-12-17] MEDS: BENZTROPINE MESYLATE 1 MG TABLET PO SCH ×2 (08:26→17:25)
[2022-12-17] MEDS: MIRALAX 17 GM POWD.PACK PO SCH ×2 (08:26→17:25)
[2022-12-17] MEDS: OLANZAPINE 2.5 MG TABLET PO SCH ×2 (08:26→17:25)
[2022-12-17] MEDS: DULOXETINE 60 MG CAPSULE.DR PO SCH ×2 (08:26→17:24)
[2022-12-17] MEDS: LIDOCAINE 5% PATCH TD SCH (08:27)
[2022-12-17] MEDS: APIXABAN 2.5 MG TABLET PO SCH ×2 (08:27→20:06)
[2022-12-17] MEDS: REMEDY ESSENTIAL ZINC PASTE 113 GM TOP SCH ×2 (08:28→20:06)
[2022-12-17] MEDS: THERAHONEY GEL 1.5 OZ TUBE TOP SCH (08:28)
[2022-12-17] MEDS: CLOTRIMAZOLE 1% CREAM 30 GM TUBE TOP SCH ×2 (08:29→17:38)
[2022-12-17] MEDS: METOPROLOL TARTRATE 25 MG TABLET PO SCH ×2 (08:40→20:05)
[2022-12-17] MEDS: buPROPion SR 150 MG TABLET.SA PO SCH ×2 (08:41→17:24)
[2022-12-17] MEDS: PANTOPRAZOLE SODIUM 40 MG TABLET.DR PO SCH ×2 (08:41→20:04)
--- NOTE | 2022-12-17 09:56 | NUR ---
Rcvd pt in bed resting comfortably. VS WNL. No SOB at this time. Suction pt. as ordered. Pt. in trach with 6 LPM O2 saturating 95-96%. Left midline patent and intact. Routine meds given and tolerated well. Percocet given 5/325 at around 9:30 after pt. c/o pain 06/06.
[2022-12-17 11:45] VITALS: BP 149/59
[2022-12-17 16:00] VITALS: BP 123/61
--- NOTE | 2022-12-17 18:24 | NUR ---
Pt. took medication as ordered and tolerated it well. Left upper midline flushed and dressing reinforced. Keep pt. clean, dry, and comfortable. Skin management done as ordered.
[2022-12-17 20:00] VITALS: BP 166/94
[2022-12-17] MEDS: TAMSULOSIN HCL 0.4 MG CAP.SR.24H PO SCH (20:04)
[2022-12-17] MEDS: ACETAMINOPHEN 325 MG TABLET PO PRN (21:00)
[2022-12-18] VITALS: BP 109/60
[2022-12-18] MEDS: ACETAMINOPHEN 325 MG TABLET PO PRN (02:32)
[2022-12-18 04:00] VITALS: BP 115/58
[2022-12-18] MEDS: OXYCODONE/APAP 5-325 MG TABLET PO PRN ×2 (05:21→11:50)
[2022-12-18] MEDS: LEVOTHYROXINE SODIUM 25 MCG TABLET PO SCH (07:09)
[2022-12-18 07:17] LABS: MEAN CORPUSCULAR HEMOGLOBIN 29.5 uug (23.8-33.4); MEAN CORPUSCULAR VOLUME 91.3 fL (73.0-96.2); PLATELET COUNT (AUTO) 323 K/uL (152-348)
[2022-12-18 07:29] LABS: BILIRUBIN,TOTAL 0.2 mg/dL (0.2-1.0); CREATININE 0.9 mg/dL (0.6-1.3); MAGNESIUM 1.7 mg/dL (1.8-2.4); PHOSPHOROUS 4.4 mg/dL (2.5-4.9); POTASSIUM 3.7 mmol/L (3.5-5.1); TOTAL PROTEIN, SERUM 8.2 g/dL (6.4-8.2)
[2022-12-18] MEDS: LIDOCAINE 5% PATCH TD SCH (08:28)
[2022-12-18] MEDS: MIRALAX 17 GM POWD.PACK PO SCH ×2 (08:28→17:06)
[2022-12-18] MEDS: FLUTICASONE PROP NASAL SPRAY 16 GM BOTTLE NS SCH ×2 (08:28→17:05)
[2022-12-18] MEDS: HYOSCYAMINE SULFATE 0.125 MG TABLET PO SCH ×3 (08:28→17:06)
[2022-12-18] MEDS: ASCORBIC ACID 500 MG TABLET PO SCH (08:29)
[2022-12-18] MEDS: DIVALPROEX SPRINKLE 125 MG CAP.SPRINK PO SCH ×3 (08:29→17:06)
[2022-12-18] MEDS: DULOXETINE 60 MG CAPSULE.DR PO SCH ×2 (08:29→17:06)
[2022-12-18] MEDS: CHLORHEXIDINE GLUCONATE 15 ML MOUTHWASH MM SCH (08:29)
[2022-12-18] MEDS: PANTOPRAZOLE SODIUM 40 MG TABLET.DR PO SCH ×2 (08:29→21:15)
[2022-12-18] MEDS: BENZTROPINE MESYLATE 1 MG TABLET PO SCH ×2 (08:29→17:06)
[2022-12-18] MEDS: GABAPENTIN 300 MG CAPSULE PO SCH ×3 (08:30→17:06)
[2022-12-18] MEDS: buPROPion SR 150 MG TABLET.SA PO SCH ×2 (08:30→17:07)
[2022-12-18] MEDS: DICYCLOMINE HCL 20 MG TABLET PO SCH ×4 (08:30→21:16)
[2022-12-18] MEDS: OLANZAPINE 2.5 MG TABLET PO SCH ×2 (08:30→17:07)
[2022-12-18] MEDS: METOPROLOL TARTRATE 25 MG TABLET PO SCH ×2 (08:30→21:17)
[2022-12-18] MEDS: APIXABAN 2.5 MG TABLET PO SCH ×2 (08:35→21:16)
[2022-12-18] MEDS: REMEDY ESSENTIAL ZINC PASTE 113 GM TOP SCH ×2 (08:42→21:19)
[2022-12-18] MEDS: CLOTRIMAZOLE 1% CREAM 30 GM TUBE TOP SCH ×2 (08:42→17:14)
[2022-12-18] MEDS: THERAHONEY GEL 1.5 OZ TUBE TOP SCH (08:43)
[2022-12-18] MEDS: NEOMY/BACITRAC/POLYMI OINT 28.35 GM TUBE TOP SCH (08:44)
[2022-12-18] MEDS ORDERED: MAGNESIUM OXIDE 400 MG TABLET PO ONE (09:30)
[2022-12-18] MEDS: SENNOSIDES 1 TABLET PO SCH (09:42)
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
[2022-12-18 11:46] VITALS: BP 125/72
[2022-12-18 16:39] VITALS: BP 140/81
[2022-12-18] MEDS: diphenhydrAMINE 25 MG CAP PO PRN (18:42)
[2022-12-18 20:00] VITALS: BP 130/73
[2022-12-18] MEDS: TAMSULOSIN HCL 0.4 MG CAP.SR.24H PO SCH (21:15)
[2022-12-19] VITALS: BP 128/69
[2022-12-19 04:00] VITALS: BP 123/64
[2022-12-19] MEDS: OXYCODONE/APAP 5-325 MG TABLET PO PRN ×4 (04:09→21:34)
[2022-12-19] MEDS: diphenhydrAMINE 25 MG CAP PO PRN (04:44)
[2022-12-19] MEDS: LEVOTHYROXINE SODIUM 25 MCG TABLET PO SCH (06:45)
--- NOTE | 2022-12-19 07:09 | NUR ---
Slept well the whole night, easy to arouse alert and oriented x3. In no acute distress. Sinus rhythm on tele. LUKE midline intact and patent. Repositioned, needs assessed and attended to.
[2022-12-19 07:17] LABS: CREATININE 0.9 mg/dL (0.6-1.3); MAGNESIUM 1.7 mg/dL (1.8-2.4); POTASSIUM 4.2 mmol/L (3.5-5.1)
[2022-12-19] MEDS: SENNOSIDES 1 TABLET PO SCH (09:00)
[2022-12-19] MEDS: OLANZAPINE 2.5 MG TABLET PO SCH ×2 (09:14→17:29)
[2022-12-19] MEDS: METOPROLOL TARTRATE 25 MG TABLET PO SCH ×2 (09:14→21:18)
[2022-12-19] MEDS: DULOXETINE 60 MG CAPSULE.DR PO SCH ×2 (09:14→17:28)
[2022-12-19] MEDS: DIVALPROEX SPRINKLE 125 MG CAP.SPRINK PO SCH ×3 (09:14→17:28)
[2022-12-19] MEDS: GABAPENTIN 300 MG CAPSULE PO SCH ×3 (09:15→17:29)
[2022-12-19] MEDS: BENZTROPINE MESYLATE 1 MG TABLET PO SCH ×2 (09:15→17:28)
[2022-12-19] MEDS: PANTOPRAZOLE SODIUM 40 MG TABLET.DR PO SCH ×2 (09:15→21:19)
[2022-12-19] MEDS: buPROPion SR 150 MG TABLET.SA PO SCH ×2 (09:15→17:29)
[2022-12-19] MEDS: HYOSCYAMINE SULFATE 0.125 MG TABLET PO SCH ×3 (09:15→17:29)
[2022-12-19] MEDS: ASCORBIC ACID 500 MG TABLET PO SCH (09:16)
[2022-12-19] MEDS: DICYCLOMINE HCL 20 MG TABLET PO SCH ×4 (09:16→21:18)
[2022-12-19] MEDS: CHLORHEXIDINE GLUCONATE 15 ML MOUTHWASH MM SCH (09:17)
[2022-12-19] MEDS: FLUTICASONE PROP NASAL SPRAY 16 GM BOTTLE NS SCH ×2 (09:17→17:23)
[2022-12-19] MEDS: APIXABAN 2.5 MG TABLET PO SCH ×2 (09:23→21:19)
[2022-12-19] MEDS: MIRALAX 17 GM POWD.PACK PO SCH ×2 (09:24→17:00)
[2022-12-19] MEDS: NEOMY/BACITRAC/POLYMI OINT 28.35 GM TUBE TOP SCH (09:25)
[2022-12-19] MEDS: REMEDY ESSENTIAL ZINC PASTE 113 GM TOP SCH ×2 (09:25→21:36)
[2022-12-19] MEDS: LIDOCAINE 5% PATCH TD SCH (09:25)
[2022-12-19] MEDS: CLOTRIMAZOLE 1% CREAM 30 GM TUBE TOP SCH ×2 (09:25→17:29)
[2022-12-19] MEDS: THERAHONEY GEL 1.5 OZ TUBE TOP SCH (09:25)
[2022-12-19] MEDS ORDERED: MAGNESIUM SULFATE/D5W 100 ML IV SCH (11:00)
[2022-12-19 11:36] VITALS: BP 107/65
[2022-12-19] MEDS ORDERED: MAGNESIUM OXIDE 400 MG TABLET PO ONE (13:15)
[2022-12-19 16:00] VITALS: BP 119/54
[2022-12-19 20:00] VITALS: BP 128/75
[2022-12-19] MEDS: TAMSULOSIN HCL 0.4 MG CAP.SR.24H PO SCH (21:18)
[2022-12-20] VITALS: BP 125/66
[2022-12-20] MEDS: OXYCODONE/APAP 5-325 MG TABLET PO PRN ×2 (03:38→16:43)
[2022-12-20 04:00] VITALS: BP 118/70
[2022-12-20] MEDS: LEVOTHYROXINE SODIUM 25 MCG TABLET PO SCH (06:12)
[2022-12-20 06:45] LABS: CREATININE 0.9 mg/dL (0.6-1.3); POTASSIUM 4.2 mmol/L (3.5-5.1)
--- NOTE | 2022-12-20 07:08 | NUR ---
Patient slept well and remained stable the whole shift.
[2022-12-20] MEDS: CLOTRIMAZOLE 1% CREAM 30 GM TUBE TOP SCH ×2 (08:21→16:43)
[2022-12-20] MEDS: REMEDY ESSENTIAL ZINC PASTE 113 GM TOP SCH ×2 (08:22→20:42)
[2022-12-20] MEDS: LIDOCAINE 5% PATCH TD SCH (08:22)
[2022-12-20] MEDS: ASCORBIC ACID 500 MG TABLET PO SCH (08:22)
[2022-12-20] MEDS: DICYCLOMINE HCL 20 MG TABLET PO SCH ×4 (08:23→20:39)
[2022-12-20] MEDS: DULOXETINE 60 MG CAPSULE.DR PO SCH ×2 (08:23→16:42)
[2022-12-20] MEDS: GABAPENTIN 300 MG CAPSULE PO SCH ×3 (08:23→16:42)
[2022-12-20] MEDS: HYOSCYAMINE SULFATE 0.125 MG TABLET PO SCH ×3 (08:23→16:49)
[2022-12-20] MEDS: buPROPion SR 150 MG TABLET.SA PO SCH ×2 (08:23→16:42)
[2022-12-20] MEDS: OLANZAPINE 2.5 MG TABLET PO SCH ×2 (08:23→16:42)
[2022-12-20] MEDS: DIVALPROEX SPRINKLE 125 MG CAP.SPRINK PO SCH ×3 (08:23→16:42)
[2022-12-20] MEDS: BENZTROPINE MESYLATE 1 MG TABLET PO SCH ×2 (08:24→16:42)
[2022-12-20] MEDS: APIXABAN 2.5 MG TABLET PO SCH ×2 (08:24→20:40)
[2022-12-20] MEDS: PANTOPRAZOLE SODIUM 40 MG TABLET.DR PO SCH ×2 (08:24→20:38)
[2022-12-20] MEDS: SENNOSIDES 1 TABLET PO SCH (08:24)
[2022-12-20] MEDS: CHLORHEXIDINE GLUCONATE 15 ML MOUTHWASH MM SCH (08:25)
[2022-12-20] MEDS: FLUTICASONE PROP NASAL SPRAY 16 GM BOTTLE NS SCH ×2 (08:25→16:49)
[2022-12-20] MEDS: MIRALAX 17 GM POWD.PACK PO SCH ×2 (08:25→16:42)
[2022-12-20] MEDS: METOPROLOL TARTRATE 25 MG TABLET PO SCH ×2 (08:29→20:39)
[2022-12-20] MEDS: THERAHONEY GEL 1.5 OZ TUBE TOP SCH (11:11)
[2022-12-20] MEDS: NEOMY/BACITRAC/POLYMI OINT 28.35 GM TUBE TOP SCH (11:12)
[2022-12-20 11:17] VITALS: BP 140/62
[2022-12-20 15:03] VITALS: BP 117/48
[2022-12-20] MEDS: diphenhydrAMINE 25 MG CAP PO PRN (16:42)
[2022-12-20 20:00] VITALS: BP 144/72
[2022-12-20] MEDS: TAMSULOSIN HCL 0.4 MG CAP.SR.24H PO SCH (20:38)
[2022-12-21] VITALS: BP 120/77
[2022-12-21 04:00] VITALS: BP 125/67
[2022-12-21] MEDS: LEVOTHYROXINE SODIUM 25 MCG TABLET PO SCH (06:15)
[2022-12-21] MEDS: OXYCODONE/APAP 5-325 MG TABLET PO PRN ×3 (06:25→21:18)
[2022-12-21] MEDS: CLOTRIMAZOLE 1% CREAM 30 GM TUBE TOP SCH ×2 (08:23→17:11)
[2022-12-21] MEDS: LIDOCAINE 5% PATCH TD SCH (08:23)
[2022-12-21] MEDS: HYOSCYAMINE SULFATE 0.125 MG TABLET PO SCH ×3 (08:24→17:10)
[2022-12-21] MEDS: CHLORHEXIDINE GLUCONATE 15 ML MOUTHWASH MM SCH (08:24)
[2022-12-21] MEDS: FLUTICASONE PROP NASAL SPRAY 16 GM BOTTLE NS SCH ×2 (08:25→17:11)
[2022-12-21] MEDS: MIRALAX 17 GM POWD.PACK PO SCH ×2 (08:25→17:10)
[2022-12-21] MEDS: DIVALPROEX SPRINKLE 125 MG CAP.SPRINK PO SCH ×3 (08:25→17:09)
[2022-12-21] MEDS: OLANZAPINE 2.5 MG TABLET PO SCH ×2 (08:26→17:10)
[2022-12-21] MEDS: PANTOPRAZOLE SODIUM 40 MG TABLET.DR PO SCH ×2 (08:26→21:17)
[2022-12-21] MEDS: SENNOSIDES 1 TABLET PO SCH (08:26)
[2022-12-21] MEDS: DULOXETINE 60 MG CAPSULE.DR PO SCH ×2 (08:28→17:10)
[2022-12-21] MEDS: METOPROLOL TARTRATE 25 MG TABLET PO SCH ×2 (08:28→21:18)
[2022-12-21] MEDS: DICYCLOMINE HCL 20 MG TABLET PO SCH ×4 (08:28→21:17)
[2022-12-21] MEDS: buPROPion SR 150 MG TABLET.SA PO SCH ×2 (08:29→17:10)
[2022-12-21] MEDS: BENZTROPINE MESYLATE 1 MG TABLET PO SCH ×2 (08:29→17:14)
[2022-12-21] MEDS: ASCORBIC ACID 500 MG TABLET PO SCH (08:30)
[2022-12-21] MEDS: GABAPENTIN 300 MG CAPSULE PO SCH ×3 (08:30→17:09)
[2022-12-21] MEDS: REMEDY ESSENTIAL ZINC PASTE 113 GM TOP SCH ×2 (08:31→21:25)
[2022-12-21] MEDS: NEOMY/BACITRAC/POLYMI OINT 28.35 GM TUBE TOP SCH (08:32)
[2022-12-21] MEDS: THERAHONEY GEL 1.5 OZ TUBE TOP SCH (08:32)
[2022-12-21] MEDS: APIXABAN 2.5 MG TABLET PO SCH ×2 (08:34→21:24)
[2022-12-21 11:23] VITALS: BP 155/90
[2022-12-21] MEDS: diphenhydrAMINE 25 MG CAP PO PRN (12:46)
[2022-12-21 16:37] VITALS: BP 134/72
[2022-12-21 20:00] VITALS: BP 119/73
[2022-12-21] MEDS: TAMSULOSIN HCL 0.4 MG CAP.SR.24H PO SCH (21:17)
[2022-12-22] VITALS: BP 133/74
[2022-12-22] MEDS: diphenhydrAMINE 25 MG CAP PO PRN (00:18)
[2022-12-22 04:00] VITALS: BP 126/70
[2022-12-22] MEDS: LEVOTHYROXINE SODIUM 25 MCG TABLET PO SCH (06:14)
[2022-12-22] MEDS: OXYCODONE/APAP 5-325 MG TABLET PO PRN ×2 (06:19→15:35)
--- NOTE | 2022-12-22 06:45 | NUR ---
patient in bed in comfortable position, RT reported that patient refused to be on vent at night. per pt he is comfortable breathing on cool aerosol. satting 97-99%.SR on tele.no sob or resp distress noted during shift. pain medication requested and given as ordered. noted effective. v/s wnl. LUKE midline intact and patent. all needs met and attended.
--- NOTE | 2022-12-22 08:00 | NUR ---
Received patient on bed awake, alert and oriented. Patient on T-piece with 6 lpm. SR on tele monitor at 90 bpm. Pt. with IV site on left hand g.20. No signs of distress, denies any discomfort and pain at the moment. Addendum: 12/22/22 at 1529 by LORENA SALVADOR RN Pt. IV site on left upper arm midline g.18
[2022-12-22] MEDS: ASCORBIC ACID 500 MG TABLET PO SCH (08:55)
[2022-12-22] MEDS: LIDOCAINE 5% PATCH TD SCH (08:55)
[2022-12-22] MEDS: CHLORHEXIDINE GLUCONATE 15 ML MOUTHWASH MM SCH (08:55)
[2022-12-22] MEDS: HYOSCYAMINE SULFATE 0.125 MG TABLET PO SCH ×3 (08:56→17:07)
[2022-12-22] MEDS: DULOXETINE 60 MG CAPSULE.DR PO SCH ×2 (08:56→17:07)
[2022-12-22] MEDS: DIVALPROEX SPRINKLE 125 MG CAP.SPRINK PO SCH ×3 (08:56→17:07)
[2022-12-22] MEDS: GABAPENTIN 300 MG CAPSULE PO SCH ×3 (08:56→17:07)
[2022-12-22] MEDS: OLANZAPINE 2.5 MG TABLET PO SCH ×2 (08:56→17:07)
[2022-12-22] MEDS: BENZTROPINE MESYLATE 1 MG TABLET PO SCH ×2 (08:56→17:07)
[2022-12-22] MEDS: DICYCLOMINE HCL 20 MG TABLET PO SCH ×4 (08:56→21:11)
[2022-12-22] MEDS: PANTOPRAZOLE SODIUM 40 MG TABLET.DR PO SCH ×2 (08:56→21:11)
[2022-12-22] MEDS: buPROPion SR 150 MG TABLET.SA PO SCH ×2 (08:56→17:07)
[2022-12-22] MEDS: APIXABAN 2.5 MG TABLET PO SCH ×2 (08:58→21:12)
[2022-12-22] MEDS: SENNOSIDES 1 TABLET PO SCH (09:00)
[2022-12-22] MEDS: MIRALAX 17 GM POWD.PACK PO SCH ×2 (09:00→17:00)
[2022-12-22] MEDS: METOPROLOL TARTRATE 25 MG TABLET PO SCH ×2 (09:02→21:11)
[2022-12-22] MEDS: FLUTICASONE PROP NASAL SPRAY 16 GM BOTTLE NS SCH ×2 (09:15→17:08)
[2022-12-22] MEDS: CLOTRIMAZOLE 1% CREAM 30 GM TUBE TOP SCH ×2 (09:30→17:08)
[2022-12-22] MEDS: REMEDY ESSENTIAL ZINC PASTE 113 GM TOP SCH ×2 (09:31→21:13)
[2022-12-22] MEDS: THERAHONEY GEL 1.5 OZ TUBE TOP SCH (09:31)
[2022-12-22] MEDS: NEOMY/BACITRAC/POLYMI OINT 28.35 GM TUBE TOP SCH (09:31)
--- NOTE | 2022-12-22 10:00 | NUR ---
IV site dislodged on left upper arm, re-inserted new IV midline on right upper arm g.18, patent and intact.
[2022-12-22 11:07] VITALS: BP 143/60
--- NOTE | 2022-12-22 14:12 | NUR ---
No changed from morning assessment, medications given and food tolerated. No complain at this time.
--- NOTE | 2022-12-22 15:36 | NUR ---
Patient complaining of pain in left lower leg and foot, Percocet tab given as ordered.
[2022-12-22 16:21] VITALS: BP 149/80
[2022-12-22 20:35] VITALS: BP 127/69
[2022-12-22] MEDS: TAMSULOSIN HCL 0.4 MG CAP.SR.24H PO SCH (21:11)
[2022-12-23 00:03] VITALS: BP 109/65
[2022-12-23 04:16] VITALS: BP 110/48
[2022-12-23] MEDS: LEVOTHYROXINE SODIUM 25 MCG TABLET PO SCH (06:08)
--- NOTE | 2022-12-23 06:41 | NUR ---
PATIENT AO X 4,IN BED SLEPT WELL THROUGHOUT THE SHIFT. PATIENT HAS NOCTURNAL VENT ORDER. PER RT PT REFUSED TO BE ON VENT AND REMAINED ON AEROSOL TOLERATING WELL. NO SOB OR RESP DISTRESS NOTED. NO C/O PAIN OR DISCOMFORT NOTED DURING THE SHIFT.VITAL SIGNS WNL.ALL DUE MEDS GIVEN. REPOSITIONED Q2HRS AND NEEDED. ALL NEEDS MET AND ATTENDED. WILL ENDORSE TO DAY SHIFT.
--- NOTE | 2022-12-23 08:00 | NUR ---
Received patient on bed awake, alert and oriented. Patient on T-piece with 6 lpm. SR on tele monitor at 93 bpm. Denies any pain and discomfort. No signs of distress. Pt. IV site on R UA ML g. 18, intact and patent. Pt. urinate using urinal, +BM. Needs attended
[2022-12-23] MEDS: CHLORHEXIDINE GLUCONATE 15 ML MOUTHWASH MM SCH (08:16)
[2022-12-23] MEDS: LIDOCAINE 5% PATCH TD SCH (08:16)
[2022-12-23] MEDS: HYOSCYAMINE SULFATE 0.125 MG TABLET PO SCH ×3 (08:17→17:31)
[2022-12-23] MEDS: METOPROLOL TARTRATE 25 MG TABLET PO SCH ×2 (08:17→21:10)
[2022-12-23] MEDS: DICYCLOMINE HCL 20 MG TABLET PO SCH (08:17)
[2022-12-23] MEDS: APIXABAN 2.5 MG TABLET PO SCH ×2 (08:18→21:12)
[2022-12-23] MEDS: DIVALPROEX SPRINKLE 125 MG CAP.SPRINK PO SCH ×3 (08:19→17:29)
[2022-12-23] MEDS: SENNOSIDES 1 TABLET PO SCH (08:19)
[2022-12-23] MEDS: buPROPion SR 150 MG TABLET.SA PO SCH ×2 (08:19→17:28)
[2022-12-23] MEDS: DULOXETINE 60 MG CAPSULE.DR PO SCH ×2 (08:19→17:28)
[2022-12-23] MEDS: OLANZAPINE 2.5 MG TABLET PO SCH ×2 (08:19→17:29)
[2022-12-23] MEDS: BENZTROPINE MESYLATE 1 MG TABLET PO SCH ×2 (08:19→17:28)
[2022-12-23] MEDS: MIRALAX 17 GM POWD.PACK PO SCH ×2 (08:19→17:00)
[2022-12-23] MEDS: ASCORBIC ACID 500 MG TABLET PO SCH (08:19)
[2022-12-23] MEDS: GABAPENTIN 300 MG CAPSULE PO SCH ×3 (08:19→17:28)
[2022-12-23] MEDS: PANTOPRAZOLE SODIUM 40 MG TABLET.DR PO SCH ×2 (08:19→21:11)
[2022-12-23] MEDS: CLOTRIMAZOLE 1% CREAM 30 GM TUBE TOP SCH ×2 (08:20→17:31)
[2022-12-23] MEDS: FLUTICASONE PROP NASAL SPRAY 16 GM BOTTLE NS SCH ×2 (08:20→17:32)
[2022-12-23] MEDS: THERAHONEY GEL 1.5 OZ TUBE TOP SCH (08:21)
[2022-12-23] MEDS: REMEDY ESSENTIAL ZINC PASTE 113 GM TOP SCH ×2 (08:21→21:11)
[2022-12-23] MEDS: NEOMY/BACITRAC/POLYMI OINT 28.35 GM TUBE TOP SCH (08:21)
--- NOTE | 2022-12-23 11:00 | NUR ---
COMPLETE BED BATH AND WOUND CARE GIVEN. RIGHT ABDOMINAL FOLDS WOUND CLEAN AND NOTED WITH VERY MINIMAL SEROUS DRAINAGE NON FOWL SMELL.
[2022-12-23 11:55] VITALS: BP 119/59
[2022-12-23] MEDS: DICYCLOMINE HCL 10 MG CAPSULE PO SCH ×3 (14:20→21:11)
--- NOTE | 2022-12-23 15:00 | NUR ---
Seen patient asleep in bed, no signs of distress. No change from morning assessment. Observed accordingly
[2022-12-23 16:46] VITALS: BP 127/78
[2022-12-23] MEDS: OXYCODONE/APAP 5-325 MG TABLET PO PRN (18:58)
[2022-12-23 20:30] VITALS: BP 120/53
[2022-12-23] MEDS: TAMSULOSIN HCL 0.4 MG CAP.SR.24H PO SCH (21:11)
[2022-12-24 00:20] VITALS: BP 97/46
[2022-12-24 04:10] VITALS: BP 112/70
[2022-12-24] MEDS: LEVOTHYROXINE SODIUM 25 MCG TABLET PO SCH (06:06)
--- NOTE | 2022-12-24 06:48 | NUR ---
PATIENT IN BED SLEPT WELL THROUGHOUT THE SHIFT. PATIENT HAS NOCTURNAL VENT ORDER. SRIRAM. WELL. SPO2 99%. NO SOB OR RESP DISTRESS NOTED. NO C/O PAIN OR DISCOMFORT NOTED DURING THE SHIFT.VITAL SIGNS WNL.ALL DUE MEDS GIVEN. REPOSITIONED Q2HRS AND NEEDED.WOUND TX PROVIDED NEEDED. ALL NEEDS MET AND ATTENDED. WILL ENDORSE TO DAY SHIFT.
--- NOTE | 2022-12-24 07:49 | NUR ---
RESTING COMFORTABLY WITH NO SS OF PAIN OR DISTRESS, ON 6L VIA T-PIECE SATURATING 96%, SR ON MONITOR. CONTINUE TELE STATUS ORDERED. AWAITING PLACEMENT
[2022-12-24] MEDS: CHLORHEXIDINE GLUCONATE 15 ML MOUTHWASH MM SCH (09:07)
[2022-12-24] MEDS: LIDOCAINE 5% PATCH TD SCH (09:08)
[2022-12-24] MEDS: FLUTICASONE PROP NASAL SPRAY 16 GM BOTTLE NS SCH ×2 (09:08→16:18)
[2022-12-24] MEDS: BENZTROPINE MESYLATE 1 MG TABLET PO SCH ×2 (09:08→16:17)
[2022-12-24] MEDS: HYOSCYAMINE SULFATE 0.125 MG TABLET PO SCH ×3 (09:08→16:17)
[2022-12-24] MEDS: MIRALAX 17 GM POWD.PACK PO SCH ×2 (09:08→16:17)
[2022-12-24] MEDS: DIVALPROEX SPRINKLE 125 MG CAP.SPRINK PO SCH ×3 (09:08→16:17)
[2022-12-24] MEDS: PANTOPRAZOLE SODIUM 40 MG TABLET.DR PO SCH ×2 (09:09→20:39)
[2022-12-24] MEDS: ASCORBIC ACID 500 MG TABLET PO SCH (09:09)
[2022-12-24] MEDS: OLANZAPINE 2.5 MG TABLET PO SCH ×2 (09:09→16:18)
[2022-12-24] MEDS: DULOXETINE 60 MG CAPSULE.DR PO SCH ×2 (09:09→16:17)
[2022-12-24] MEDS: APIXABAN 2.5 MG TABLET PO SCH ×2 (09:10→20:22)
[2022-12-24] MEDS: GABAPENTIN 300 MG CAPSULE PO SCH ×3 (09:10→16:18)
[2022-12-24] MEDS: DICYCLOMINE HCL 10 MG CAPSULE PO SCH ×4 (09:10→20:22)
[2022-12-24] MEDS: METOPROLOL TARTRATE 25 MG TABLET PO SCH ×2 (09:11→20:22)
[2022-12-24] MEDS: SENNOSIDES 1 TABLET PO SCH (09:12)
[2022-12-24] MEDS: buPROPion SR 150 MG TABLET.SA PO SCH ×2 (09:12→16:18)
[2022-12-24] MEDS: REMEDY ESSENTIAL ZINC PASTE 113 GM TOP SCH ×2 (09:12→20:27)
[2022-12-24] MEDS: CLOTRIMAZOLE 1% CREAM 30 GM TUBE TOP SCH ×2 (09:12→16:19)
[2022-12-24] MEDS: NEOMY/BACITRAC/POLYMI OINT 28.35 GM TUBE TOP SCH (09:13)
[2022-12-24] MEDS: THERAHONEY GEL 1.5 OZ TUBE TOP SCH (09:13)
[2022-12-24 11:53] VITALS: BP 124/57
[2022-12-24 16:26] VITALS: BP 122/74
[2022-12-24 20:00] VITALS: BP 119/59
[2022-12-24] MEDS: OXYCODONE/APAP 5-325 MG TABLET PO PRN (20:20)
[2022-12-24] MEDS: TAMSULOSIN HCL 0.4 MG CAP.SR.24H PO SCH (20:22)
[2022-12-25] VITALS: BP 116/68
[2022-12-25 04:00] VITALS: BP 122/70
[2022-12-25] MEDS: OXYCODONE/APAP 5-325 MG TABLET PO PRN ×2 (04:44→13:08)
--- NOTE | 2022-12-25 04:54 | NUR ---
ALEXANDRA called and confirmed transport today at 1300; MIGUEL aware pt has a trache and is a Bariatric patient.
[2022-12-25] MEDS: LEVOTHYROXINE SODIUM 25 MCG TABLET PO SCH (06:12)
[2022-12-25] MEDS: DULOXETINE 60 MG CAPSULE.DR PO SCH (08:31)
[2022-12-25] MEDS: SENNOSIDES 1 TABLET PO SCH (08:31)
[2022-12-25] MEDS: ASCORBIC ACID 500 MG TABLET PO SCH (08:31)
[2022-12-25] MEDS: GABAPENTIN 300 MG CAPSULE PO SCH ×2 (08:31→13:02)
[2022-12-25] MEDS: PANTOPRAZOLE SODIUM 40 MG TABLET.DR PO SCH (08:31)
[2022-12-25] MEDS: DICYCLOMINE HCL 10 MG CAPSULE PO SCH ×2 (08:31→13:03)
[2022-12-25] MEDS: buPROPion SR 150 MG TABLET.SA PO SCH (08:31)
[2022-12-25] MEDS: DIVALPROEX SPRINKLE 125 MG CAP.SPRINK PO SCH ×2 (08:31→13:02)
[2022-12-25] MEDS: OLANZAPINE 2.5 MG TABLET PO SCH (08:31)
[2022-12-25] MEDS: APIXABAN 2.5 MG TABLET PO SCH (08:32)
[2022-12-25] MEDS: BENZTROPINE MESYLATE 1 MG TABLET PO SCH (08:33)
[2022-12-25] MEDS: METOPROLOL TARTRATE 25 MG TABLET PO SCH (08:37)
[2022-12-25] MEDS: LIDOCAINE 5% PATCH TD SCH (08:39)
[2022-12-25] MEDS: MIRALAX 17 GM POWD.PACK PO SCH (08:39)
[2022-12-25] MEDS: REMEDY ESSENTIAL ZINC PASTE 113 GM TOP SCH (09:03)
[2022-12-25] MEDS: CLOTRIMAZOLE 1% CREAM 30 GM TUBE TOP SCH (09:03)
[2022-12-25] MEDS: THERAHONEY GEL 1.5 OZ TUBE TOP SCH (09:04)
[2022-12-25] MEDS: NEOMY/BACITRAC/POLYMI OINT 28.35 GM TUBE TOP SCH (09:04)
[2022-12-25] MEDS: FLUTICASONE PROP NASAL SPRAY 16 GM BOTTLE NS SCH (09:05)
[2022-12-25] MEDS: HYOSCYAMINE SULFATE 0.125 MG TABLET PO SCH ×2 (09:07→13:03)
[2022-12-25] MEDS: CHLORHEXIDINE GLUCONATE 15 ML MOUTHWASH MM SCH (09:07)
[2022-12-25] MEDS ORDERED: LEVO25TA9 PO (09:26)
[2022-12-25] MEDS ORDERED: APIX2.5T PO (09:26)
[2022-12-25 12:00] VITALS: BP 129/74
--- NOTE | 2022-12-25 14:45 | NUR ---
YAN Narvaez came and picked pt up to his facility [facility]. Pt is stable, no pain, no distress at this time
== END 2022-12-25 15:00 | DRG 207 ==
LOC: ER 23:42 → TRANSITION 11-13 12:18 → TELE3 11-13 13:28 → TRANSITION 11-16 20:10 → CCU 11-17 09:39 → TELE-TD3 11-22 05:41 → TELE3 11-25 15:00
PROVIDERS: ATTEND Nurse Practitioner Acute Care
PROC: 05H533Z Insertion of Infusion Device into Right Subclavian Vein, Percutaneous Approach (ICD-10-PCS; principal; 2022-11-13)
PROC: B546ZZA Ultrasonography of Right Subclavian Vein, Guidance (ICD-10-PCS; 2022-11-13)
PROC: 5A1955Z Respiratory Ventilation, Greater than 96 Consecutive Hours (ICD-10-PCS; 2022-11-16)
PROC: 05H633Z Insertion of Infusion Device into Left Subclavian Vein, Percutaneous Approach (ICD-10-PCS; 2022-11-18)
PROC: B547ZZA Ultrasonography of Left Subclavian Vein, Guidance (ICD-10-PCS; 2022-11-18)
PROC: 0JB93ZZ Excision of Buttock Subcutaneous Tissue and Fascia, Percutaneous Approach (ICD-10-PCS; 2022-11-22)
PROC: 05H533Z Insertion of Infusion Device into Right Subclavian Vein, Percutaneous Approach (ICD-10-PCS; 2022-12-08)
PROC: B546ZZA Ultrasonography of Right Subclavian Vein, Guidance (ICD-10-PCS; 2022-12-08)
PROC: 05H633Z Insertion of Infusion Device into Left Subclavian Vein, Percutaneous Approach (ICD-10-PCS; 2022-12-14)
PROC: B547ZZA Ultrasonography of Left Subclavian Vein, Guidance (ICD-10-PCS; 2022-12-14)
PROC: 05H533Z Insertion of Infusion Device into Right Subclavian Vein, Percutaneous Approach (ICD-10-PCS; 2022-12-22)
PROC: B546ZZA Ultrasonography of Right Subclavian Vein, Guidance (ICD-10-PCS; 2022-12-22)
DX: J15.9 Unspecified bacterial pneumonia (principal); J96.21 Acute and chronic respiratory failure with hypoxia; L89.313 Pressure ulcer of right buttock, stage 3; J96.22 Acute and chronic respiratory failure with hypercapnia; N17.0 Acute kidney failure with tubular necrosis; Z99.11 Dependence on respirator [ventilator] status; E87.4 Mixed disorder of acid-base balance; Z68.43 Body mass index [BMI] 50.0-59.9, adult; E87.1 Hypo-osmolality and hyponatremia; Z93.0 Tracheostomy status; D64.9 Anemia, unspecified; G40.909 Epilepsy, unspecified, not intractable, without status epilepticus; G20 Parkinson's disease; E66.01 Morbid (severe) obesity due to excess calories; E11.9 Type 2 diabetes mellitus without complications; E03.8 Other specified hypothyroidism; M89.8X9 Other specified disorders of bone, unspecified site; N40.0 Benign prostatic hyperplasia without lower urinary tract symptoms; Z79.01 Long term (current) use of anticoagulants; Z86.718 Personal history of other venous thrombosis and embolism; I50.9 Heart failure, unspecified; S21.002A Unspecified open wound of left breast, initial encounter; S31.109A Unspecified open wound of abdominal wall, unspecified quadrant without penetration into peritoneal cavity, initial encounter; X58.XXXA Exposure to other specified factors, initial encounter; Y93.9 Activity, unspecified; Y92.129 Unspecified place in nursing home as the place of occurrence of the external cause; F99 Mental disorder, not otherwise specified; Z20.822 Contact with and (suspected) exposure to COVID-19; I11.0 Hypertensive heart disease with heart failure; F20.9 Schizophrenia, unspecified
CPT/HCPCS: 36415; 36600; 71045; 76770; 82803; 83605; 83735; 83970; 84100; 84155; 84156; 84165; 84300; 84443; 84484; 85025; 86140; 87040; 93005; 93307; 94002; 94003; 94760; 99082-TC; A4663; A6209; A6213; G0378; J0692; J0696; J1650; J1956; J2405; J2543; J3370; J3475; J3490; J3535; J7040; J7042; J7050; J7060; J8499; Q0162; Q0163